=== PATIENT | male | born 1985 | race Caucasian/White ===

== ENCOUNTER 2016-12-25 23:02 | Emergency (ER) | payer OTHER ==
[~2016-12-25] VITALS: Ht 177.8 cm; Wt 151.0 kg
[~2016-12-25 23:02] MED LIST: PERCOCET PO; VIC PO
[2016-12-25 23:57] VITALS: Ht 177.8 cm; Wt 151.0 kg
[2016-12-26] MEDS ORDERED: morphine 4 MG/ML VIAL IV STA (00:47)
[2016-12-26] MEDS ORDERED: ONDANSETRON 4 MG INJ IV STA (00:47)
--- NOTE | 2016-12-26 00:51 | ERD ---
ER Documentation Chief Complaint Date/Time DATE: 12/26/16 TIME: 00:49 Chief Complaint Umbillical hernia for surgery HPI 31-year-old male presents to emergency department for complaints of periumbilical pain started today, patient has history of umbilical hernia, is scheduled for surgery tomorrow afternoon, tonight, he felt a pop in his periumbilical area, started to have the pain afterwards, throbbing pain, 8/10 scale, radiates to the bilateral lower legs. Patient denies any fever or chills. Patient denies any nausea vomiting. Patient denies any diarrhea or constipation. Patient took [place] for pain with only mild relief. ROS All systems reviewed and are negative except as per history of present illness. Medications Home Meds Reported Medications Oxycodone Hcl/Acetaminophen (Percocet) 1 Tab Tab, 1 TAB PO Q6NARC Y 05/20/13 Acetaminophen/Hydrocodone (Vicodin) 1 Tab Tab, 1 TAB PO BID 06/11/11 Allergies Allergies: Coded Allergies: No Known Allergy (Verified , 03/26/12) NKA PER SDS PRE-OP ORDER SHEET 06/11/11 PMhx/Soc History of Surgery: Yes (RIGHT SHOULDER SX, LEFT KNEE SX X2) Anesthesia Reaction: No Hx Neurological Disorder: No Hx Respiratory Disorders: No Hx Cardiac Disorders: No Hx Psychiatric Problems: No Hx Miscellaneous Medical Probl: No Hx Alcohol Use: Yes Hx Substance Use: No Hx Tobacco Use: Yes FmHx Family History: No coronary disease, No diabetes, No other Physical Exam Vitals Vital Signs Date Time Temp Pulse Resp B/P Pulse Ox O2 Delivery O2 Flow Rate FiO2 12/25/16 23:57 99.5 95 20 145/96 100 Physical Exam GENERAL: The patient is well developed and appropriate for usual state of health, in no apparent distress. CHEST: Clear to auscultation bilaterally. There are no rales, wheezes or rhonchi. HEART: Regular rate and rhythm. No murmurs, clicks, rubs or gallops. No S3 or S4. ABDOMEN: Soft, nontender and nondistended. Good bowel sounds. No rebound or guarding. No gross peritonitis. No gross organomegaly or masses. No Alvarez sign or McBurney point tenderness. BACK: No midline or flank tenderness. EXTREMITIES: Equal pulses bilaterally. There is no peripheral clubbing, cyanosis or edema. No focal swelling or erythema. Full range of motion. Grossly neurovascularly intact. NEURO: Alert and oriented. Cranial nerves 2-12 intact. Motor strength in all 4 extremities with 5/5 strength. Sensation grossly intact. Normal speech and gait. SKIN: There is no apparent rash or petechia. The skin is warm and dry. HEMATOLOGIC AND LYMPHATIC: There is no evidence of excessive bruising or lymphedema. No gross cervical, axillary, or inguinal lymphadenopathy. Result Diagram: 12/26/169912/26/1699 Results 24 hrs Laboratory Tests Test 12/26/16 01:00 12/26/16 01:08 White Blood Count 10.910^3/ul Red Blood Count 4.8310^6/ul Hemoglobin 15.3g/dl Hematocrit 45.0% Mean Corpuscular Volume 93.2fl Mean Corpuscular Hemoglobin 31.7pg Mean Corpuscular Hemoglobin Concent 34.0g/dl Red Cell Distribution Width 12.8% Platelet Count 74766^3/UL Mean Platelet Volume 9.6fl Neutrophils % 59.7% Lymphocytes % 29.8% Monocytes % 9.7% Eosinophils % 0.0% Basophils % 0.2% Nucleated Red Blood Cells % 0.0/100WBC Neutrophils # 6.510^3/ul Lymphocytes # 3.210^3/ul Monocytes # 1.110^3/ul Eosinophils # 0.010^3/ul Basophils # 0.010^3/ul Nucleated Red Blood Cells # 0.010^3/ul Sodium Level 142mmol/L Potassium Level 3.7mmol/L Chloride Level 106mmol/L Carbon Dioxide Level 27mmol/L Anion Gap 13 Blood Urea Nitrogen 12mg/dl Creatinine 0.82mg/dl Glucose Level 97mg/dl Calcium Level 8.8mg/dl Total Bilirubin 0.1mg/dl Direct Bilirubin 0.00mg/dl Indirect Bilirubin 0.1mg/dl Aspartate Amino Transf (AST/SGOT) 39IU/L Alanine Aminotransferase (ALT/SGPT) 55IU/L Alkaline Phosphatase 90IU/L Total Protein 7.5g/dl Albumin 3.9g/dl Globulin 3.60g/dl Albumin/Globulin Ratio 1.08 Lipase 87U/L Urine Color LT. YELLOW Urine Clarity CLEAR Urine pH 6.5 Urine Specific [place] 1.025 Urine Ketones NEGATIVE Urine Nitrite NEGATIVE Urine Bilirubin NEGATIVE Urine Urobilinogen 1.0 E.U./dL Urine Leukocyte Esterase NEGATIVE Urine Hemoglobin NEGATIVE Urine Glucose NEGATIVE% Urine Total Protein NEGATIVE Current Medications Medications (Trade) Dose Ordered Sig/Yuki Route PRN Reason Start Time Stop Time Status Last Admin Dose Admin Morphine Sulfate (morphine) 4 mg ONCE STAT IV 12/26/16 00:47 12/26/16 00:49 DC 12/26/16 01:06 Ondansetron HCl 4 mg 4 mg ONCE STAT IV 12/26/16 00:47 12/26/16 00:49 DC 12/26/16 01:06 Sodium Chloride (NS) 100 ml @ ud STK-MED ONCE .ROUTE 12/26/16 01:29 12/26/16 01:30 DC 12/26/16 01:49 Iohexol (Omnipaque 300mg/ ml) 150 ml STK-MED ONCE .ROUTE 12/26/16 01:30 12/26/16 01:31 DC 12/26/16 01:49 PROCEDURE: CT ABDOMEN/PELVIS WITH CONTRAST CLINICAL INDICATION: 31-year-old male with abdominal pain. TECHNIQUE: The study was performed utilizing a [employer] VCT 64-slice CT scanner. Direct axial sections were obtained through the abdomen and pelvis with the use of 100 cc of Omnipaque-300 nonionic intravenous contrast material. Sagittal and coronal reformations were obtained. One or more of the following dose reduction techniques were utilized: automated exposure control, adjustment of the mA and/or kV according to patient's size or use of iterative reconstruction technique. The images were reviewed on a PACS workstation. CTD/ vol = 23.9 mGy; Total Exam DLP = 1734.0 mGy-cm. COMPARISON: None. FINDINGS: The lung bases are unremarkable. There is no evidence for significant pleural effusion. The liver has a normal size and contour without focal areas of abnormal density or contrast enhancement. No intrahepatic nor extrahepatic biliary ductal dilatation is seen. The gallbladder demonstrates no wall thickening nor pericholecystic fluid. No biliary stones are evident. The pancreas is without areas of abnormal attenuation or contrast enhancement. This spleen is identified and has a normal size without abnormal density or contrast enhancement. The adrenal glands are unremarkable. The kidneys are functional bilaterally without abnormal density. No hydroureteronephrosis nor nephroureterolithiasis is evident. The urinary bladder contains urine. There is no evidence for bowel obstruction. The appendix is ankle and is without edema or surrounding inflammatory reaction. There is no significant free fluid. Shotty mesenteric lymph nodes are seen. The prostate is not enlarged however there are central calcifications within it. The aortoiliac vessels are without aneurysmal dilatation. The osseous structures are intact. IMPRESSION: 1. No CT evidence for appendicitis. 2. Shotty mesenteric lymph nodes. .Yaniv Mata MD, MD Date Time Electronically viewed and signed by .Yaniv Mata MD, MD on 12/26/2016 01:57 .M/ CC: MARLON CUELLAR ADULT AND PEDIATRIC NEUROLOGIST Patient was given medication for pain here in emergency department, after treatment, patient verbalized feeling much better. Patient's pain is improved.Patient was given Zofran here in the emergency department. After treatment, patient was able to tolerate po fluids here in the emergency department without any vomiting. There is no signs and symptoms of dehydration. Normal saline IV bolus was given here in emergency department for rehydration, patient tolerated IV fluids. Procedures/MDM Medical Decision Making: Patient abdominal pain is nonspecific at this time, no visualized umbilical hernia or incarcerated hernia noted, no bowel obstruction noted. There is low suspicion for abdominal emergencies at this time. Patients abdominal exam is normal at this time. Patients radiology exam does not show any abdominal emergencies at this time. There is low suspicion for appendicitis , cholecystitis, abdominal aortic aneurysms or peritonitis at this time. There is low suspicion for sepsis. Patient appears well and is hemodynamically stable. Disposition: Home. Condition: Stable Prescription Percocet, Zofran Instructions: Patient is advised to take medications as prescribed. Patient is advised to rest, increase fluid intake and do brat diet for next 1-2 days and progress as tolerated. Patient is advised that if symptoms are worse, severe abdominal pain, uncontrolled vomiting, high fever, severe flank pain, worst signs and symptoms, to return to the emergency department immediately. Otherwise, patient can follow up with primary care doctor on to 2 days, go to appointment for surgery tomorrow as per appointment. Departure Diagnosis: Primary Impression: Abdominal pain Abdominal location: periumbilical Qualified Code: R10.33 - Periumbilical abdominal pain Condition: Stable Patient Instructions: Abdominal Pain Additional Instructions: Patient is advised to take medications as prescribed. Patient is advised to rest , increase fluid intake and do brat diet for next 1-2 days and progress as tolerated. Patient is advised that if symptoms are worse, severe abdominal pain , uncontrolled vomiting, high fever, severe flank pain, worst signs and symptoms , to return to the emergency department immediately. Otherwise, patient can follow up with primary care doctor on to 2 days, go to appointment for surgery tomorrow as per appointment. MARLON CUELLAR NP Dec 26, 2016 00:51
[2016-12-26 01:08] LABS: ADD SCAN DIFF NO
[2016-12-26 01:13] LABS: BASOPHILS % 0.2 % (0.0-2.0); HEMOGLOBIN 15.3 g/dl (14.0-18.0); LYMPHOCYTES # 3.2 10^3/ul (0.8-2.9); LYMPHOCYTES % 29.8 % (15.0-51.0); MEAN CORPUSCULAR HEMOGLOBIN 31.7 pg (29.0-33.0); MEAN CORPUSCULAR VOLUME 93.2 fl (82.0-101.0); MEAN PLATELET VOLUME 9.6 fl (7.4-10.4); MONOCYTE # 1.1 10^3/ul (0.3-0.9); MONOCYTES % 9.7 % (0.0-11.0); NEUTROPHIL # 6.5 10^3/ul (1.6-7.5); NEUTROPHILS % 59.7 % (39.0-77.0); PLATELET COUNT 245 10^3/UL (140-415); RED BLOOD COUNT 4.83 10^6/ul (4.70-6.10); RED CELL DISTRIBUTION WIDTH 12.8 % (11.5-14.5); WHITE BLOOD COUNT 10.9 10^3/ul (4.8-10.8)
[2016-12-26 01:18] LABS: ADD UMIC NO; URINE BILIRUBIN (Dip) NEGATIVE (NEGATIVE); URINE BLOOD (Dip) NEGATIVE (NEGATIVE); URINE COLOR LT. YELLOW (YELLOW); URINE GLUCOSE (Dip) NEGATIVE (NEGATIVE); URINE KETONES (Dip) NEGATIVE (NEGATIVE); URINE LEUKOCYTE ESTERASE (Dip) NEGATIVE (NEGATIVE); URINE NITRITE (Dip) NEGATIVE (NEGATIVE); URINE TOTAL PROTEIN (Dip) NEGATIVE (NEGATIVE); URINE UROBILINOGEN (Dip) 1.0 E.U./dL (0.1-1.0)
[2016-12-26 01:22] LABS: ALBUMIN 3.9 g/dl (3.3-4.9)
[2016-12-26 01:23] LABS: POTASSIUM 3.7 mmol/L (3.5-5.1)
[2016-12-26 01:25] LABS: ALBUMIN/GLOBULIN RATIO 1.08; BILIRUBIN,INDIRECT 0.1 mg/dl (0-1.1); BILIRUBIN,TOTAL 0.1 mg/dl (0.2-1.3); CREATININE 0.82 mg/dl (0.61-1.24); TOTAL PROTEIN 7.5 g/dl (6.1-8.1)
[2016-12-26 01:26] LABS: CALCIUM 8.8 mg/dl (8.4-10.2)
[2016-12-26] MEDS ORDERED: SOD CHLORIDE 0.9% 100 ML ONE (01:29)
[2016-12-26] MEDS ORDERED: IOHEXOL 300MG/ML 150 ML BTL ONE (01:30)
--- NOTE | 2016-12-26 01:57 | RADRPT ---
PROCEDURE: CT ABDOMEN/PELVIS WITH CONTRAST CLINICAL INDICATION: 31-year-old male with abdominal pain. TECHNIQUE: The study was performed utilizing a GE [employer] VCT 64-slice CT scanner. Direct axia l sections were obtained through the abdomen and pelvis with the use of 100 cc of Omnipaque-300 sven onic intravenous contrast material. Sagittal and coronal reformations were obtained. One or more of the following dose reduction techniques were utilized: automated exposure control, adjustment of the mA and/or kV according to patient's size or use of iterative reconstruction technique. The images were reviewed on a PACS workstation. CTD/vol = 23.9 mGy; Total Exam DLP = 1734.0 mGy-cm. COMPARISON: None. FINDINGS: The lung bases are unremarkable. There is no evidence for significant pleural effusion. The liver has a normal size and contour without focal areas of abnormal density or contrast enhancement. No in trahepatic nor extrahepatic biliary ductal dilatation is seen. The gallbladder demonstrates no wall thickening nor pericholecystic fluid. No biliary stones are evident. The pancreas is without areas o f abnormal attenuation or contrast enhancement. This spleen is identified and has a normal size wit hout abnormal density or contrast enhancement. The adrenal glands are unremarkable. The kidneys are functional bilaterally without abnormal density. No hydroureteronephrosis nor nephroureterolithiasis is evident. The urinary bladder contains urine. There is no evidence for bowel obstruction. The ap pendix is ankle and is without edema or surrounding inflammatory reaction. There is no significant f ree fluid. Shotty mesenteric lymph nodes are seen. The prostate is not enlarged however there are central calcifications within it. The aortoiliac vessels are without aneurysmal dilatation. The oss eous structures are intact. IMPRESSION: 1. No CT evidence for appendicitis. 2. Shotty mesenteric lymph nodes. .Yaniv Mata MD, MD Date Time Electronically viewed and signed by .Yaniv Mata MD, on 12/26/2016 01:57 .Kelly/
[2016-12-26] MEDS ORDERED: OXYC-279 PO (02:06)
[2016-12-26] MEDS ORDERED: ONDA4TAB14 PO (02:06)
[2016-12-26 02:55] VITALS: BP 120/67; PULSE 80; RESP 20; TEMP 98.5
== END 2016-12-26 02:56 | disposition home or self-care (01) ==
LOC: FTE 23:02
DX: R10.33 Periumbilical pain (principal); F17.210 Nicotine dependence, cigarettes, uncomplicated
CPT/HCPCS: 36415; 74177; 80053; 81003; 83690; 85025; 96374; 96375; J2270; J2405; Q9967; Z7502; Z7610

== ENCOUNTER 2017-03-03 20:54 | Emergency (ER) | payer OTHER ==
[~2017-03-03] VITALS: Ht 177.8 cm; Wt 152.5 kg
[~2017-03-03 20:54] MED LIST changes: +ONDA4TAB14 PO; +OXYC-279 PO
[2017-03-03 21:01] VITALS: Ht 177.8 cm; Wt 152.5 kg
[2017-03-03] MEDS ORDERED: HYDROmorphONE 1 MG/ML SYG IV STA (23:14)
[2017-03-03] MEDS ORDERED: ONDANSETRON 4 MG INJ IV STA (23:14)
[2017-03-03] MEDS ORDERED: SOD CHLORIDE 0.9% 1,000 ML IV STA (23:14)
[2017-03-04 00:07] LABS: ADD SCAN DIFF NO; BASOPHILS % 0.2 % (0.0-2.0); HEMATOCRIT 45.9 % (42.0-52.0); HEMOGLOBIN 15.7 g/dl (14.0-18.0); MEAN CORPUSCULAR HEMOGLOBIN 31.6 pg (29.0-33.0); MEAN CORPUSCULAR HGB CONC 34.2 g/dl (32.0-37.0); MEAN CORPUSCULAR VOLUME 92.4 fl (82.0-101.0); MEAN PLATELET VOLUME 9.3 fl (7.4-10.4); MONOCYTE # 0.8 10^3/ul (0.3-0.9); MONOCYTES % 6.8 % (0.0-11.0); NEUTROPHIL # 7.2 10^3/ul (1.6-7.5); NEUTROPHILS % 65.4 % (39.0-77.0); PLATELET COUNT 249 10^3/UL (140-415); RED BLOOD COUNT 4.97 10^6/ul (4.70-6.10); RED CELL DISTRIBUTION WIDTH 12.5 % (11.5-14.5)
[2017-03-04 00:13] LABS: ADD UMIC NO; URINE BILIRUBIN (Dip) NEGATIVE (NEGATIVE); URINE BLOOD (Dip) NEGATIVE (NEGATIVE); URINE COLOR LT. YELLOW (YELLOW); URINE GLUCOSE (Dip) NEGATIVE (NEGATIVE); URINE KETONES (Dip) NEGATIVE (NEGATIVE); URINE LEUKOCYTE ESTERASE (Dip) NEGATIVE (NEGATIVE); URINE NITRITE (Dip) NEGATIVE (NEGATIVE); URINE TOTAL PROTEIN (Dip) NEGATIVE (NEGATIVE); URINE UROBILINOGEN (Dip) 0.2 E.U./dL (0.1-1.0)
--- NOTE | 2017-03-04 00:20 | RADRPT ---
PROCEDURE: ULTRASOUND TESTICULAR CLINICAL INDICATION: 31-year-old male with left-sided testicular pain. TECHNIQUE: Multiple sonographic images of the scrotal region were obtained utilizing a linear arra y transducer with grayscale and color-flow and a Doppler imaging. The images were reviewed on a high -resolution PACS workstation. COMPARISON: None. FINDINGS: The right testicle is well visualized and has a normal echotexture. No focal areas of abnormal echog enicity are visualized. The right testicle measures 4.0 x 2.3 x 2.5 cm. There is normal color-flow. The right epididymis is visualized and measures approximately measures 9 x 4 x 5 mm. There is normal color-flow. There is a small right-sided hydrocele. There is a small echogenic focus within the left testicle measuring 3 x 2 mm which shadowing most marshall ggestive of a calcification. The left testicle measures 3.9 x 2.6 x 2.3 cm. There is normal color-f low. The left epididymis is visualized and measures approximately measures 11 x 7 x 5 mm. There is n ormal color-flow. There is a small left-sided hydrocele. IMPRESSION: 1. No sonographic evidence for testicular torsion. 2. Small bilateral hydroceles. 3. Small left testicular 3 x 2 mm calcification most likely due to prior infectious process or trau ma. .Yaniv Mata MD, MD Date Time Electronically viewed and signed by .Yaniv Mata MD, MD on 03/04/2017 00:20 .M/
[2017-03-04 00:28] LABS: ALBUMIN 4.4 g/dl (3.3-4.9); ALBUMIN/GLOBULIN RATIO 1.25; BILIRUBIN,INDIRECT 0.2 mg/dl (0-1.1); BILIRUBIN,TOTAL 0.2 mg/dl (0.2-1.3); CALCIUM 9.5 mg/dl (8.4-10.2); CREATININE 0.76 mg/dl (0.61-1.24); TOTAL PROTEIN 7.9 g/dl (6.1-8.1)
[2017-03-04] MEDS ORDERED: IOHEXOL 300MG/ML 150 ML BTL ONE (00:47)
[2017-03-04] MEDS ORDERED: SOD CHLORIDE 0.9% 100 ML ONE (00:47)
--- NOTE | 2017-03-04 01:05 | ERD ---
ER Documentation Chief Complaint Date/Time DATE: 03/04/17 TIME: 01:03 Chief Complaint Pt has umbilical hernia that is not reduceable, PCP told to come here HPI This is a 31-year-old male presents to the ER with severe umbilical pain secondary to known umbilical hernia. Patient has had this hernia over the last 6 months. On Friday night patient went to another hospital where hernia was reduced, however on Friday afternoon hernia popped out again. Since then patient has had increasing pain and has had nausea with no vomiting. Patient states that pain is severe and radiates down into his left testicle. Patient denies any urinary frequency or dysuria. Patient states that he has been constipated over the last 2 days. Patient denies any fevers or chills. His primary care doctor told to come to the ER since patient said he cannot reduce hernia. ROS 12 point review of systems was done, all negative except per HPI. Medications Home Meds Active Scripts Oxycodone HCl/Acetaminophen (Percocet 5-325 mg Tablet) 1 Each Tablet, 1 EACH PO Q6, #15 TAB Prov:VARUN HARRIS 03/04/17 Ibuprofen* (Motrin*) 600 Mg Tab, 600 MG PO Q6, #30 TAB Prov:VARUN HARRIS 03/04/17 Ondansetron (Ondansetron Odt) 4 Mg Tab.rapdis, 4 MG PO Q8 Y for NAUSEA AND/OR VOMITING, #30 TAB Prov:MARLON CUELLAR [employer] T[employer]ER 12/26/16 Oxycodone HCl/Acetaminophen (Percocet 5-325 mg Tablet) 1 Each Tablet, 1 EACH PO Q6 for SEVERE PAIN LEVEL 7-10, #20 TAB Prov:MARLON CUELLAR [employer] 12/26/16 Reported Medications Oxycodone Hcl/Acetaminophen (Percocet) 1 Tab Tab, 1 TAB PO Q6NARC Y 05/20/13 Acetaminophen/Hydrocodone (Vicodin) 1 Tab Tab, 1 TAB PO BID 06/11/11 Allergies Allergies: Coded Allergies: No Known Allergy (Verified , 03/03/17) NKA PER SDS PRE-OP ORDER SHEET 06/11/11 PMhx/Soc History of Surgery: Yes (left knee surgery) Anesthesia Reaction: No Hx Neurological Disorder: No Hx Respiratory Disorders: No Hx Cardiac Disorders: No Hx Psychiatric Problems: No Hx Miscellaneous Medical Probl: Yes (hernia) Hx Alcohol Use: No Hx Substance Use: No Hx Tobacco Use: Yes Smoking Status: Current every day smoker Physical Exam Vitals Vital Signs Date Time Temp Pulse Resp B/P Pulse Ox O2 Delivery O2 Flow Rate FiO2 03/03/17 21:01 99.1 97 20 146/102 100 Physical Exam GENERAL: The patient is well developed and appropriate for usual state of health , in no apparent distress. Patient is obese. HEENT: Atraumatic. CHEST: Clear to auscultation bilaterally. There are no rales, wheezes or rhonchi. HEART: Regular rate and rhythm. No murmurs, clicks, rubs or gallops. ABDOMEN: Umbilical hernia that is extremely tender to palpation. Good bowel sounds. No rebound or guarding. No gross peritonitis. No gross organomegaly or masses. No Alvarez sign or McBurney point tenderness. BACK: No midline or flank tenderness. EXTREMITIES: Equal pulses bilaterally. There is no peripheral clubbing, cyanosis or edema. No focal swelling or erythema. Full range of motion. Grossly neurovascularly intact. NEURO: Alert and oriented. Result Diagram: 03/03/17 2355 03/03/17 2355 Results 24 hrs Laboratory Tests Test 03/03/17 23:55 White Blood Count 11.010^3/ul Red Blood Count 4.9710^6/ul Hemoglobin 15.7g/dl Hematocrit 45.9% Mean Corpuscular Volume 92.4fl Mean Corpuscular Hemoglobin 31.6pg Mean Corpuscular Hemoglobin Concent 34.2g/dl Red Cell Distribution Width 12.5% Platelet Count 27604^3/UL Mean Platelet Volume 9.3fl Neutrophils % 65.4% Lymphocytes % 27.0% Monocytes % 6.8% Eosinophils % 0.0% Basophils % 0.2% Nucleated Red Blood Cells % 0.0/100WBC Neutrophils # 7.210^3/ul Lymphocytes # 3.010^3/ul Monocytes # 0.810^3/ul Eosinophils # 0.010^3/ul Basophils # 0.010^3/ul Nucleated Red Blood Cells # 0.010^3/ul Urine Color LT. YELLOW Urine Clarity CLEAR Urine pH 7.0 Urine Specific [place] 1.015 Urine Ketones NEGATIVE Urine Nitrite NEGATIVE Urine Bilirubin NEGATIVE Urine Urobilinogen 0.2 E.U./dL Urine Leukocyte Esterase NEGATIVE Urine Hemoglobin NEGATIVE Urine Glucose NEGATIVE% Urine Total Protein NEGATIVE Sodium Level 143mmol/L Potassium Level 4.0mmol/L Chloride Level 105mmol/L Carbon Dioxide Level 29mmol/L Anion Gap 13 Blood Urea Nitrogen 12mg/dl Creatinine 0.76mg/dl Glucose Level 83mg/dl Calcium Level 9.5mg/dl Total Bilirubin 0.2mg/dl Direct Bilirubin 0.00mg/dl Indirect Bilirubin 0.2mg/dl Aspartate Amino Transf (AST/SGOT) 45IU/L Alanine Aminotransferase (ALT/SGPT) 74IU/L Alkaline Phosphatase 80IU/L Total Protein 7.9g/dl Albumin 4.4g/dl Globulin 3.50g/dl Albumin/Globulin Ratio 1.25 Lipase 93U/L Current Medications Medications (Trade) Dose Ordered Sig/Yuki Route PRN Reason Start Time Stop Time Status Last Admin Dose Admin Sodium Chloride (NS) 1,000 ml @ 1,000 mls/hr Q1H STAT IV 03/03/17 23:14 03/04/17 00:13 DC 03/04/17 00:11 Hydromorphone HCl (Dilaudid) 1 mg ONCE STAT IV 03/03/17 23:14 03/03/17 23:16 DC 03/04/17 00:10 Ondansetron HCl 4 mg 4 mg ONCE STAT IV 03/03/17 23:14 03/03/17 23:16 DC 03/04/17 00:10 Sodium Chloride (NS) 100 ml @ ud STK-MED ONCE .ROUTE 03/04/17 00:47 03/04/17 00:48 DC 03/04/17 01:06 Iohexol (Omnipaque 300mg/ ml) 150 ml STK-MED ONCE .ROUTE 03/04/17 00:47 03/04/17 00:48 DC 03/04/17 01:06 Hydromorphone HCl (Dilaudid) 1 mg ONCE STAT IV 03/04/17 01:34 03/04/17 01:35 DC 03/04/17 01:47 Procedures/MDM This is a 31-year-old male that presents to the ER with a known umbilical hernia and umbilical pain. At this time I was unable to feel hernia on physical examination, I doubt that hernia is strangulated. CT imaging was done and there was only a small umbilical fat-containing hernia. Patient is afebrile and his pain was controlled in the ER with 2 mg of Dilaudid. I discussed his case with my supervising physician , and he agrees with my medical decision making. Patient will be sent home with ibuprofen and Percocet. He needs to follow-up with the surgeon tomorrow. Patient my medical decision making with the patient he understands and agrees with plan. Patient should return to ER sooner if symptoms worsen. Departure Diagnosis: Primary Impression: Umbilical hernia Condition: Stable VARUN HARRIS Mar 04, 2017 01:05
--- NOTE | 2017-03-04 01:20 | RADRPT ---
PROCEDURE: CT ABDOMEN/PELVIS WITH CONTRAST CLINICAL INDICATION: 31-year-old male with abdominal pain. TECHNIQUE: The study was performed utilizing a GE [employer] VCT 64-slice CT scanner. Direct axia l sections were obtained through the abdomen and pelvis with the use of 100 cc of Omnipaque-300 sven onic intravenous contrast material. Sagittal and coronal reformations were obtained. One or more of the following dose reduction techniques were utilized: automated exposure control, adjustment of the mA and/or kV according to patient's size or use of iterative reconstruction technique. The images were reviewed on a PACS workstation. CTD/vol = 23.9 mGy; Total Exam DLP = 1832.2 mGy-cm. COMPARISON: CT abdomen/pelvis December 26, 2016; testicular ultrasound March 03, 2017. FINDINGS: The lung bases are unremarkable. There is no evidence for significant pleural effusion. The liver has a normal size and contour without focal areas of abnormal density or contrast enhancement. No in trahepatic nor extrahepatic biliary ductal dilatation is seen. The gallbladder demonstrates no wall thickening nor pericholecystic fluid. No biliary stones are evident. The pancreas is without areas o f abnormal attenuation or contrast enhancement. This spleen is identified and has a normal size wit hout abnormal density or contrast enhancement. The adrenal glands are unremarkable. The kidneys are functional bilaterally without abnormal density. No hydroureteronephrosis nor nephroureterolithiasis is evident. The urinary bladder contains urine. There is a small umbilical hernia present with an o pening of 12 x 15 mm containing fat without significant interval change. There is mild retained sto ol within the colon without obstruction. The appendix is retrocecal and is without edema or surrounding inflammatory reaction. There is no significant free fluid. There is a small nonspecific left lower quadrant 7 x 7 mm mesenteric calcification. Additional shotty mesenteric lymph nodes are noted. The aortoiliac vessels are without aneurysmal dilatation. The osseous structures are intact. IMPRESSION: 1. Small umbilical hernia containing fat without interval change. 2. Mild retained stool without obstruction. 3. No CT evidence for appendicitis. 4. Shotty mesenteric lymph nodes. .Yaniv Mata MD, MD Date Time Electronically viewed and signed by .Yaniv Mata MD, MD on 03/04/2017 01:20 .Kelly/
[2017-03-04] MEDS ORDERED: HYDROmorphONE 1 MG/ML SYG IV STA (01:34)
[2017-03-04] MEDS ORDERED: IBUP-1542 PO (01:46)
[2017-03-04] MEDS ORDERED: OXYC-279 PO (01:47)
[2017-03-04 02:24] VITALS: BP 115/65; PULSE 85; RESP 20; TEMP 98
== END 2017-03-04 02:25 | disposition home or self-care (01) ==
LOC: FTE 20:54
DX: K42.9 Umbilical hernia without obstruction or gangrene (principal); F17.210 Nicotine dependence, cigarettes, uncomplicated; R11.0 Nausea
CPT/HCPCS: 36415; 74177; 76870; 80053; 81003; 83690; 85025; 96374; 96375; 96376; J1170; J2405; J7030; Q9967; Z7502; Z7610

== ENCOUNTER 2017-05-05 16:02 | Emergency (ER) | payer OTHER ==
[~2017-05-05] VITALS: Ht 177.8 cm; Wt 148.0 kg
[~2017-05-05 16:02] MED LIST changes: +IBUP-1542 PO
[2017-05-05 16:13] VITALS: Ht 177.8 cm; Wt 148.0 kg
[2017-05-05] MEDS ORDERED: SOD CHLORIDE 0.9% 1,000 ML IV STA (16:47)
[2017-05-05] MEDS ORDERED: ONDANSETRON 4 MG INJ IV STA (16:47)
[2017-05-05] MEDS ORDERED: HYDROmorphONE 1 MG/ML SYG IV STA (16:47)
[2017-05-05 17:13] LABS: BASOPHILS % 0.2 % (0.0-2.0); HEMATOCRIT 48.3 % (42.0-52.0); HEMOGLOBIN 16.3 g/dl (14.0-18.0); LYMPHOCYTES # 2.7 10^3/ul (0.8-2.9); LYMPHOCYTES % 28.6 % (15.0-51.0); MEAN CORPUSCULAR HGB CONC 33.7 g/dl (32.0-37.0); MEAN CORPUSCULAR VOLUME 91.8 fl (82.0-101.0); MEAN PLATELET VOLUME 9.5 fl (7.4-10.4); MONOCYTE # 0.9 10^3/ul (0.3-0.9); MONOCYTES % 9.7 % (0.0-11.0); NEUTROPHILS % 61.1 % (39.0-77.0); PLATELET COUNT 274 10^3/UL (140-415); RED BLOOD COUNT 5.26 10^6/ul (4.70-6.10); RED CELL DISTRIBUTION WIDTH 13.1 % (11.5-14.5); WHITE BLOOD COUNT 9.3 10^3/ul (4.8-10.8)
[2017-05-05 17:18] LABS: ADD UMIC YES; UR ASCORBIC ACID NEGATIVE (NEGATIVE); UR BILIRUBIN (Dip) NEGATIVE (NEGATIVE); UR BLOOD (Dip) NEGATIVE (NEGATIVE); UR CLARITY CLOUDY (CLEAR); UR COLOR AMBER (YELLOW); UR GLUCOSE (Dip) NEGATIVE (NEGATIVE); UR KETONES (Dip) NEGATIVE (NEGATIVE); UR LEUKOCYTE ESTERASE (Dip) NEGATIVE Leu/ul (NEGATIVE); UR NITRITE (Dip) NEGATIVE (NEGATIVE); UR RBC 0 /HPF (0-5); UR SPECIFIC GRAVITY (Dip) 1.019 (1.003-1.030); UR TOTAL PROTEIN (Dip) NEGATIVE (NEGATIVE); UR UROBILINOGEN (Dip) 1+ mg/dL (NEGATIVE)
[2017-05-05 17:36] LABS: ALBUMIN 4.4 g/dl (3.3-4.9); ALBUMIN/GLOBULIN RATIO 1.12; BILIRUBIN,INDIRECT 0.3 mg/dl (0-1.1); BILIRUBIN,TOTAL 0.3 mg/dl (0.2-1.3); CALCIUM 9.4 mg/dl (8.4-10.2); CREATININE 0.65 mg/dl (0.61-1.24); POTASSIUM 3.8 mmol/L (3.5-5.1); TOTAL PROTEIN 8.3 g/dl (6.1-8.1)
--- NOTE | 2017-05-05 17:57 | RADRPT ---
PROCEDURE: Chest x-ray CLINICAL INDICATION: Shortness of breath TECHNIQUE: Chest single view COMPARISON: None FINDINGS: The heart is normal in size. The pulmonary vessels are normal in caliber. The lungs are clear. Th e costophrenic angles are sharp. The visualized bony thorax is unremarkable. IMPRESSION: No acute cardiopulmonary disease. RPTAT: HH .Godfrey Whitfield MD, Date Time Electronically viewed and signed by .Godfrey Whitfield MD, MD on 05/05/2017 17:57 .W/
[2017-05-05] MEDS ORDERED: IOHEXOL 300MG/ML 150 ML BTL ONE (18:13)
[2017-05-05] MEDS ORDERED: SOD CHLORIDE 0.9% 100 ML ONE (18:13)
--- NOTE | 2017-05-05 18:41 | RADRPT ---
PROCEDURE: US Scrotal CLINICAL INDICATION: Left testicular pain TECHNIQUE: Images were taken during real time interrogation of the scrotum. Color Doppler was also performed. COMPARISON: 03/03/2017 FINDINGS: Right Testicle: Is normal in size measuring 4.0 x 2.7 x 2.3 cm No mass is identified. The echotexture is normal. There is normal vascular flow on color Doppler. There is no hydrocele. No varicocele is evident. Left testicle: Is slightly smaller in size measuring 3.0 x 2.9 x 1.9 cm A 1.3 mm echogenic focus is again seen within the left testicle. No other lesion is evident. There is normal vascular flow on color Doppler. There is no hydrocele. No varicocele is identified. Right Epidydemus: Appears normal. Left Epedidymus: A 1.2 mm cyst is seen within the left epididymal head. IMPRESSION: 1. The testicles are within normal range in size of the left testicle is somewhat smaller than the right. There is again a 1.3 mm echogenic focus within the medial left testicle, which mammogram the present a calcification. No intratesticular mass is evident. Arterial flow is again demonstrated i n each testicle. 2. No significant hydrocele is presently identified. 3. A 1.2 mm cyst is now seen within the left epididymal head. Physician Collin Date Time Electronically viewed and signed by Physician Collin on 05/05/2017 18:40 RH/
--- NOTE | 2017-05-05 18:47 | RADRPT ---
PROCEDURE: US Chest Right CLINICAL INDICATION: Right lateral lump TECHNIQUE: Images taken during real time interrogation of the area palpability within the right la teral chest COMPARISON: None FINDINGS: A complex cystic mass measuring 1.4 x 1.3 x 1.2 cm is seen adjacent to a right lateral rib. The wal l appears slightly nodular with a 1.8 mm nodular projection extending into the lumen. There is mild peripheral hypervascularity. There is increased through transmission. IMPRESSION: At the site of palpability, there is a complex largely cystic lesion mass adjacent to a rib with internal debris and peripheral nodularity and vascularity measuring 1.4 x 1.3 x 1.2 cm Physician Collin Date Time Electronically viewed and signed by Dionne Peck Physician on 05/05/2017 18:46 /
--- NOTE | 2017-05-05 18:51 | RADRPT ---
PROCEDURE: CT abdomen and pelvis with IV contrast CLINICAL INDICATION: Abdominal pain and testicular pain. TECHNIQUE: Axial images were obtained through the abdomen and pelvis after the IV administration o f 100 cc Omnipaque 300 IV contrast. Coronal and sagittal reconstructions were obtained. Automated e xposure control was utilized. DLP = 1610.4 mGy-cm. CTDiol= 23.8 mGy. One or more of the following post reduction techniques were used: - Automated exposure control. - Adjustment of the mA and/or Kv according to patient's size. - Use of iterative reconstruction technique COMPARISON: March 04, 2017 FINDINGS: The visualized lower lungs are clear. Heart size is within normal limits. The liver, gallbladder, pancreas, spleen and adrenals are unremarkable. The kidneys demonstrate a normal appearance. No obstructive uropathy is observed. The bladder is fi lled with a small to moderate amount of urine. The prostate and seminal vesicles are unremarkable. Air and stool are seen scattered within the colon. The appendix is normal. No dilated loops of sm all bowel are observed. The stomach and duodenum are unremarkable. No intra-abdominal or pelvic free fluid or fluid collections are observed. No intra-abdominal or pe lvic lymphadenopathy is observed. The arterial vasculature demonstrates a normal appearance. The osseous structures appear intact. Mild degenerative changes are seen in the spine. Small, fat filled umbilical hernia is seen. IMPRESSION: No visualized acute intra-abdominal or pelvic process. Mild degenerative changes in the spine. Small, fat filled umbilical hernia. RPTAT: AA .Chente Hussein MD, MD Date Time Electronically viewed and signed by .Chente Hussein MD, MD on 05/05/2017 18:50 .P/
[2017-05-05] MEDS ORDERED: HYDR-906 PO (19:33)
[2017-05-05] MEDS ORDERED: SULF1TAB31 PO (19:33)
[2017-05-05] MEDS ORDERED: IBUP800T25 PO (19:33)
[2017-05-05] MEDS ORDERED: CEPH-443 PO (19:33)
--- NOTE | 2017-05-05 19:46 | ERD ---
ER Documentation Chief Complaint Date/Time DATE: 05/05/17 TIME: 19:38 Chief Complaint Pt with AP and tisticular pain X 2 days, dx with umbilical hernia. HPI 31-year-old male patient with no significant past medical history presents to the ED complaining of umbilical abdominal pain that started 2 months ago but has worsened in the last 2 days. Reports that he feels like the pain is extending into her left testicle. Patient describes it as a sharp type of pain and rates it a 10 out of 10. Reports that he also has a bump on the right side of his chest that is very painful. Reports that he did call Dr. Nicole and he told him to come here to the hospital. Denies any fever, chills, nausea, vomiting, dysuria, urgency, frequency, hematuria, diarrhea, bloody stools, hematemesis. ROS All systems reviewed and are negative except as per history of present illness. Medications Home Meds Active Scripts Sulfamethoxazole/Trimethoprim* (Bactrim Ds* Tablet) 1 Each Tablet, 1 TAB PO BID for 7 Days, #14 TAB Prov:CARMEN COOPER PA-C 05/05/17 Cephalexin* (Keflex*) 500 Mg Capsule, 500 MG PO QID for 7 Days, CAP Prov:CARMEN COOPER PA-C 05/05/17 Ibuprofen* (Motrin*) 800 Mg Tab, 800 MG PO Q6, #30 TAB take with food Prov:CARMEN COOPER PA-C 05/05/17 Hydrocodone/Acetaminophen (Ponce 5-325 Tablet) 1 Each Tablet, 1 TAB PO Q6H Y for PAIN, #14 TAB Prov:CARMEN COOPER PA-C 05/05/17 Oxycodone HCl/Acetaminophen (Percocet 5-325 mg Tablet) 1 Each Tablet, 1 EACH PO Q6, #15 TAB Prov:VARUN HARRIS 03/04/17 Ibuprofen* (Motrin*) 600 Mg Tab, 600 MG PO Q6, #30 TAB Prov:VARUN HARRIS 03/04/17 Ondansetron (Ondansetron Odt) 4 Mg Tab.rapdis, 4 MG PO Q8 Y for NAUSEA AND/OR VOMITING, #30 TAB Prov:MARLON CUELLAR NP 12/26/16 Oxycodone HCl/Acetaminophen (Percocet 5-325 mg Tablet) 1 Each Tablet, 1 EACH PO Q6 for SEVERE PAIN LEVEL 7-10, #20 TAB Prov:MARLON CUELLAR NAN 12/26/16 Reported Medications Oxycodone Hcl/Acetaminophen (Percocet) 1 Tab Tab, 1 TAB PO Q6NARC Y 05/20/13 Acetaminophen/Hydrocodone (Vicodin) 1 Tab Tab, 1 TAB PO BID 06/11/11 Allergies Allergies: Coded Allergies: No Known Allergy (Verified , 03/03/17) NKA PER SDS PRE-OP ORDER SHEET 06/11/11 PMhx/Soc History of Surgery: Yes (left knee surgery) Anesthesia Reaction: No Hx Neurological Disorder: No Hx Respiratory Disorders: No Hx Cardiac Disorders: No Hx Psychiatric Problems: No Hx Miscellaneous Medical Probl: Yes (hernia) Hx Alcohol Use: No Hx Substance Use: No Hx Tobacco Use: Yes Smoking Status: Current every day smoker Physical Exam Vitals Vital Signs Date Time Temp Pulse Resp B/P Pulse Ox O2 Delivery O2 Flow Rate FiO2 05/05/17 16:13 98.3 84 18 169/91 98 Physical Exam Const: [id number], well-nourished. In no acute distress. Head: Atraumatic, normocephalic Eyes: Normal Conjunctiva without injection. No purulent discharge. ENT: Normal external ear, nose. Moist oropharynx without tonsillar exudates. Non -erythematous pharynx. Uvula midline. No drooling. No trismus. Neck: No cervical midline tenderness. Full range of motion. No meningismus. No cervical lymphadenopathy. No JVD. Resp: Clear to auscultation bilaterally. No wheezing, rhonchi, rales, or crackles. No accessory muscle use. No retractions. Cardio: Regular rate and rhythm. No murmurs, rubs or gallops. Abd: Soft, umbilical pain, non distended. Normal bowel sounds. No palpable masses. No rebound tenderness. No guarding. Negative McBurney's point. Negative psoas sign. Negative obturator sign. : Uncircumcised penis. No paraphimosis. No phimosis. No hernias. Edema noted of the left testicle. No erythema or warmth to touch. Skin: No petechiae or rashes. 2 cm indurated circular cystlike lesion noted on the right lateral aspect of patient's chest with no surrounding erythema or edema. Slight spontaneous purulent discharge was expelled from the site. No bleeding noted. Back: No midline tenderness. No CVA tenderness. Ext: No cyanosis, or edema. Neur: Awake and alert. Normal gait. Normal coordination. Psych: Normal Mood and Affect Result Diagram: 05/05/17 1700 05/05/17 1700 Results 24 hrs Laboratory Tests Test 05/05/17 17:00 White Blood Count 9.310^3/ul Red Blood Count 5.2610^6/ul Hemoglobin 16.3g/dl Hematocrit 48.3% Mean Corpuscular Volume 91.8fl Mean Corpuscular Hemoglobin 31.0pg Mean Corpuscular Hemoglobin Concent 33.7g/dl Red Cell Distribution Width 13.1% Platelet Count 60053^3/UL Mean Platelet Volume 9.5fl Neutrophils % 61.1% Lymphocytes % 28.6% Monocytes % 9.7% Eosinophils % 0.0% Basophils % 0.2% Nucleated Red Blood Cells % 0.0/100WBC Neutrophils # (Manual) 5.710^3/ul Lymphocytes # 2.710^3/ul Monocytes # 0.910^3/ul Eosinophils # 0.010^3/ul Basophils # 0.010^3/ul Nucleated Red Blood Cells # 0.010^3/ul Urine Color JOSEPH Urine Clarity CLOUDY Urine pH 6.0 Urine Specific [place] 1.019 Urine Ketones NEGATIVEmg/dL Urine Nitrite NEGATIVEmg/dL Urine Bilirubin NEGATIVEmg/dL Urine Urobilinogen 1+mg/dL Urine Leukocyte Esterase NEGATIVELeu/ul Urine Microscopic RBC 0/HPF Urine Microscopic WBC 0/HPF Urine Hemoglobin NEGATIVEmg/dL Urine Glucose NEGATIVEmg/dL Urine Total Protein NEGATIVEmg/dl Sodium Level 143mmol/L Potassium Level 3.8mmol/L Chloride Level 101mmol/L Carbon Dioxide Level 30mmol/L Anion Gap 16 Blood Urea Nitrogen 9mg/dl Creatinine 0.65mg/dl Glucose Level 78mg/dl Calcium Level 9.4mg/dl Total Bilirubin 0.3mg/dl Direct Bilirubin 0.00mg/dl Indirect Bilirubin 0.3mg/dl Aspartate Amino Transf (AST/SGOT) 37IU/L Alanine Aminotransferase (ALT/SGPT) 62IU/L Alkaline Phosphatase 91IU/L Total Protein 8.3g/dl Albumin 4.4g/dl Globulin 3.90g/dl Albumin/Globulin Ratio 1.12 Lipase 75U/L Current Medications Medications (Trade) Dose Ordered Sig/Yuki Route PRN Reason Start Time Stop Time Status Last Admin Dose Admin Sodium Chloride (NS) 1,000 ml @ 1,000 mls/hr Q1H STAT IV 05/05/17 16:47 05/05/17 17:46 DC 05/05/17 17:06 Ondansetron HCl (Zofran Inj) 4 mg ONCE STAT IV 05/05/17 16:47 05/05/17 16:53 DC 05/05/17 17:07 Hydromorphone HCl (Dilaudid) 1 mg ONCE STAT IV 05/05/17 16:47 05/05/17 16:53 DC 05/05/17 17:07 IV Flush 10 ml 10 ml STK-MED ONCE .ROUTE 05/05/17 18:13 05/05/17 18:14 DC 05/05/17 18:34 Sodium Chloride (NS) 100 ml @ ud STK-MED ONCE .ROUTE 05/05/17 18:13 05/05/17 18:14 DC 05/05/17 18:34 Iohexol (Omnipaque 300mg/ ml) 150 ml STK-MED ONCE .ROUTE 05/05/17 18:13 05/05/17 18:14 DC 05/05/17 18:34 Acetaminophen/ Hydrocodone Bitart (Ponce (10/325)) 1 tab ONCE ONCE PO 05/05/17 20:00 05/05/17 20:01 DC 05/05/17 19:54 Procedures/MDM This is a 31-year-old male patient with a past medical history of umbilical hernia presents to the ED with same umbilical hernia pain as well as left testicular pain, and right cyst pain of the chest region. Patient is afebrile and nontoxic-appearing. Patient has normal vital signs. Patient was further worked up with CBC, CMP, lipase, UA, CT abdomen and pelvis with contrast, CXR, US soft tissue to evaluate lump lesion of right lateral chest, scrotal ultrasound. Patient's pain and symptoms have improved after treatment with 4 mg IV zofran, 1 mg IV dilaudid, 10-325 mg Ponce. CBC: No leukocytosis. No e/o of systemic infection. No e/o anemia. CMP: No e/o severe acidosis, alkalosis, renal failure, diabetic ketoacidosis, liver disease Lipase within normal limits. Urine: No leukocyte esterase, no nitrites, no hematuria. PROCEDURE: CT abdomen and pelvis with IV contrast CLINICAL INDICATION: Abdominal pain and testicular pain. TECHNIQUE: Axial images were obtained through the abdomen and pelvis after the IV administration of 100 cc Omnipaque 300 IV contrast. Coronal and sagittal reconstructions were obtained. Automated exposure control was utilized. DLP = 1610.4 mGy-cm. CTDiol= 23.8 mGy. One or more of the following post reduction techniques were used: - Automated exposure control. - Adjustment of the mA and/or Kv according to patient's size. - Use of iterative reconstruction technique COMPARISON: March 04, 2017 FINDINGS: The visualized lower lungs are clear. Heart size is within normal limits. The liver, gallbladder, pancreas, spleen and adrenals are unremarkable. The kidneys demonstrate a normal appearance. No obstructive uropathy is observed. The bladder is filled with a small to moderate amount of urine. The prostate and seminal vesicles are unremarkable. Air and stool are seen scattered within the colon. The appendix is normal. No dilated loops of small bowel are observed. The stomach and duodenum are unremarkable. No intra-abdominal or pelvic free fluid or fluid collections are observed. No intra-abdominal or pelvic lymphadenopathy is observed. The arterial vasculature demonstrates a normal appearance. The osseous structures appear intact. Mild degenerative changes are seen in the spine. Small, fat filled umbilical hernia is seen. IMPRESSION: No visualized acute intra-abdominal or pelvic process. Mild degenerative changes in the spine. Small, fat filled umbilical hernia. PROCEDURE: Chest x-ray CLINICAL INDICATION: Shortness of breath TECHNIQUE: Chest single view COMPARISON: None FINDINGS: The heart is normal in size. The pulmonary vessels are normal in caliber. The lungs are clear. The costophrenic angles are sharp. The visualized bony thorax is unremarkable. IMPRESSION: No acute cardiopulmonary disease. PROCEDURE: US Chest Right CLINICAL INDICATION: Right lateral lump TECHNIQUE: Images taken during real time interrogation of the area palpability within the right lateral chest COMPARISON: None FINDINGS: A complex cystic mass measuring 1.4 x 1.3 x 1.2 cm is seen adjacent to a right lateral rib. The wall appears slightly nodular with a 1.8 mm nodular projection extending into the lumen. There is mild peripheral hypervascularity. There is increased through transmission. IMPRESSION: At the site of palpability, there is a complex largely cystic lesion mass adjacent to a rib with internal debris and peripheral nodularity and vascularity measuring 1.4 x 1.3 x 1.2 cm PROCEDURE: US Scrotal CLINICAL INDICATION: Left testicular pain TECHNIQUE: Images were taken during real time interrogation of the scrotum. Color Doppler was also performed. COMPARISON: 03/03/2017 FINDINGS: Right Testicle: Is normal in size measuring 4.0 x 2.7 x 2.3 cm No mass is identified. The echotexture is normal. There is normal vascular flow on color Doppler. There is no hydrocele. No varicocele is evident. Left testicle: Is slightly smaller in size measuring 3.0 x 2.9 x 1.9 cm A 1.3 mm echogenic focus is again seen within the left testicle. No other lesion is evident. There is normal vascular flow on color Doppler. There is no hydrocele. No varicocele is identified. Right Epidydemus: Appears normal. Left Epedidymus: A 1.2 mm cyst is seen within the left epididymal head. IMPRESSION: 1. The testicles are within normal range in size of the left testicle is somewhat smaller than the right. There is again a 1.3 mm echogenic focus within the medial left testicle, which mammogram the present a calcification. No intratesticular mass is evident. Arterial flow is again demonstrated in each testicle. 2. No significant hydrocele is presently identified. 3. A 1.2 mm cyst is now seen within the left epididymal head. Epididymal cyst noted of left testicle could be cause of edema and pain. No testicular torsion. Small umbilical hernia still seen with no signs of incarceration, strangulation. It is reproducible. Low suspicion for gastritis , GERD, peptic ulcer disease, cholecystitis, choledocholithiasis, cholangitis, pancreatitis, appendicitis, bowel obstruction, ileus, volvulus, nephrolithiasis , pyelonephritis, hepatitis, perforated viscus, diverticulitis, abdominal hernia , acute abdomen, mesenteric ischemia or other emergent conditions. Patient also has a infected sebaceous cyst. No indication for incision and drainage at this time as it is very indurated. Wound check in 2 days for further evaluation and treatment. Appropriate for outpatient antibiotics. Low suspicion for scabies, SJS/TEN, erythema multiforme, sepsis, cellulitis, necrotizing fascitis, gangrene, meningococcemia or other emergent conditions. Discharge medications: Bactrim ,Keflex, Ibuprofen Follow up with primary care physician in 1-2 days for referral to a urologist and Dr. Nicole. Instructed patient to return to the ED sooner for any worsening symptoms. Patient's questions were answered. Patient understood and agreed with discharge plan. Patient discharged stable. Departure Diagnosis: Primary Impression: Abdominal pain Abdominal location: periumbilical Qualified Code: R10.33 - Periumbilical abdominal pain Additional Impressions: Sebaceous cyst Testicular pain Condition: Stable Patient Instructions: Abdominal Pain, Hernia (Inguinal, Ventral, Umbilical), Sebaceous Cyst, Infected (Abx Tx), Testicular Pain, Unclear Cause Referrals: LYRIC NICOLE [facility] YOU HAVE RECEIVED A MEDICAL SCREENING EXAM AND THE RESULTS INDICATE THAT YOU DO NOT HAVE A CONDITION THAT REQUIRES URGENT TREATMENT IN THE EMERGENCY DEPARTMENT. FURTHER EVALUATION AND TREATMENT OF YOUR CONDITION CAN WAIT UNTIL YOU ARE SEEN IN YOUR DOCTORS OFFICE WITHIN THE NEXT 1-2 DAYS. IT IS YOUR RESPONSIBILITY TO MAKE AN APPOINTMENT FOR FOLOW-UP CARE. IF YOU HAVE A PRIMARY DOCTOR --you should call your primary doctor and schedule an appointment IF YOU DO NOT HAVE A PRIMARY DOCTOR YOU CAN CALL OUR PHYSICIAN REFERRAL HOTLINE AT IF YOU CAN NOT AFFORD TO SEE A PHYSICIAN YOU CAN CHOSE FROM THE FOLLOWING [facility] [address] [facility]. [facility] [address] [facility] [address] [facility]. [facility] [address] [facility]. [facility] [address] [facility]. [facility] [address] [facility] YOU HAVE RECEIVED A MEDICAL SCREENING EXAM AND THE RESULTS INDICATE THAT YOU DO NOT HAVE A CONDITION THAT REQUIRES URGENT TREATMENT IN THE EMERGENCY DEPARTMENT. FURTHER EVALUATION AND TREATMENT OF YOUR CONDITION CAN WAIT UNTIL YOU ARE SEEN IN YOUR DOCTORS OFFICE WITHIN THE NEXT 1-2 DAYS. IT IS YOUR RESPONSIBILITY TO MAKE AN APPOINTMENT FOR FOLOW-UP CARE. IF YOU HAVE A PRIMARY DOCTOR --you should call your primary doctor and schedule and appointment IF YOU DO NOT HAVE A PRIMARY DOCTOR YOU CAN CALL OUR PHYSICIAN REFERRAL HOTLINE AT . IF YOU CAN NOT AFFORD TO SEE A PHYSICIAN YOU CAN CHOSE FROM THE FOLLOWING [facility] INSTITUTIONS: [facility] [address] [place] [address] [facility] [address] [place], [place] [id number] [place] [address] [address] [place] [address] [facility] Additional Instructions: Follow up in 2 days in your clinic for wound check. Call your primary care doctor TOMORROW for an appointment during the next 2 days for a referral to see a urologist, general surgeon Dr. Nicole. See the doctor sooner or return here if your condition worsens before your appointment time - fever, worsening abdominal pain, vomiting, etc. CARMEN COOPER PA-C May 05, 2017 19:46
[2017-05-05] MEDS ORDERED: HYDROCODONE/APAP (10/325) TAB PO ONE (20:00)
== END 2017-05-05 20:06 | disposition home or self-care (01) ==
LOC: FTE 16:02
DX: R10.33 Periumbilical pain (principal); L72.3 Sebaceous cyst; N50.812 Left testicular pain; F17.210 Nicotine dependence, cigarettes, uncomplicated
CPT/HCPCS: 36415; 71010; 74177; 76536; 76870; 80053; 81001; 83690; 85025; 96374; 96375; J1170; J2405; J7030; Q9967; Z7502; Z7610

== ENCOUNTER 2017-05-12 19:22 | Emergency (ER) | payer OTHER ==
[~2017-05-12] VITALS: Ht 177.8 cm; Wt 148.0 kg
[~2017-05-12 19:22] MED LIST changes: +CEPH-443 PO; +HYDR-906 PO; +IBUP800T25 PO; +SULF1TAB31 PO
[2017-05-12 19:30] VITALS: Ht 177.8 cm; Wt 148.0 kg
[2017-05-12] MEDS ORDERED: morphine 4 MG/ML VIAL IV STA (19:56)
[2017-05-12] MEDS ORDERED: SOD CHLORIDE 0.9% 1,000 ML IV STA (19:56)
[2017-05-12] MEDS ORDERED: ONDANSETRON 4 MG INJ IV STA (19:56)
[2017-05-12 20:14] LABS: URINE BLOOD (Dip) POC Negative (NEGATIVE)
--- NOTE | 2017-05-12 20:14 | ERD ---
ER Documentation Chief Complaint Date/Time DATE: 05/12/17 TIME: 20:12 Chief Complaint INCREASED AP TODAY. RADIATING TO LT TESTICLE. HX UMB HERNIA. +N/V HPI 31-year-old male presents to emergency department for increased pain today. Patient has a history of umbilical hernia, was already seen by a a general surgeon, was told to come to the ER if the pain got worse. Patient states that the pain got worse. Patient described the pain as sharp pain, 8/10 scale, now has episodes of vomiting. Patient states any radiates from the umbilical area to the left testicular area. Patient denies any physical or swelling. Patient denies any trauma in the testicle. Patient denies any hematuria. Patient denies any constipation. Patient denies any fever or chills. Patient was seen here one week ago for the same problem. Patient took [place] at home with mild relief. ROS All systems reviewed and are negative except as per history of present illness. Medications Home Meds Active Scripts Sulfamethoxazole/Trimethoprim* (Bactrim Ds* Tablet) 1 Each Tablet, 1 TAB PO BID for 7 Days, #14 TAB Prov:CARMEN COOPER PA-C 05/05/17 Cephalexin* (Keflex*) 500 Mg Capsule, 500 MG PO QID for 7 Days, CAP Prov:CARMEN COOPER PA-C 05/05/17 Ibuprofen* (Motrin*) 800 Mg Tab, 800 MG PO Q6, #30 TAB take with food Prov:CARMEN COOPER PA-C 05/05/17 Hydrocodone/Acetaminophen ([place] 5-325 Tablet) 1 Each Tablet, 1 TAB PO Q6H Y for PAIN, #14 TAB Prov:CARMEN COOPER PA-C 05/05/17 Oxycodone HCl/Acetaminophen (Percocet 5-325 mg Tablet) 1 Each Tablet, 1 EACH PO Q6, #15 TAB Prov:VARUN HARRIS 03/04/17 Ibuprofen* (Motrin*) 600 Mg Tab, 600 MG PO Q6, #30 TAB Prov:VARUN HARRIS 03/04/17 Ondansetron (Ondansetron Odt) 4 Mg Tab.rapdis, 4 MG PO Q8 Y for NAUSEA AND/OR VOMITING, #30 TAB Prov:MARLON CUELLAR NP 12/26/16 Oxycodone HCl/Acetaminophen (Percocet 5-325 mg Tablet) 1 Each Tablet, 1 EACH PO Q6 for SEVERE PAIN LEVEL 7-10, #20 TAB Prov:MARLON CUELLAR LAUNDRY OPERATOR 12/26/16 Reported Medications Oxycodone Hcl/Acetaminophen (Percocet) 1 Tab Tab, 1 TAB PO Q6NARC Y 05/20/13 Acetaminophen/Hydrocodone (Vicodin) 1 Tab Tab, 1 TAB PO BID 06/11/11 Allergies Allergies: Coded Allergies: No Known Allergy (Verified , 05/12/17) NKA PER SDS PRE-OP ORDER SHEET 06/11/11 PMhx/Soc History of Surgery: Yes (left knee surgery) Anesthesia Reaction: No Hx Neurological Disorder: No Hx Respiratory Disorders: No Hx Cardiac Disorders: No Hx Psychiatric Problems: No Hx Miscellaneous Medical Probl: Yes (hernia) Hx Alcohol Use: No Hx Substance Use: No Hx Tobacco Use: Yes FmHx Family History: No coronary disease, No diabetes, No other Physical Exam Vitals Vital Signs Date Time Temp Pulse Resp B/P Pulse Ox O2 Delivery O2 Flow Rate FiO2 05/12/17 19:30 98.4 89 22 139/91 99 Physical Exam GENERAL: The patient is well developed and appropriate for usual state of health, in no apparent distress. CHEST: Clear to auscultation bilaterally. There are no rales, wheezes or rhonchi. HEART: Regular rate and rhythm. No murmurs, clicks, rubs or gallops. No S3 or S4. ABDOMEN: Soft, tenderness on palpation of periumbilical area. Good bowel sounds. No rebound or guarding. No gross peritonitis. No gross organomegaly or masses. No Alvarez sign or McBurney point tenderness. BACK: No midline or flank tenderness. EXTREMITIES: Equal pulses bilaterally. There is no peripheral clubbing, cyanosis or edema. No focal swelling or erythema. Full range of motion. Grossly neurovascularly intact. NEURO: Alert and oriented. Cranial nerves 2-12 intact. Motor strength in all 4 extremities with 5/5 strength. Sensation grossly intact. Normal speech and gait. SKIN: There is no apparent rash or petechia. The skin is warm and dry. HEMATOLOGIC AND LYMPHATIC: There is no evidence of excessive bruising or lymphedema. No gross cervical, axillary, or inguinal lymphadenopathy. : No scrotal swelling or redness noted, mild tenderness on palpation on the left testicular area, no pedal discharge. Result Diagram: 05/12/17211005/12/172110 Results 24 hrs Laboratory Tests Test 05/12/17 20:20 05/12/17 20:25 05/12/17 21:11 Bedside Urine pH (LAB) 5.5 Bedside Urine Protein (LAB) Trace Bedside Urine Glucose (UA) Negative Bedside Urine Ketones (LAB) Negative Bedside Urine Blood Negative Bedside Urine Nitrite (LAB) Negative Bedside Urine Leukocyte Esterase (L Negative Urine Color YELLOW Urine Clarity CLEAR Urine pH 5.0 Urine Specific [place] 1.026 Urine Ketones NEGATIVEmg/dL Urine Nitrite NEGATIVEmg/dL Urine Bilirubin NEGATIVEmg/dL Urine Urobilinogen 1+mg/dL Urine Leukocyte Esterase TRACELeu/ul Urine Microscopic RBC 0/HPF Urine Microscopic WBC 4/HPF Urine Hemoglobin NEGATIVEmg/dL Urine Glucose NEGATIVEmg/dL Urine Total Protein NEGATIVEmg/dl White Blood Count 10.210^3/ul Red Blood Count 5.1910^6/ul Hemoglobin 16.2g/dl Hematocrit 47.5% Mean Corpuscular Volume 91.5fl Mean Corpuscular Hemoglobin 31.2pg Mean Corpuscular Hemoglobin Concent 34.1g/dl Red Cell Distribution Width 12.8% Platelet Count 56612^3/UL Mean Platelet Volume 9.5fl Neutrophils % 60.8% Lymphocytes % 29.7% Monocytes % 8.8% Eosinophils % 0.0% Basophils % 0.2% Nucleated Red Blood Cells % 0.0/100WBC Neutrophils # (Manual) 610^3/ul Lymphocytes # 3.010^3/ul Monocytes # 0.910^3/ul Eosinophils # 0.010^3/ul Basophils # 0.010^3/ul Nucleated Red Blood Cells # 0.010^3/ul Sodium Level 140mmol/L Potassium Level 3.9mmol/L Chloride Level 102mmol/L Carbon Dioxide Level 29mmol/L Anion Gap 13 Blood Urea Nitrogen 12mg/dl Creatinine 0.69mg/dl Glucose Level 94mg/dl Calcium Level 9.4mg/dl Total Bilirubin 0.2mg/dl Direct Bilirubin 0.00mg/dl Indirect Bilirubin 0.2mg/dl Aspartate Amino Transf (AST/SGOT) 44IU/L Alanine Aminotransferase (ALT/SGPT) 78IU/L Alkaline Phosphatase 95IU/L Total Protein 8.2g/dl Albumin 4.4g/dl Globulin 3.80g/dl Albumin/Globulin Ratio 1.15 Lipase 84U/L Current Medications Medications (Trade) Dose Ordered Sig/Yuki Route PRN Reason Start Time Stop Time Status Last Admin Dose Admin Sodium Chloride (NS) 1,000 ml @ 1,000 mls/hr Q1H STAT IV 05/12/17 19:56 05/12/17 20:55 DC 05/12/17 21:23 Morphine Sulfate (morphine) 4 mg ONCE STAT IV 05/12/17 19:56 05/12/17 19:58 DC 05/12/17 21:23 Ondansetron HCl (Zofran Inj) 4 mg ONCE STAT IV 05/12/17 19:56 05/12/17 19:58 DC 05/12/17 21:22 IV Flush 10 ml 10 ml STK-MED ONCE .ROUTE 05/12/17 22:08 05/12/17 22:09 DC 05/12/17 23:03 Sodium Chloride (NS) 100 ml @ ud STK-MED ONCE .ROUTE 05/12/17 22:08 05/12/17 22:09 DC 05/12/17 23:03 Iohexol (Omnipaque 300mg/ ml) 150 ml STK-MED ONCE .ROUTE 05/12/17 22:08 05/12/17 22:09 DC 05/12/17 23:03 Patient was given medication for pain here in emergency department, after treatment, patient verbalized feeling much better. Patient's pain is improved.Patient was given Zofran here in the emergency department. After treatment, patient was able to tolerate po fluids here in the emergency department without any vomiting. There is no signs and symptoms of dehydration. Normal saline IV bolus was given here in emergency department for rehydration, patient tolerated IV fluids. PROCEDURE: SCROTAL ULTRASOUND: CLINICAL INDICATION: 31 years of age, male. Left testicular pain that is increasing . COMPARISON: Scrotal ultrasound March 03, 2017 TECHNIQUE: Multiple transverse and sagittal aguilar scale, color, and spectral Doppler sonographic images of the scrotum were obtained. FINDINGS: Right scrotum: Testis measurements: 2.2 x 2.8 x 3.9 cm (Vol 12.6 mL). Testis appearance: Normal. No intratesticular masses. Color and spectral Doppler tracings: Normal. Epididymis: Normal. Other: No hydrocele or varicocele. Left scrotum: Testis measurements: 3.6 x 2.7 x 2.6 cm (Vol 17.5 mL). Testis appearance: Calcified microlith. Otherwise normal. Color and spectral Doppler tracings: Normal. Epididymis: Normal. Other: Varicocele. There are enlarged veins in the left scrotal sac measuring up to 3 mm with increased flow with the Valsalva maneuver. IMPRESSION: Left varicocele. This is a potential cause for left testicular pain. Solitary microlith left testicle. Testicular microlithiasis may be a normal incidental finding particularly when limited to one microlith but may be associated with an increased risk for neoplasm in patients with risk factors. Recommend annual clinical exam. Negative for evidence of testicular torsion. RPTAT: HCTS Physician Elinor Date Time Electronically viewed and signed by Richardson Easton Physician on 05/12/2017 23: 05 CS/ CC: MARLON CUELLAR NP PROCEDURE: CT ABDOMEN AND PELVIS WITH CONTRAST: CLINICAL INDICATION: 31 years of age, male, abdominal pain, left groin pain and umbilical hernia. COMPARISON: CT May 05, 2017 TECHNIQUE: CT of the abdomen, and pelvis was performed following administration of 125 mL IV Omnipaque-300. Oral contrast was not administered prior to the examination. Coronal and sagittal reformatted images were obtained from the axial source images. Images were reviewed on a high-resolution PACS workstation. Dose information: Based on a 32 cm phantom, the estimated radiation dose (CTDI vol mGy for each series in this exam is 23.8. The estimated cumulative dose ( DLP mGy-cm) is 1683. FINDINGS: LUNG BASES: Normal. ABDOMEN/PELVIS: Liver: Normal. Portal veins, splenic vein and SMV are patent. Hepatic veins are patent. Gallbladder: Normal. Bile ducts: No intrahepatic or extrahepatic biliary duct dilatation. Spleen: Normal. Pancreas: Normal. Adrenal glands: Normal. Kidneys and ureters: Normal. Aorta and IVC: Patent. Lymph nodes: Prominent bilateral inguinal lymph nodes have fatty josette and are likely reactive. Gastrointestinal tract: There are a few scattered sigmoid colon diverticula without diverticulitis. Bowel loops are decompressed. Appendix: Normal Bladder: Normal. Pelvic Organs: Normal. Peritoneal cavity: No free fluid or free intraperitoneal air. Abdominal wall: Small fat containing umbilical hernia. BONES: Musculoskeletal: Mild degenerative changes in spine No suspicious bone lesions. IMPRESSION: Negative for evidence of an acute abnormality. Cause for abdominal pain and groin pain is not evident. RPTAT: HCTS Procedures/MDM Medical Decision Making: Patient's symptoms of pain nonspecific at this time, can be from the left varicocele on the left testicular area. The visualized umbilical hernia cannot be seen anymore in the CT scan. No symptoms of any incarceration. There is low suspicion for abdominal emergencies at this time. Patients abdominal exam is normal at this time. Patients radiology exam does not show any abdominal emergencies at this time. There is low suspicion for appendicitis, cholecystitis, abdominal aortic aneurysms or peritonitis at this time. There is low suspicion for sepsis. Patient appears well and is hemodynamically stable. No testicular torsion noted. Nose is of any acute infection. No leukocytosis, no bandemia, not febrile. Disposition: Home. Condition: Stable Prescription Percocet, Colace, MiraLAX. Instructions: Patient is advised to take medications as prescribed. Patient is advised to rest, increase fluid intake and do brat diet for next 1-2 days and progress as tolerated. Patient is advised that if symptoms are worse, severe abdominal pain, uncontrolled vomiting, high fever, severe flank pain, worst signs and symptoms, to return to the emergency department immediately. Otherwise, patient can follow up with primary care doctor in 5-7 days. Advised to see urology specialist at the left varicocele. Departure Diagnosis: Primary Impression: Abdominal pain Abdominal location: periumbilical Qualified Code: R10.33 - Periumbilical abdominal pain Additional Impression: Left varicocele Condition: Stable Patient Instructions: Abdominal Pain, Varicocele Additional Instructions: Patient is advised to take medications as prescribed. Patient is advised to rest , increase fluid intake and do brat diet for next 1-2 days and progress as tolerated. Patient is advised that if symptoms are worse, severe abdominal pain , uncontrolled vomiting, high fever, severe flank pain, worst signs and symptoms , to return to the emergency department immediately. Otherwise, patient can follow up with primary care doctor in 5-7 days. See urology specialist. MARLON CUELLAR NP May 12, 2017 20:14
[2017-05-12 21:34] LABS: WHITE BLOOD COUNT 10.2 10^3/ul (4.8-10.8)
[2017-05-12 21:35] LABS: BASOPHILS % 0.2 % (0.0-2.0); HEMATOCRIT 47.5 % (42.0-52.0); HEMOGLOBIN 16.2 g/dl (14.0-18.0); LYMPHOCYTES % 29.7 % (15.0-51.0); MEAN CORPUSCULAR HEMOGLOBIN 31.2 pg (29.0-33.0); MEAN CORPUSCULAR HGB CONC 34.1 g/dl (32.0-37.0); MEAN CORPUSCULAR VOLUME 91.5 fl (82.0-101.0); MEAN PLATELET VOLUME 9.5 fl (7.4-10.4); MONOCYTE # 0.9 10^3/ul (0.3-0.9); MONOCYTES % 8.8 % (0.0-11.0); NEUTROPHILS % 60.8 % (39.0-77.0); PLATELET COUNT 284 10^3/UL (140-415); RED BLOOD COUNT 5.19 10^6/ul (4.70-6.10); RED CELL DISTRIBUTION WIDTH 12.8 % (11.5-14.5)
[2017-05-12 21:44] LABS: ADD UMIC YES; UR ASCORBIC ACID NEGATIVE (NEGATIVE); UR BILIRUBIN (Dip) NEGATIVE (NEGATIVE); UR BLOOD (Dip) NEGATIVE (NEGATIVE); UR CLARITY CLEAR (CLEAR); UR COLOR YELLOW (YELLOW); UR GLUCOSE (Dip) NEGATIVE (NEGATIVE); UR KETONES (Dip) NEGATIVE (NEGATIVE); UR LEUKOCYTE ESTERASE (Dip) TRACE Leu/ul (NEGATIVE); UR NITRITE (Dip) NEGATIVE (NEGATIVE); UR RBC 0 /HPF (0-5); UR SPECIFIC GRAVITY (Dip) 1.026 (1.003-1.030); UR TOTAL PROTEIN (Dip) NEGATIVE (NEGATIVE); UR UROBILINOGEN (Dip) 1+ mg/dL (NEGATIVE)
[2017-05-12] MEDS ORDERED: SOD CHLORIDE 0.9% 100 ML ONE (22:08)
[2017-05-12] MEDS ORDERED: IOHEXOL 300MG/ML 150 ML BTL ONE (22:08)
[2017-05-12 22:25] LABS: ALBUMIN 4.4 g/dl (3.3-4.9); ALBUMIN/GLOBULIN RATIO 1.15; BILIRUBIN,INDIRECT 0.2 mg/dl (0-1.1); BILIRUBIN,TOTAL 0.2 mg/dl (0.2-1.3); CALCIUM 9.4 mg/dl (8.4-10.2); CREATININE 0.69 mg/dl (0.61-1.24); POTASSIUM 3.9 mmol/L (3.5-5.1); TOTAL PROTEIN 8.2 g/dl (6.1-8.1)
--- NOTE | 2017-05-12 23:06 | RADRPT ---
PROCEDURE: SCROTAL ULTRASOUND: CLINICAL INDICATION: 31 years of age, male. Left testicular pain that is increasing . COMPARISON: Scrotal ultrasound March 03, 2017 TECHNIQUE: Multiple transverse and sagittal aguilar scale, color, and spectral Doppler sonographic imag es of the scrotum were obtained. FINDINGS: Right scrotum: Testis measurements: 2.2 x 2.8 x 3.9 cm (Vol 12.6 mL). Testis appearance: Normal. No intratesticular masses. Color and spectral Doppler tracings: Normal. Epididymis: Normal. Other: No hydrocele or varicocele. Left scrotum: Testis measurements: 3.6 x 2.7 x 2.6 cm (Vol 17.5 mL). Testis appearance: Calcified microlith. Otherwise normal. Color and spectral Doppler tracings: Normal. Epididymis: Normal. Other: Varicocele. There are enlarged veins in the left scrotal sac measuring up to 3 mm with incre ased flow with the Valsalva maneuver. IMPRESSION: Left varicocele. This is a potential cause for left testicular pain. Solitary microlith left testicle. Testicular microlithiasis may be a normal incidental finding parti cularly when limited to one microlith but may be associated with an increased risk for neoplasm in p atients with risk factors. Recommend annual clinical exam. Negative for evidence of testicular torsion. RPTAT: HCTS Physician Elinor Date Time Electronically viewed and signed by Physician Elinor on 05/12/2017 23:05 /
--- NOTE | 2017-05-12 23:46 | RADRPT ---
AMENDMENT: 05/24/2017 10:29:59 PM Sasha Easton M.D One or more of the following dose reduction techniques were used: - Automated exposure control. - Adjustment of the mA and/or kV according to patient size. - Use of iterative reconstruction technique. PROCEDURE: CT ABDOMEN AND PELVIS WITH CONTRAST: CLINICAL INDICATION: 31 years of age, male, abdominal pain, left groin pain and umbilical hernia. COMPARISON: CT May 05, 2017 TECHNIQUE: CT of the abdomen, and pelvis was performed following administration of 125 mL IV Omni paque-300. Oral contrast was not administered prior to the examination. Coronal and sagittal reformatted images were obtained from the axial source images. Images were revi ewed on a high-resolution PACS workstation. Dose information: Based on a 32 cm phantom, the estimated radiation dose (CTDI vol mGy for each seri es in this exam is 23.8. The estimated cumulative dose (DLP mGy-cm) is 1683. FINDINGS: LUNG BASES: Normal. ABDOMEN/PELVIS: Liver: Normal. Portal veins, splenic vein and SMV are patent. Hepatic veins are patent. Gallbladder: Normal. Bile ducts: No intrahepatic or extrahepatic biliary duct dilatation. Spleen: Normal. Pancreas: Normal. Adrenal glands: Normal. Kidneys and ureters: Normal. Aorta and IVC: Patent. Lymph nodes: Prominent bilateral inguinal lymph nodes have fatty josette and are likely reactive. Gastrointestinal tract: There are a few scattered sigmoid colon diverticula without diverticulitis. Bowel loops are decompressed. Appendix: Normal Bladder: Normal. Pelvic Organs: Normal. Peritoneal cavity: No free fluid or free intraperitoneal air. Abdominal wall: Small fat containing umbilical hernia. BONES: Musculoskeletal: Mild degenerative changes in spine No suspicious bone lesions. IMPRESSION: Negative for evidence of an acute abnormality. Cause for abdominal pain and groin pain is not evide nt. RPTAT: HCTS Physician Elinor Date Time Electronically viewed and signed by Physician Elinor on 05/24/2017 22:31 CS/
[2017-05-12] MEDS ORDERED: DOCU-144 PO (23:57)
[2017-05-12] MEDS ORDERED: POLY17PO6 PO (23:57)
[2017-05-12] MEDS ORDERED: OXYC-209 PO (23:57)
[2017-05-13 00:15] VITALS: BP 135/85; PULSE 87; RESP 22
== END 2017-05-13 00:20 | disposition home or self-care (01) ==
LOC: FTE 19:22
DX: R10.33 Periumbilical pain (principal); I86.1 Scrotal varices; R11.10 Vomiting, unspecified; Z87.891 Personal history of nicotine dependence
CPT/HCPCS: 36415; 74177; 76870; 80053; 81001; 83690; 85025; 96374; 96375; J2270; J2405; J7030; Q9967; Z7502; Z7610; 81003

== ENCOUNTER 2017-06-09 20:26 | Emergency (ER) | payer OTHER ==
[~2017-06-09] VITALS: Ht 165.1 cm; Wt 148.5 kg
[~2017-06-09 20:26] MED LIST changes: +DOCU-144 PO; +OXYC-209 PO; +POLY17PO6 PO
[2017-06-09 20:28] VITALS: Ht 165.1 cm; Wt 148.5 kg
--- NOTE | 2017-06-09 22:38 | ERD ---
ER Documentation Chief Complaint Date/Time DATE: 06/09/17 TIME: 22:30 Chief Complaint chest pain since 2 hours ago, swelling both legs x 4 days HPI 31-year-old male presents to emergency department for complaints of chest pain that started experiencing today. Patient described the pain as sharp pain, 6/10 scale, not better or worse with anything. Patient also has lower leg swelling for the last 4 days. Patient states that he had a history of blood clot before. Patient denies any dysuria and exertion or dyspnea on lying down. Patient denies any dizziness. Patient denies any numbness or tingling. ROS All systems reviewed and are negative except as per history of present illness. Medications Home Meds Active Scripts Docusate Sodium* (Colace*) 100 Mg Capsule, 100 MG PO TID, #30 CAP Prov:MARLON CUELLAR NP 05/12/17 Polyethylene Glycol* (Miralax*) 17 Gm Powd.pack, 17 GM PO DAILY, #7 Prov:MARLON CUELLAR NP 05/12/17 Oxycodone HCl/Acetaminophen (Percocet 10-325 mg Tablet) 1 Each Tablet, 1 EACH PO Q6, #5 TAB Prov:MARLON CUELLAR NP 05/12/17 Sulfamethoxazole/Trimethoprim* (Bactrim Ds* Tablet) 1 Each Tablet, 1 TAB PO BID for 7 Days, #14 TAB Prov:CARMEN COOPER PA-C 05/05/17 Cephalexin* (Keflex*) 500 Mg Capsule, 500 MG PO QID for 7 Days, CAP Prov:CARMEN COOPER PA-C 05/05/17 Ibuprofen* (Motrin*) 800 Mg Tab, 800 MG PO Q6, #30 TAB take with food Prov:CARMEN COOPER PA-C 05/05/17 Hydrocodone/Acetaminophen ([place]on 5-325 Tablet) 1 Each Tablet, 1 TAB PO Q6H Y for PAIN, #14 TAB Prov:CARMEN COOPER PA-C 05/05/17 Oxycodone HCl/Acetaminophen (Percocet 5-325 mg Tablet) 1 Each Tablet, 1 EACH PO Q6, #15 TAB Prov:VARUN HARRIS 03/04/17 Ibuprofen* (Motrin*) 600 Mg Tab, 600 MG PO Q6, #30 TAB Prov:KIMBERLYFELICITYVARUN C 03/04/17 Ondansetron (Ondansetron Odt) 4 Mg Tab.rapdis, 4 MG PO Q8 Y for NAUSEA AND/OR VOMITING, #30 TAB Prov:MARLON CUELLAR NP 12/26/16 Oxycodone HCl/Acetaminophen (Percocet 5-325 mg Tablet) 1 Each Tablet, 1 EACH PO Q6 for SEVERE PAIN LEVEL 7-10, #20 TAB Prov:MARLON CUELLAR NP 12/26/16 Reported Medications Oxycodone Hcl/Acetaminophen (Percocet) 1 Tab Tab, 1 TAB PO Q6NARC Y 05/20/13 Acetaminophen/Hydrocodone (Vicodin) 1 Tab Tab, 1 TAB PO BID 06/11/11 Allergies Allergies: Coded Allergies: No Known Allergy (Verified , 06/09/17) NKA PER SDS PRE-OP ORDER SHEET 06/11/11 PMhx/Soc History of Surgery: Yes (Left Knee Surg,R Shoulder Surg) Anesthesia Reaction: No Hx Neurological Disorder: No Hx Respiratory Disorders: No Hx Cardiac Disorders: No Hx Psychiatric Problems: No Hx Miscellaneous Medical Probl: Yes (Maria C-umbilical Hernia) Hx Alcohol Use: No Hx Substance Use: No Hx Tobacco Use: Yes Smoking Status: Current every day smoker FmHx Family History: No coronary disease, No diabetes, No other Physical Exam Vitals Vital Signs Date Time Temp Pulse Resp B/P Pulse Ox O2 Delivery O2 Flow Rate FiO2 06/09/17 20:28 97.8 86 20 147/91 99 Physical Exam GENERAL: The patient is well developed and appropriate for usual state of health, in no apparent distress. CHEST: Clear to auscultation bilaterally. There are no rales, wheezes or rhonchi. HEART: Regular rate and rhythm. No murmurs, clicks, rubs or gallops. No S3 or S4. ABDOMEN: Soft, nontender and nondistended. Good bowel sounds. No rebound or guarding. No gross peritonitis. No gross organomegaly or masses. No Alvarez sign or McBurney point tenderness. BACK: No midline or flank tenderness. EXTREMITIES: bilateral lower leg swelling, no pitting edema noted. No Homans sign noted. Equal pulses bilaterally. Full range of motion. Grossly neurovascularly intact. NEURO: Alert and oriented. Cranial nerves 2-12 intact. Motor strength in all 4 extremities with 5/5 strength. Sensation grossly intact. Normal speech and gait. SKIN: There is no apparent rash or petechia. The skin is warm and dry. HEMATOLOGIC AND LYMPHATIC: There is no evidence of excessive bruising or lymphedema. No gross cervical, axillary, or inguinal lymphadenopathy. Result Diagram: 06/09/17223706/09/172233 Results 24 hrs Laboratory Tests Test 06/09/17 22:34 06/09/17 22:38 Sodium Level 142mmol/L Potassium Level 3.9mmol/L Chloride Level 104mmol/L Carbon Dioxide Level 29mmol/L Anion Gap 13 Blood Urea Nitrogen 9mg/dl Creatinine 0.65mg/dl Glucose Level 86mg/dl Calcium Level 9.1mg/dl Total Bilirubin 0.1mg/dl Direct Bilirubin 0.00mg/dl Indirect Bilirubin 0.1mg/dl Aspartate Amino Transf (AST/SGOT) 32IU/L Alanine Aminotransferase (ALT/SGPT) 61IU/L Alkaline Phosphatase 88IU/L Troponin I < 0.012ng/ml B-Type Natriuretic Peptide 41PG/ML Total Protein 7.9g/dl Albumin 4.2g/dl Globulin 3.70g/dl Albumin/Globulin Ratio 1.13 White Blood Count 10.210^3/ul Red Blood Count 5.0410^6/ul Hemoglobin 15.7g/dl Hematocrit 46.9% Mean Corpuscular Volume 93.1fl Mean Corpuscular Hemoglobin 31.2pg Mean Corpuscular Hemoglobin Concent 33.5g/dl Red Cell Distribution Width 12.7% Platelet Count 22911^3/UL Mean Platelet Volume 9.5fl Neutrophils % 56.3% Lymphocytes % 34.1% Monocytes % 8.9% Eosinophils % 0.0% Basophils % 0.2% Nucleated Red Blood Cells % 0.0/100WBC Neutrophils # 5.710^3/ul Lymphocytes # 3.510^3/ul Monocytes # 0.910^3/ul Eosinophils # 0.010^3/ul Basophils # 0.010^3/ul Nucleated Red Blood Cells # 0.010^3/ul D-Dimer 220.00ng/ml D-Dimer Comment Current Medications Medications (Trade) Dose Ordered Sig/Yuki Route PRN Reason Start Time Stop Time Status Last Admin Dose Admin Tramadol HCl (Ultram) 50 mg ONCE ONCE PO 06/10/17 00:00 06/10/17 00:01 DC 06/09/17 23:55 EKG was done, read by me and is normal sinus rhythm at a rate of 84, normal axis , there is no ST changes or changes in the EKG that indicates any cardiac emergencies at this time. Patient's EKG was also reviewed by . Impression: no acute findings on EKG PROCEDURE: US bilateral lower extremity venous Doppler CLINICAL INDICATION: Bilateral swelling TECHNIQUE: Multiple sonographic images of the bilateral lower extremity deep venous system was obtained utilizing grayscale, color-flow, compressive sonography and Doppler imaging with augmentation. COMPARISON: There are no similar studies submitted for comparison. FINDINGS: There is normal compressibility and flow within the left common femoral, superficial femoral, popliteal, and calf veins. There is normal compressibility and flow within the right common femoral, superficial femoral, popliteal, and calf veins. IMPRESSION: No evidence of DVT within the lower extremities. RPTAT: HIKT .Mj Peña MD, MD Date Time Electronically viewed and signed by .Mj Peña MD, on 06/10/2017 00:01 .T/ CC: MARLON CUELLAR REGISTERED OCCUPATIONAL THERAPIST PROCEDURE: CHEST - 1 VIEW CLINICAL INDICATION: 31-year-old male with chest pain. TECHNIQUE: A single frontal AP upright portable view of the chest was performed. The images were reviewed on a PACS workstation. COMPARISON: None. FINDINGS: The cardiomediastinal silhouette has a normal appearance. There is no evidence for an infiltrate. The pulmonary vascularity is within normal limits. There is no evidence for pneumothorax or pneumomediastinum. The osseous structures are intact. IMPRESSION: No evidence for active cardiopulmonary disease. .Yaniv Mata MD, Date Time Electronically viewed and signed by .Yaniv Mata MD, on 06/10/2017 00:22 .M/ CC: MARLON CUELLAR NP Procedures/MDM Medical Decision Making: Pt symptoms of chest pain nonspecific at this time, can be musculoskeletal pain. Patient's leg swelling most active consistent with dependent edema. Patient has been seen in the emergency department multiple times, has been demanding pain medications, can have actively drug- seeking behavior.There is low suspicion for cardiopulmonary emergencies at this time. Patient has low risk factors. EKG is normal, there is no changes in the EKG that indicates cardiac emergencies. Chest X-ray does not show cardiopulmonary emergencies at this time. There is low suspicion for aortic aneurysm, myocardial infarction, pneumothorax, pleural effusion, pulmonary embolism, or any other cardiopulmonary emergencies at this time. Cardiac markers are normal. D dimer is negative, no DVT noted ultrasound does not show any DVT. No suspicion for pulmonary embolism.BNP is negative, no suspicion for CHF. patient was given for tramadol, is advised to follow-up with her doctor in 2 days for reevaluation of symptoms.Patient is advised to return to emergency department for any worsening symptoms. Dispostion: Home. Stable Disclaimer: Inadvertent spelling and grammatical errors are likely due to EHR/ dictation software use and do not reflect on the overall quality of patient care. Also, please note that the electronic time recorded on this note does not necessarily reflect the actual time of the patient encounter. Departure Diagnosis: Primary Impression: Atypical chest pain Additional Impression: Leg swelling Condition: Stable MARLON CUELLAR NP Jun 09, 2017 22:38
[2017-06-09 23:03] LABS: BASOPHILS % 0.2 % (0.0-2.0); HEMATOCRIT 46.9 % (42.0-52.0); HEMOGLOBIN 15.7 g/dl (14.0-18.0); LYMPHOCYTES # 3.5 10^3/ul (0.8-2.9); LYMPHOCYTES % 34.1 % (15.0-51.0); MEAN CORPUSCULAR HEMOGLOBIN 31.2 pg (29.0-33.0); MEAN CORPUSCULAR HGB CONC 33.5 g/dl (32.0-37.0); MEAN CORPUSCULAR VOLUME 93.1 fl (82.0-101.0); MEAN PLATELET VOLUME 9.5 fl (7.4-10.4); MONOCYTE # 0.9 10^3/ul (0.3-0.9); MONOCYTES % 8.9 % (0.0-11.0); NEUTROPHIL # 5.7 10^3/ul (1.6-7.5); NEUTROPHILS % 56.3 % (39.0-77.0); PLATELET COUNT 248 10^3/UL (140-415); RED BLOOD COUNT 5.04 10^6/ul (4.70-6.10); RED CELL DISTRIBUTION WIDTH 12.7 % (11.5-14.5); WHITE BLOOD COUNT 10.2 10^3/ul (4.8-10.8)
[2017-06-09 23:09] LABS: ALANINE AMINOTRANSFERASE 61 IU/L (13-69); ALBUMIN 4.2 g/dl (3.3-4.9); ALBUMIN/GLOBULIN RATIO 1.13; ALKALINE PHOSPHATASE 88 IU/L (42-121); ANION GAP 13 (8-16); ASPARTATE AMINO TRANSFERASE 32 IU/L (15-46); BILIRUBIN,INDIRECT 0.1 mg/dl (0-1.1); BILIRUBIN,TOTAL 0.1 mg/dl (0.2-1.3); BLOOD UREA NITROGEN 9 mg/dl (7-20); CALCIUM 9.1 mg/dl (8.4-10.2); CARBON DIOXIDE 29 mmol/L (21-31); CHLORIDE 104 mmol/L (97-110); CREATININE 0.65 mg/dl (0.61-1.24); GLUCOSE 86 mg/dl (70-220); POTASSIUM 3.9 mmol/L (3.5-5.1); SODIUM 142 mmol/L (135-144); TOTAL PROTEIN 7.9 g/dl (6.1-8.1)
[2017-06-09 23:19] LABS: TROPONIN-I < 0.012 ng/ml (0.00-0.12)
[2017-06-10] MEDS ORDERED: traMADol 50 MG TAB PO ONE
--- NOTE | 2017-06-10 00:02 | RADRPT ---
PROCEDURE: US bilateral lower extremity venous Doppler CLINICAL INDICATION: Bilateral swelling TECHNIQUE: Multiple sonographic images of the bilateral lower extremity deep venous system was obt ained utilizing grayscale, color-flow, compressive sonography and Doppler imaging with augmentation. COMPARISON: There are no similar studies submitted for comparison. FINDINGS: There is normal compressibility and flow within the left common femoral, superficial femoral, poplit eal, and calf veins. There is normal compressibility and flow within the right common femoral, superficial femoral, popli teal, and calf veins. IMPRESSION: No evidence of DVT within the lower extremities. RPTAT: HIKT .Mj Peña MD, MD Date Time Electronically viewed and signed by .Mj Peña MD, MD on 06/10/2017 00:01 .T/
--- NOTE | 2017-06-10 00:22 | RADRPT ---
PROCEDURE: CHEST - 1 VIEW CLINICAL INDICATION: 31-year-old male with chest pain. TECHNIQUE: A single frontal AP upright portable view of the chest was performed. The images were reviewed on a PACS workstation. COMPARISON: None. FINDINGS: The cardiomediastinal silhouette has a normal appearance. There is no evidence for an infiltrate. T he pulmonary vascularity is within normal limits. There is no evidence for pneumothorax or pneumomed iastinum. The osseous structures are intact. IMPRESSION: No evidence for active cardiopulmonary disease. .Yaniv Mata MD, MD Date Time Electronically viewed and signed by .Yaniv Mata MD, on 06/10/2017 00:22 .M/
[2017-06-10] MEDS ORDERED: TRAM50TA2 PO (00:42)
[2017-06-10 01:14] VITALS: BP 141/92; PULSE 69; RESP 20
== END 2017-06-10 01:16 | disposition home or self-care (01) ==
LOC: FTE 20:26
DX: R07.89 Other chest pain (principal); M79.89 Other specified soft tissue disorders; F17.210 Nicotine dependence, cigarettes, uncomplicated
CPT/HCPCS: 36415; 71010; 80053; 83880; 84484; 85025; 85378; 93005; 93970; Z7502; Z7610

== ENCOUNTER 2017-06-30 08:31 | Day surgery (SDC) | payer OTHER ==
[2017-06-30] VITALS (15 sets, daily range): BP systolic 97–126; BP diastolic 48–65; PULSE 69–90; RESP 12–21; Ht 177.8 cm; Wt 147.0 kg
[~2017-06-30] VITALS: Ht 177.8 cm; Wt 147.0 kg
[~2017-06-30 08:31] MED LIST changes: +ATROPINE 1 MG/10 ML SYRINGE IV PRN; +CEFAZOLIN 1 GM INJ ONE; +CEFAZOLIN 2 GM/50 ML (PMX) 50 ML IVPB ONE; +DIPHENHYDRAMINE 50 MG INJ IV PRN; +EPHEDrine SULFATE 50 MG/5 ML SYG IV PRN; +FENTAnyl 50 MCG/ML VIAL IV PRN; +HYDROmorphONE (0.2 MG/ML) 10ML SYG IV PRN; +LABETALOL HCL 20MG INJ IV PRN; +MEPERIDINE 25 MG INJ IV PRN; +MIDAZOLAM 1 MG/ML 2 ML INJ IV PRN; +ONDANSETRON 4 MG INJ IV PRN; +OXYCODONE/ACETAMINOPHEN (5/325) TAB PO PRN; +SOD CHLORIDE 0.9% 1,000 ML IV ONE; +SUGAMMADEX SODIUM 200 MG/2 ML VIAL IV ONE; +TRAM50TA2 PO; +hydrALAzine 20 MG INJ IV PRN; +morphine (1 MG/ML) 10ML SYRINGE IV PRN
[2017-06-30 09:34] LABS: BASOPHILS % 0.2 % (0.0-2.0); HEMATOCRIT 44.3 % (42.0-52.0); LYMPHOCYTES # 2.5 10^3/ul (0.8-2.9); LYMPHOCYTES % 25.3 % (15.0-51.0); MEAN CORPUSCULAR HGB CONC 33.9 g/dl (32.0-37.0); MEAN CORPUSCULAR VOLUME 91.5 fl (82.0-101.0); MEAN PLATELET VOLUME 9.7 fl (7.4-10.4); MONOCYTE # 0.9 10^3/ul (0.3-0.9); MONOCYTES % 9.1 % (0.0-11.0); NEUTROPHIL # 6.3 10^3/ul (1.6-7.5); NEUTROPHILS % 65.1 % (39.0-77.0); PLATELET COUNT 219 10^3/UL (140-415); RED BLOOD COUNT 4.84 10^6/ul (4.70-6.10); RED CELL DISTRIBUTION WIDTH 13.1 % (11.5-14.5); WHITE BLOOD COUNT 9.7 10^3/ul (4.8-10.8)
[2017-06-30 09:52] LABS: ALBUMIN 3.9 g/dl (3.3-4.9); ALBUMIN/GLOBULIN RATIO 1.08; BILIRUBIN,INDIRECT 0.2 mg/dl (0-1.1); BILIRUBIN,TOTAL 0.2 mg/dl (0.2-1.3); TOTAL PROTEIN 7.5 g/dl (6.1-8.1)
[2017-06-30 09:53] LABS: INR 0.96; PROTIME 12.8 Sec (12.2-14.2)
[2017-06-30 09:54] LABS: PARTIAL THROMBOPLASTIN TIME 30.9 Sec (25.0-35.0)
[2017-06-30 09:55] LABS: CALCIUM 8.7 mg/dl (8.4-10.2); CREATININE 0.65 mg/dl (0.61-1.24); POTASSIUM 4.1 mmol/L (3.5-5.1)
[2017-06-30] MEDS ORDERED: NEOSTIGMINE 3 MG/3 ML SYRINGE ONE (11:25)
[2017-06-30] MEDS ORDERED: MIDAZOLAM 1 MG/ML 2 ML INJ ONE (11:25)
[2017-06-30] MEDS ORDERED: SUCCINYLCHOLINE CHLORIDE 100 MG/5 ML SYG IV ONE (11:25)
[2017-06-30] MEDS ORDERED: ROCURONIUM 50 MG INJ ONE (11:25)
[2017-06-30] MEDS ORDERED: PROPOFOL 20 ML ONE (11:25)
[2017-06-30] MEDS ORDERED: LIDOCAINE 2% (SDV) 5 ML INJ ONE (11:25)
[2017-06-30] MEDS ORDERED: GLYCOPYRROLATE 0.4 MG INJ ONE (11:25)
[2017-06-30] MEDS ORDERED: FENTAnyl 50 MCG/ML VIAL ONE (11:25)
[2017-06-30] MEDS ORDERED: DEXAMETHASONE 4 MG/ML 1 ML INJ ONE (11:29)
[2017-06-30] MEDS ORDERED: ONDANSETRON 4 MG INJ ONE (11:29)
--- NOTE | 2017-06-30 14:20 | SIPON ---
Date/Time of Note Date/Time of Note DATE: 06/30/17 TIME: 14:17 Operative Report Preoperative Diagnosis Incarcerated ventral/umbilical hernia Postoperative Diagnosis Same Operation/Procedure Performed Repair of incarcerated ventral/umbilical hernia Surgeon see signature line sugar laboratory assistant Dr Strauss Anesthesia: general Estimated blood loss: 10 - 50 ml's Transfusion Required none Specimen Hernia sac and contents Grafts/Implants none Complications none LYRIC OSBORN MD Jun 30, 2017 14:20
--- NOTE | 2017-06-30 15:17 | OPR ---
DATE OF OPERATION: 06/30/2017 PREOPERATIVE DIAGNOSIS: Incarcerated ventral/umbilical hernia. POSTOPERATIVE DIAGNOSIS: Incarcerated ventral/umbilical hernia. OPERATION PERFORMED: Ventral/umbilical herniorrhaphy. ANESTHESIA: General. ANESTHESIOLOGIST: Konstantin Romero MD SURGEON: Compa Nicole MD ASSISTANT INFANT TEACHER: Dr. Strauss. INDICATIONS FOR PROCEDURE: The patient is a 31-year-old male who presented with periumbilical pain. He underwent evaluation with CAT scan and was found to have a sac containing incarcerated ventral/ umbilical hernia. He requested repair. He consented and was scheduled for surgery. DESCRIPTION OF PROCEDURE: The patient was brought to the operating theater, placed under general en dotracheal tube anesthesia. The abdomen was shaved, prepped and draped in usual sterile fashion. A n incision was made directly over the visually obvious hernia starting at a point approximately 2 to 3 cm above the umbilicus and extending down and around the umbilicus to a point of 2 to 3 cm below. Subcutaneous tissue was dissected with cautery. In the subcutaneous space, a hernia sac was ident ified. It was dissected from surrounding tissues down to its base with the abdominal wall fascia. The sac was opened and found to contain fatty tissue which was transected with the sac and both the sac and contents were sent for permanent pathologic analysis. The defect was then repaired with 0 P rolene sutures in [id number] fashion and the dermis of the umbilicus was then tacked to the abd ominal wall fascia to recreate an inverted umbilicus. This was also done utilizing 0 Prolene suture s. The wound was irrigated with Betadine and the skin was reapproximated with skin miguel. Patien t tolerated the procedure well. The estimated blood loss was 10 mL. There were no complications an d the patient was transported in stable condition to the recovery room. Dictated By: COMPA MAGUIRE/ROBERTO Conf#: [id number] DID#: [id number]
== END 2017-06-30 16:05 | disposition home or self-care (01) ==
LOC: SDS 08:31
PROVIDERS: ATTEND Surgery Surgical Oncology
DX: K43.6 Other and unspecified ventral hernia with obstruction, without gangrene (principal); K42.0 Umbilical hernia with obstruction, without gangrene; E66.01 Morbid (severe) obesity due to excess calories; Z68.42 Body mass index [BMI] 45.0-49.9, adult
CPT/HCPCS: 49561; 80053; 85025; 85610; 85730; 88302; J0690; J1100; J1170; J2175; J2250; J2405; J3010; Z7512; Z7610; J2710

== ENCOUNTER 2017-07-06 17:53 | Emergency (ER) | payer OTHER ==
[~2017-07-06] VITALS: Ht 177.8 cm; Wt 146.5 kg
[~2017-07-06 17:53] MED LIST changes: -ATROPINE 1 MG/10 ML SYRINGE IV PRN; -CEFAZOLIN 1 GM INJ ONE; -CEFAZOLIN 2 GM/50 ML (PMX) 50 ML IVPB ONE; -DIPHENHYDRAMINE 50 MG INJ IV PRN; -EPHEDrine SULFATE 50 MG/5 ML SYG IV PRN; -FENTAnyl 50 MCG/ML VIAL IV PRN; -HYDROmorphONE (0.2 MG/ML) 10ML SYG IV PRN; -LABETALOL HCL 20MG INJ IV PRN; -MEPERIDINE 25 MG INJ IV PRN; -MIDAZOLAM 1 MG/ML 2 ML INJ IV PRN; -ONDANSETRON 4 MG INJ IV PRN; -OXYCODONE/ACETAMINOPHEN (5/325) TAB PO PRN; -SOD CHLORIDE 0.9% 1,000 ML IV ONE; -SUGAMMADEX SODIUM 200 MG/2 ML VIAL IV ONE; -hydrALAzine 20 MG INJ IV PRN; -morphine (1 MG/ML) 10ML SYRINGE IV PRN
[2017-07-06 17:56] VITALS: Ht 177.8 cm; Wt 146.5 kg
[2017-07-06] MEDS ORDERED: ONDANSETRON 4 MG INJ IV STA ×2 (19:15→23:57)
[2017-07-06] MEDS ORDERED: morphine 4 MG/ML VIAL IV STA (19:15)
[2017-07-06] MEDS ORDERED: SOD CHLORIDE 0.9% 1,000 ML IV STA (19:15)
[2017-07-06 19:57] LABS: BASOPHILS % 0.3 % (0.0-2.0); HEMATOCRIT 51.4 % (42.0-52.0); HEMOGLOBIN 17.8 g/dl (14.0-18.0); LYMPHOCYTES # 2.9 10^3/ul (0.8-2.9); LYMPHOCYTES % 24.3 % (15.0-51.0); MEAN CORPUSCULAR HGB CONC 34.6 g/dl (32.0-37.0); MEAN CORPUSCULAR VOLUME 92.3 fl (82.0-101.0); MEAN PLATELET VOLUME 9.3 fl (7.4-10.4); MONOCYTE # 1.1 10^3/ul (0.3-0.9); MONOCYTES % 9.4 % (0.0-11.0); NEUTROPHIL # 7.8 10^3/ul (1.6-7.5); NEUTROPHILS % 65.5 % (39.0-77.0); PLATELET COUNT 292 10^3/UL (140-415); RED BLOOD COUNT 5.57 10^6/ul (4.70-6.10); RED CELL DISTRIBUTION WIDTH 12.8 % (11.5-14.5); WHITE BLOOD COUNT 11.9 10^3/ul (4.8-10.8)
[2017-07-06 20:15] LABS: ALBUMIN 4.6 g/dl (3.3-4.9); ALBUMIN/GLOBULIN RATIO 1.15; BILIRUBIN,INDIRECT 0.4 mg/dl (0-1.1); BILIRUBIN,TOTAL 0.4 mg/dl (0.2-1.3); CALCIUM 9.7 mg/dl (8.4-10.2); CREATININE 0.71 mg/dl (0.61-1.24); POTASSIUM 4.1 mmol/L (3.5-5.1); TOTAL PROTEIN 8.6 g/dl (6.1-8.1)
[2017-07-06] MEDS ORDERED: KETOROLAC 30 MG INJ IV STA (20:42)
[2017-07-06] MEDS ORDERED: IOHEXOL 300MG/ML 150 ML BTL ONE (20:43)
[2017-07-06] MEDS ORDERED: SOD CHLORIDE 0.9% 100 ML ONE (20:43)
--- NOTE | 2017-07-06 20:47 | ERD ---
ER Documentation Chief Complaint Date/Time DATE: 07/06/17 TIME: 20:43 Chief Complaint SURGERY FOR UMBILICAL HERNIA ON 06/30 , HERE FOR WOUND CHECK AND PAIN HPI This is a 31-year-old male who presents to the emergency department complaining of abdominal pain. The patient indicates that he had an umbilical hernia herniation with repair on June 30, 2017, 6 days prior to arrival. The surgery was performed at [facility] by Dr. Nicole. 2 days prior to arrival he had an outpatient follow-up appointment and indicated the miguel were removed. There was wound dehiscence and he was instructed to let the wound heal by secondary intention. He indicates that since that time he has been having a significant amount of pain around the wound dehiscence site. He indicated there is no purulent drainage and there was a small amount of bloody discharge which had resolved. He has had no fevers or shaking or chills. He does indicate that the pain began to radiate to both the left and the right lower quadrant of the abdomen. Scribed the pain as a sharp shooting pain, 8 out of 10 in intensity exacerbated with movement and cough. He denies any frequency urgency or dysuria. He denies any testicular pain or swelling. He has had no fevers or shaking or chills. He has no shortness of breath at rest or exertion. He denies any swelling of his lower extremities. He has taken Alpine for analgesia control and indicates he has had a bowel movement in the past 24 hours, flatulence and no emesis. ROS All systems reviewed and are negative except as per history of present illness. Medications Home Meds Active Scripts Tramadol HCl (Tramadol HCl) 50 Mg Tablet, 50 MG PO Q6 Y for PAIN, #20 TAB Prov:MARLON CUELLAR NP 06/10/17 Docusate Sodium* (Colace*) 100 Mg Capsule, 100 MG PO TID, #30 CAP Prov:MARLON CUELLAR NP 05/12/17 Polyethylene Glycol* (Miralax*) 17 Gm Powd.pack, 17 GM PO DAILY, #7 Prov:MARLON CUELLAR NP 05/12/17 Oxycodone HCl/Acetaminophen (Percocet 10-325 mg Tablet) 1 Each Tablet, 1 EACH PO Q6, #5 TAB Prov:MARLON CUELLAR NP 05/12/17 Sulfamethoxazole/Trimethoprim* (Bactrim Ds* Tablet) 1 Each Tablet, 1 TAB PO BID for 7 Days, #14 TAB Prov:CARMEN COOPER PA-C 05/05/17 Cephalexin* (Keflex*) 500 Mg Capsule, 500 MG PO QID for 7 Days, CAP Prov:CARMEN COOPER PA-C 05/05/17 Ibuprofen* (Motrin*) 800 Mg Tab, 800 MG PO Q6, #30 TAB take with food Prov:CARMEN COOPER PA-C 05/05/17 Hydrocodone/Acetaminophen (Alpine 5-325 Tablet) 1 Each Tablet, 1 TAB PO Q6H Y for PAIN, #14 TAB Prov:CARMEN COOPER PA-C 05/05/17 Oxycodone HCl/Acetaminophen (Percocet 5-325 mg Tablet) 1 Each Tablet, 1 EACH PO Q6, #15 TAB Prov:VARUN HARRIS 03/04/17 Ibuprofen* (Motrin*) 600 Mg Tab, 600 MG PO Q6, #30 TAB Prov:VARUN HARRIS 03/04/17 Ondansetron (Ondansetron Odt) 4 Mg Tab.rapdis, 4 MG PO Q8 Y for NAUSEA AND/OR VOMITING, #30 TAB Prov:MARLON CUELLAR NP 12/26/16 Oxycodone HCl/Acetaminophen (Percocet 5-325 mg Tablet) 1 Each Tablet, 1 EACH PO Q6 for SEVERE PAIN LEVEL 7-10, #20 TAB Prov:MARLON CUELLAR NP 12/26/16 Reported Medications Oxycodone Hcl/Acetaminophen (Percocet) 1 Tab Tab, 1 TAB PO Q6NARC Y 05/20/13 Acetaminophen/Hydrocodone (Vicodin) 1 Tab Tab, 1 TAB PO BID 06/11/11 Allergies Allergies: Coded Allergies: No Known Allergy (Verified , 06/09/17) NKA PER SDS PRE-OP ORDER SHEET 06/11/11 PMhx/Soc History of Surgery: Yes (L KNEE, R SHOULDER ORTO SX, HERNIA) Anesthesia Reaction: No Hx Neurological Disorder: No Hx Respiratory Disorders: No Hx Cardiac Disorders: No Hx Psychiatric Problems: Yes Hx Miscellaneous Medical Probl: No Hx Alcohol Use: Yes Hx Substance Use: Yes (MARIJUANA) Hx Tobacco Use: Yes Smoking Status: Current every day smoker Physical Exam Vitals Vital Signs Date Time Temp Pulse Resp B/P Pulse Ox O2 Delivery O2 Flow Rate FiO2 07/06/17 17:56 98.9 95 18 165/82 98 Physical Exam Constitutional:Well-developed. Well-nourished. HEENT:Normocephalic. Atraumatic.Pupils were equal round reactive to light. Moist mucous membranes.No tonsillar exudates. Neck: No nuchal rigidity. No lymphadenopathy. No posterior cervical spine tenderness or step-offs. Respiratory: Not using accessory muscles of respiration.Lungs were clear to auscultation bilaterally. No rhonchi. No rales. No wheezing. Cardiovascular: Regular rate regular rhythm.No murmurs. No rubs were appreciated.S1, S2 normal. Distal pulses are palpable 2+ bilaterally. GI: Abdomen was soft. No tenderness around the surgical incision site with wound dehiscence of well-healing surgical site 5 cm x 4 cm distal to the umbilicus. No surrounding subcutaneous emphysema warmth tenderness fluctuance or induration. No purulent or serosanguineous discharge from the wound. Non Distended. No pulsatile abdominal masses or bruits. No rebound. No guarding. Bowel sounds were present and normal. Muscle skeletal: Full range of motion of both the upper and lower extremities bilaterally.Normal muscle tone.No assymetrical calf tenderness or swelling. Skin: No petechia, no purpura. No lesions on the palms or the soles of the feet. No maculopapular rash. NEURO: Patient was alert, awake, orientated x3.No facial droop. Gait observed and normal with no ataxia.Speech had regular rate and rhythm. No focal neurological deficits. Result Diagram: 07/06/17194507/06/171945 Results 24 hrs Laboratory Tests Test 07/06/17 19:46 White Blood Count 11.910^3/ul Red Blood Count 5.5710^6/ul Hemoglobin 17.8g/dl Hematocrit 51.4% Mean Corpuscular Volume 92.3fl Mean Corpuscular Hemoglobin 32.0pg Mean Corpuscular Hemoglobin Concent 34.6g/dl Red Cell Distribution Width 12.8% Platelet Count 18781^3/UL Mean Platelet Volume 9.3fl Neutrophils % 65.5% Lymphocytes % 24.3% Monocytes % 9.4% Eosinophils % 0.0% Basophils % 0.3% Nucleated Red Blood Cells % 0.0/100WBC Neutrophils # 7.810^3/ul Lymphocytes # 2.910^3/ul Monocytes # 1.110^3/ul Eosinophils # 0.010^3/ul Basophils # 0.010^3/ul Nucleated Red Blood Cells # 0.010^3/ul Sodium Level 143mmol/L Potassium Level 4.1mmol/L Chloride Level 103mmol/L Carbon Dioxide Level 30mmol/L Anion Gap 14 Blood Urea Nitrogen 9mg/dl Creatinine 0.71mg/dl Glucose Level 80mg/dl Calcium Level 9.7mg/dl Total Bilirubin 0.4mg/dl Direct Bilirubin 0.00mg/dl Indirect Bilirubin 0.4mg/dl Aspartate Amino Transf (AST/SGOT) 37IU/L Alanine Aminotransferase (ALT/SGPT) 69IU/L Alkaline Phosphatase 100IU/L Total Protein 8.6g/dl Albumin 4.6g/dl Globulin 4.00g/dl Albumin/Globulin Ratio 1.15 Amylase Level 49U/L Lipase 68U/L Current Medications Medications (Trade) Dose Ordered Sig/Yuki Route PRN Reason Start Time Stop Time Status Last Admin Dose Admin Sodium Chloride (NS) 1,000 ml @ 1,000 mls/hr Q1H STAT IV 07/06/17 19:15 07/06/17 20:14 DC 07/06/17 19:33 Morphine Sulfate (morphine) 4 mg ONCE STAT IV 07/06/17 19:15 07/06/17 19:17 DC 07/06/17 19:20 Ondansetron HCl (Zofran Inj) 4 mg ONCE STAT IV 07/06/17 19:15 07/06/17 19:17 DC 07/06/17 19:33 Procedures/MDM This patient presented to the emergency department with post operative abdominal pain and was seen and evaluated by myself. My differential diagnosis included but was not limited to abdominal aortic aneurysm, appendicitis, pancreatitis, perforated peptic ulcer, perforated viscus, Boerhaaves syndrome or visceral pain such as diverticulitis, DKA, esophagitis, hepatitis or bowel obstruction. The patient was placed on a vehicle monitor technician, continuous pulse oximetry, and IV access was established by nursing staff. Patient received intravenous morphine Toradol and Zofran. No leukocytosis or electrolyte abnormalities. Did obtain a CT scan of the abdomen which indicated no postoperative abscess or small bowel obstruction. The patient had no physical exam findings to suggest overlying cellulitic infection. The wound was instructed to heal by secondary intention and I explained to the patient at this time but I did feel this was postoperative pain with no complications. The patient was discharged home in fair condition. They were instructed to return to the emergency department at any time if there was any worsening of their condition. The patient stated they would follow up with their PCP in the next 24-48 hours to initiate a suitable medication regimen under the care of their PCP as well as to allow their PCP to monitor any drug reactions. The patient was discharged home with prescriptions after they gave informed consent to the new medication. They were also fully informed by myself on the adverse effects and adverse drug interactions in order to provide adequate safeguards to prevent possible adverse reactions to medications. Departure Diagnosis: Primary Impression: Encounter for wound re-check Additional Impression: Postoperative pain Condition: Fair ARIN MENDEZ Jul 06, 2017 20:47
[2017-07-06 20:55] LABS: INR 0.99; PARTIAL THROMBOPLASTIN TIME 30.3 Sec (25.0-35.0); PROTIME 13.1 Sec (12.2-14.2)
--- NOTE | 2017-07-06 22:16 | RADRPT ---
PROCEDURE: CT Abdomen and Pelvis with contrast. CLINICAL INDICATION: Abdominal pelvic pain. Recent hernia surgery 1 week ago. TECHNIQUE: CT scan of the abdomen and pelvis with contrast was performed on a multi-detector high- resolution CT scanner. The patient was scanned following the uncomplicated intravenous administrati on of 100 cc of Omnipaque 300. Coronal and sagittal reformatted images were obtained from the axial source images. Images were reviewed on a high-resolution PACS workstation. The total exam CTDI equa ls 28.92 mGy and the total exam DLP equals 2069.31 mGy-cm. One or more of the following dose reduction techniques were used: - Automated exposure control. - Adjustment of the mA and/or kV according to patient size. - Use of iterative reconstruction technique. COMPARISON: CT scan 05/12/2017 FINDINGS: CT abdomen: The lung bases are clear. The heart size is normal, without pericardial thickening or effusion. Th e liver is normal in size and density without focal mass or intrahepatic biliary dilatation. The sp pro is normal in size and homogeneous in density. The stomach is partially collapsed, but is gross ly unremarkable. The pancreas as visualized is normal. The gallbladder and biliary tree are unrema rkable and there is no evidence for biliary dilatation. The adrenal glands are symmetric and normal . The kidneys are symmetrically unremarkable as well. No renal calculus or obstructive uropathy or mass lesion is seen. The aorta is of normal caliber. Aortic vascular calcifications are present. There is no retroperit dick lymphadenopathy. The romel hepatis region is remarkable for small shoddy romel hepatis lymph nodes, not enlarged by size criteria. The bowel and mesentery, as visualized, are equally unremarka ble. Infiltration and edema of the periumbilical space is seen. There is a focal hernia at this loca tion containing omental fat. Findings are consistent with inflammatory changes secondary to recent s urgery. No focal fluid collection or abscess is identified. CT pelvis: The small bowel loops situated within the pelvis are unremarkable. Normal retrocecal appendix is id entified. The pelvic organs are normal. The pelvic sidewalls and inguinal regions are clear. The s igmoid colon and rectum are unremarkable. No mass or adenopathy is seen. No free fluid is identifie d. No acute inflammation is seen. The bladder is normal. The surrounding osseous structures are unremarkable. No osteolytic or osteoblastic lesion is detect ed. IMPRESSION: 1. Infiltration and inflammatory changes in the periumbilical space from recent umbilical hernia re pair. 2. No focal fluid collection or abscess is identified, although there is significant inflammatory c hanges at this location at this time. 3. Elsewhere, the remainder of the CT abdomen and pelvis is unremarkable. RPTAT: HMJB .Manuel Eaton MD, Date Time Electronically viewed and signed by .Manuel Eaton MD, on 07/06/2017 22:15 .B/
[2017-07-06] MEDS ORDERED: HYDR-906 PO (23:50)
[2017-07-06] MEDS ORDERED: HYDROmorphONE 1 MG/ML SYG IV STA (23:57)
[2017-07-06] MEDS ORDERED: OXYC-279 PO (23:58)
[2017-07-07 01:06] VITALS: BP 123/78; PULSE 78; RESP 18; TEMP 98.2
== END 2017-07-07 01:07 | disposition home or self-care (01) ==
LOC: FTE 17:53
DX: G89.18 Other acute postprocedural pain (principal); R10.9 Unspecified abdominal pain; F17.210 Nicotine dependence, cigarettes, uncomplicated; R07.9 Chest pain, unspecified
CPT/HCPCS: 36415; 74177; 80053; 82150; 83690; 85025; 85610; 85730; 96374; 96375; J1170; J1885; J2270; J2405; J7030; Q9967; Z7502; Z7610

== ENCOUNTER 2017-07-20 19:30 | Emergency (ER) | payer OTHER ==
[~2017-07-20] VITALS: Ht 175.3 cm; Wt 148.0 kg
[2017-07-20 19:44] VITALS: Ht 175.3 cm; Wt 148.0 kg
[2017-07-20] MEDS ORDERED: ONDANSETRON 4 MG INJ IV STA (20:21)
[2017-07-20] MEDS ORDERED: morphine 4 MG/ML VIAL IV STA ×2 (20:21→23:05)
[2017-07-20] MEDS ORDERED: SOD CHLORIDE 0.9% 100 ML ONE (21:29)
[2017-07-20] MEDS ORDERED: IOHEXOL 300MG/ML 150 ML BTL ONE (21:29)
--- NOTE | 2017-07-20 22:58 | RADRPT ---
PROCEDURE: Testicle ultrasound with power Doppler. CLINICAL INDICATION: Scrotal pain. TECHNIQUE: Multiple sonographic images of the scrotal region were obtained utilizing a linear arra y transducer with grayscale and color-flow and a Doppler imaging. The images were reviewed on a high -resolution PACS workstation. COMPARISON: 05/12/2017. FINDINGS: Bilateral testicles are normal in size, contour, echogenicity and echotexture. The right testicle m easures 4.3 x 1.9 x 2.9 cm and the left testicle measures 4.3 x 1.9 x 2.9 cm. Testicle arterial and venous flow are normal. There is no evidence of testicular mass or torsion. There is a 1.7 x 1.7 1. 2 mm echogenic focus with posterior shadowing within the medial aspect of the left testicle. There i s no evidence of orchitis. Bilateral epididymi are normal in size, contour, position and echogenicity. The right epididymis me asures 6.9 x 3.6 x 7.5 mm the left epididymis measures 7.3 x 2.5 x 10.1 mm. There is no evidence of epididymitis. There is a right epididymal cyst measuring 2.7 x 3.3 x 2.3 mm. There is no significant hydrocele. There is a left-sided varicocele. Scrotal soft tissues are unremarkable. IMPRESSION: Left-sided varicocele, unchanged. Solitary left testicular microlithiasis, unchanged. Right epididymal cyst. Otherwise unremarkable testicular ultrasound. .Dada Echevarria MD, MD Date Time Electronically viewed and signed by .Dada Echevarria MD, MD on 07/20/2017 22:58 .T/
--- NOTE | 2017-07-20 23:09 | RADRPT ---
PROCEDURE: CT Abdomen and pelvis with contrast. CLINICAL INDICATION: Abdominal pain. TECHNIQUE: CT scan of the abdomen and pelvis with contrast was performed on a multi-detector high -resolution CT scanner. The patient was scanned following the uncomplicated administration of 100 c c of Omnipaque 300 intravenous contrast. Coronal and sagittal reformatted images were obtained from the axial source images. Images were reviewed on a high-resolution PACS workstation. One or more of the following dose reduction techniques were used: - Automated exposure control. - Adjustment of the mA and/or kV according to patient size. - Use of iterative reconstruction technique. Exam CTD/vol = 23.80 mGy. Total exam DLP = 1666.01 mGy-cm. COMPARISON: 07/06/2017. FINDINGS: Evaluation of the lung bases demonstrates no pleural or parenchymal disease. Abdomen: The liver is normal in size. There is no focal mass or dilatation of the biliary tree. T he gallbladder is not distended. The spleen, pancreas and bilateral adrenal glands are within rolf l limits. Bilateral kidneys are normal in size with symmetric enhancement. There is no focal mass, hydronephrosis or hydroureter. There is no retroperitoneal adenopathy. The abdominal aorta is of normal caliber. There is subcutaneous stranding within the umbilical region consistent with recent umbilical hernia repair. There is no bowel obstruction or free air. A normal appendix is identified. There is no d iverticulosis or diverticulitis. There is no ascites. Pelvis: The bladder is unremarkable. The prostate and seminal vesicles are within normal limits. There is no significant pelvic adenopathy or free fluid. Evaluation of the osseous structures demonstrates no suspicious lytic or blastic lesion. IMPRESSION: Subcutaneous stranding within the umbilical region consistent with recent umbilical hernia repair, u nchanged. Otherwise no acute abnormality identified within the abdomen and pelvis. .Dada Echevarria MD, MD Date Time Electronically viewed and signed by .Dada Echevarria MD, MD on 07/20/2017 23:09 .T/
[2017-07-20] MEDS ORDERED: TRAM50TA2 PO (23:13)
[2017-07-20] MEDS ORDERED: DOXY100T20 PO (23:27)
--- NOTE | 2017-07-24 12:01 | ERD ---
ER Documentation Chief Complaint Chief Complaint sx wound x 3 weeks. Report foul odor and pain radiating to testicles HPI This patient is a 31-year-old male presenting to the emergency department with complaints of testicular pain and right lower quadrant abdominal pain ongoing intermittently for the past 3 weeks. Patient did have umbilical hernia surgery on June 30, 2017 and it was healing well with no fevers. He does have an appointment with the surgeon in 1 week. Current pain started about 2 days ago. The patient had a full workup here in the emergency department on July 06, with no significant acute abnormalities. He was discharged home at that time. He reports discharge and foul odor from his surgical site. He also reports a small abscess noted to the left posterior thigh. He denies fevers, chills, nausea, vomiting, diarrhea, or other symptoms at this time. ROS All systems reviewed and are negative except as per history of present illness. Medications Home Meds Active Scripts Doxycycline Hyclate* (Doxycycline Hyclate*) 100 Mg Tablet.dr, 100 MG PO BID for 10 Days, #20 TAB Prov:HERMILA GARAY PA-C 07/20/17 Tramadol HCl (Tramadol HCl) 50 Mg Tablet, 50 MG PO Q4 Y for PAIN, #12 TAB Prov:HERMILA GARAY PA-C 07/20/17 Oxycodone HCl/Acetaminophen (Percocet 5-325 mg Tablet) 1 Each Tablet, 1 EACH PO Q6, #20 TAB Prov:ARIN MENDEZ 07/06/17 Hydrocodone/Acetaminophen ([place] 5-325 Tablet) 1 Each Tablet, 1 EACH PO Q6, #20 TAB Prov:ARIN MENDEZ 07/06/17 Tramadol HCl (Tramadol HCl) 50 Mg Tablet, 50 MG PO Q6 Y for PAIN, #20 TAB Prov:MARLON CUELLAR NP 06/10/17 Docusate Sodium* (Colace*) 100 Mg Capsule, 100 MG PO TID, #30 CAP Prov:MARLON CUELLAR NP 05/12/17 Polyethylene Glycol* (Miralax*) 17 Gm Powd.pack, 17 GM PO DAILY, #7 Prov:MARLON CUELLAR NP 05/12/17 Oxycodone HCl/Acetaminophen (Percocet 10-325 mg Tablet) 1 Each Tablet, 1 EACH PO Q6, #5 TAB Prov:MARLON CUELLAR NP 05/12/17 Sulfamethoxazole/Trimethoprim* (Bactrim Ds* Tablet) 1 Each Tablet, 1 TAB PO BID for 7 Days, #14 TAB Prov:CARMEN COOPER PA-C 05/05/17 Cephalexin* (Keflex*) 500 Mg Capsule, 500 MG PO QID for 7 Days, CAP Prov:CARMEN COOPER PA-C 05/05/17 Ibuprofen* (Motrin*) 800 Mg Tab, 800 MG PO Q6, #30 TAB take with food Prov:CARMEN COOPER PA-C 05/05/17 Hydrocodone/Acetaminophen ([place] 5-325 Tablet) 1 Each Tablet, 1 TAB PO Q6H Y for PAIN, #14 TAB Prov:CARMEN COOPER PA-C 05/05/17 Oxycodone HCl/Acetaminophen (Percocet 5-325 mg Tablet) 1 Each Tablet, 1 EACH PO Q6, #15 TAB Prov:VARUN HARRIS 03/04/17 Ibuprofen* (Motrin*) 600 Mg Tab, 600 MG PO Q6, #30 TAB Prov:VARUN HARRIS 03/04/17 Ondansetron (Ondansetron Odt) 4 Mg Tab.rapdis, 4 MG PO Q8 Y for NAUSEA AND/OR VOMITING, #30 TAB Prov:MARLON CUELLAR NP 12/26/16 Oxycodone HCl/Acetaminophen (Percocet 5-325 mg Tablet) 1 Each Tablet, 1 EACH PO Q6 for SEVERE PAIN LEVEL 7-10, #20 TAB Prov:MARLON CUELLAR NP 12/26/16 Reported Medications Oxycodone Hcl/Acetaminophen (Percocet) 1 Tab Tab, 1 TAB PO Q6NARC Y 05/20/13 Acetaminophen/Hydrocodone (Vicodin) 1 Tab Tab, 1 TAB PO BID 06/11/11 Allergies Allergies: Coded Allergies: No Known Allergy (Verified , 07/20/17) NKA PER SDS PRE-OP ORDER SHEET 06/11/11 PMhx/Soc History of Surgery: Yes (L KNEE, R SHOULDER ORTO SX, HERNIA) Anesthesia Reaction: No Hx Neurological Disorder: No Hx Respiratory Disorders: No Hx Cardiac Disorders: No Hx Psychiatric Problems: Yes Hx Miscellaneous Medical Probl: No Hx Alcohol Use: Yes Hx Substance Use: Yes (MARIJUANA) Hx Tobacco Use: Yes Smoking Status: Current every day smoker Physical Exam Vitals Vital Signs Date Time Temp Pulse Resp B/P Pulse Ox O2 Delivery O2 Flow Rate FiO2 07/20/17 19:44 98.9 102 18 157/87 99 Physical Exam Const: Morbidly obese male resting in no acute distress. Head: Atraumatic Eyes: Normal Conjunctiva ENT: Normal External Ears, Nose and Mouth. Neck: Full range of motion..~ No meningismus. Resp: Clear to auscultation bilaterally Cardio: Regular rate and rhythm, no murmurs Abd: Soft, wound dehiscence noted just to the right of the umbilicus, there is some tenderness palpation of the right lower quadrant but no rebound tenderness or guarding, non distended. Normal bowel sounds Skin: There is an approximate 1 cm x 1 cm indurated abscess without current drainage noted to the posterior left thigh. Back: No midline or flank tenderness Ext: No cyanosis, or edema Neur: Awake and alert Psych: Normal Mood and Affect Result Diagram: 07/20/17204407/20/172044 Results 24 hrs Laboratory Tests Test 07/20/17 20:33 07/20/17 20:45 Urine Color JOSEPH Urine Clarity SLIGHTLY CLOUDY Urine pH 5.0 Urine Specific [facility] 1.027 Urine Ketones NEGATIVEmg/dL Urine Nitrite NEGATIVEmg/dL Urine Bilirubin NEGATIVEmg/dL Urine Urobilinogen 1+mg/dL Urine Leukocyte Esterase NEGATIVELeu/ul Urine Microscopic RBC 1/HPF Urine Microscopic WBC 2/HPF Urine Mucus FEW/HPF Urine Hemoglobin NEGATIVEmg/dL Urine Glucose NEGATIVEmg/dL Urine Total Protein NEGATIVEmg/dl White Blood Count 9.910^3/ul Red Blood Count 5.0810^6/ul Hemoglobin 16.1g/dl Hematocrit 46.9% Mean Corpuscular Volume 92.3fl Mean Corpuscular Hemoglobin 31.7pg Mean Corpuscular Hemoglobin Concent 34.3g/dl Red Cell Distribution Width 12.7% Platelet Count 27920^3/UL Mean Platelet Volume 9.8fl Neutrophils % 68.1% Lymphocytes % 23.0% Monocytes % 8.3% Eosinophils % 0.0% Basophils % 0.3% Nucleated Red Blood Cells % 0.0/100WBC Neutrophils # 6.710^3/ul Lymphocytes # 2.310^3/ul Monocytes # 0.810^3/ul Eosinophils # 0.010^3/ul Basophils # 0.010^3/ul Nucleated Red Blood Cells # 0.010^3/ul Prothrombin Time 13.3Sec Prothrombin Time Ratio 1.0 INR International Normalized Ratio 1.01 Activated Partial Thromboplast Time 30.3Sec Sodium Level 143mmol/L Potassium Level 3.8mmol/L Chloride Level 104mmol/L Carbon Dioxide Level 28mmol/L Anion Gap 15 Blood Urea Nitrogen 10mg/dl Creatinine 0.67mg/dl Glucose Level 79mg/dl Calcium Level 8.9mg/dl Total Bilirubin 0.4mg/dl Direct Bilirubin 0.00mg/dl Indirect Bilirubin 0.4mg/dl Aspartate Amino Transf (AST/SGOT) 32IU/L Alanine Aminotransferase (ALT/SGPT) 61IU/L Alkaline Phosphatase 94IU/L Total Protein 7.9g/dl Albumin 4.6g/dl Globulin 3.30g/dl Albumin/Globulin Ratio 1.39 Lipase 65U/L Current Medications Medications (Trade) Dose Ordered Sig/Yuki Route PRN Reason Start Time Stop Time Status Last Admin Dose Admin Morphine Sulfate (morphine) 4 mg ONCE STAT IV 07/20/17 20:21 07/20/17 20:23 DC 07/20/17 20:56 Ondansetron HCl (Zofran Inj) 4 mg ONCE STAT IV 07/20/17 20:21 07/20/17 20:23 DC 07/20/17 20:56 IV Flush 10 ml 10 ml STK-MED ONCE .ROUTE 07/20/17 21:29 07/20/17 21:30 DC Sodium Chloride (NS) 100 ml @ ud STK-MED ONCE .ROUTE 07/20/17 21:29 07/20/17 21:30 DC Iohexol (Omnipaque 300mg/ ml) 150 ml STK-MED ONCE .ROUTE 07/20/17 21:29 07/20/17 21:30 DC Morphine Sulfate (morphine) 4 mg ONCE STAT IV 07/20/17 23:05 07/20/17 23:06 DC 07/20/17 23:11 Procedures/MDM 31-year-old male presenting to the emergency department with complaints of abdominal pain. The patient was placed on a gurney, IV line established, IV morphine, IV Zofran, IV fluids administered. The patient is feeling improved on reevaluation. Review of laboratory studies showed no evidence of leukocytosis or anemia, chemistry panel was unremarkable, urinalysis is not concerning for any urinary tract infection or proteinuria. CT abdomen showed no changes since the prior study. There is no acute abnormality identified within the abdomen and pelvis except for subcutaneous stranding within the umbilical region consistent with a recent umbilical hernia repair. Testicular ultrasound showed left-sided varicocele, unchanged. Solitary left testicular microlithiasis, unchanged. Right epididymal cyst. Otherwise unremarkable testicular ultrasound. Patient's symptoms are likely secondary to regular postop pain. No acute life-threatening pathology was identified. The patient is to have follow-up with his primary care physician and his surgeon within the next 1-2 days. The patient will be given antibiotics and pain medication for his abscess in his postop pain. No evidence of life-threatening pathology at time of discharge. Pt/family in agreement with discharge plan/diagnosis. Pt/family advised to return immediately with any new or worsening symptoms. Follow-up with primary care physician within the next 1-2 days. Disclaimer: Inadvertent spelling and grammatical errors are likely due to EHR/ dictation software use and do not reflect on the overall quality of patient care. Also, please note that the electronic time recorded on this note does not necessarily reflect the actual time of the patient encounter. PROCEDURE: CT Abdomen and pelvis with contrast. CLINICAL INDICATION: Abdominal pain. TECHNIQUE: CT scan of the abdomen and pelvis with contrast was performed on a multi-detector high-resolution CT scanner. The patient was scanned following the uncomplicated administration of 100 cc of Omnipaque 300 intravenous contrast. Coronal and sagittal reformatted images were obtained from the axial source images. Images were reviewed on a high-resolution PACS workstation. One or more of the following dose reduction techniques were used: - Automated exposure control. - Adjustment of the mA and/or kV according to patient size. - Use of iterative reconstruction technique. Exam CTD/vol = 23.80 mGy. Total exam DLP = 1666.01 mGy-cm. COMPARISON: 07/06/2017. FINDINGS: Evaluation of the lung bases demonstrates no pleural or parenchymal disease. Abdomen: The liver is normal in size. There is no focal mass or dilatation of the biliary tree. The gallbladder is not distended. The spleen, pancreas and bilateral adrenal glands are within normal limits. Bilateral kidneys are normal in size with symmetric enhancement. There is no focal mass, hydronephrosis or hydroureter. There is no retroperitoneal adenopathy. The abdominal aorta is of normal caliber. There is subcutaneous stranding within the umbilical region consistent with recent umbilical hernia repair. There is no bowel obstruction or free air. A normal appendix is identified. There is no diverticulosis or diverticulitis. There is no ascites. Pelvis: The bladder is unremarkable. The prostate and seminal vesicles are within normal limits. There is no significant pelvic adenopathy or free fluid. Evaluation of the osseous structures demonstrates no suspicious lytic or blastic lesion. IMPRESSION: Subcutaneous stranding within the umbilical region consistent with recent umbilical hernia repair, unchanged. Otherwise no acute abnormality identified within the abdomen and pelvis. .Dada Echevarria MD, Date Time Electronically viewed and signed by .Dada Echevarria MD, MD on 07/20/2017 23:09 PROCEDURE: Testicle ultrasound with power Doppler. CLINICAL INDICATION: Scrotal pain. TECHNIQUE: Multiple sonographic images of the scrotal region were obtained utilizing a linear array transducer with grayscale and color-flow and a Doppler imaging. The images were reviewed on a high-resolution PACS workstation. COMPARISON: 05/12/2017. FINDINGS: Bilateral testicles are normal in size, contour, echogenicity and echotexture. The right testicle measures 4.3 x 1.9 x 2.9 cm and the left testicle measures 4.3 x 1.9 x 2.9 cm. Testicle arterial and venous flow are normal. There is no evidence of testicular mass or torsion. There is a 1.7 x 1.7 1.2 mm echogenic focus with posterior shadowing within the medial aspect of the left testicle. There is no evidence of orchitis. Bilateral epididymi are normal in size, contour, position and echogenicity. The right epididymis measures 6.9 x 3.6 x 7.5 mm the left epididymis measures 7.3 x 2.5 x 10.1 mm. There is no evidence of epididymitis. There is a right epididymal cyst measuring 2.7 x 3.3 x 2.3 mm. There is no significant hydrocele. There is a left-sided varicocele. Scrotal soft tissues are unremarkable. IMPRESSION: Left-sided varicocele, unchanged. Solitary left testicular microlithiasis, unchanged. Right epididymal cyst. Otherwise unremarkable testicular ultrasound. .Dada Echevarria MD, MD Date Time Electronically viewed and signed by .Dada Echevarria MD, on 07/20/2017 22:58 Departure Diagnosis: Primary Impression: Abdominal pain Abdominal location: generalized Qualified Code: R10.84 - Generalized abdominal pain Additional Impression: Abscess Condition: Fair Patient Instructions: Abdominal Pain, Abscess, Antiobiotic Treatment Only Additional Instructions: Follow-up with your surgeon at the next scheduled appointment, follow-up sooner if your symptoms worsen. Follow up with your PCP within the next 1-3 days for a repeat evaluation. If you require a referral to a specialist, your Primary Care Provider may be able to provide this for you. In most patient cases, a referral is not required. If you have further questions regarding this matter, please ask your Primary Care Provider. Return the the emergency department immediately if symptoms worsen or change. If you have any questions regarding medications, ask your pharmacist or us before you leave. If any adverse reactions, occur while taking your medications, discontinue the treatment and return to the emergency department immediately. If any new or worsening symptoms, uncontrolled fevers, or other unexplained symptoms occur, return to the emergency department immediately. Take your medications as directed, and complete the entire course of treatment. HERMILA GARAY PA-C Jul 24, 2017 12:01
== END 2017-07-20 23:52 | disposition home or self-care (01) ==
LOC: FTE 19:30
DX: L02.416 Cutaneous abscess of left lower limb (principal); F17.210 Nicotine dependence, cigarettes, uncomplicated; R10.84 Generalized abdominal pain
CPT/HCPCS: 36415; 74177; 76870; 80053; 81001; 83690; 85025; 85610; 85730; 96374; 96375; 96376; J2270; J2405; Q9967; Z7502; Z7610; 81003

== ENCOUNTER 2018-05-18 21:56 | Emergency (ER) | END 2018-05-19 04:05 | disposition home or self-care (01) ==

== ENCOUNTER 2018-07-08 23:15 | Emergency (ER) | END 2018-07-09 02:40 | disposition home or self-care (01) ==

== ENCOUNTER 2018-08-26 23:32 | Emergency (ER) | END 2018-08-27 03:26 | disposition home or self-care (01) ==

== ENCOUNTER 2018-08-31 23:13 | Emergency (ER) | END 2018-09-01 03:51 | disposition home or self-care (01) ==

== ENCOUNTER 2018-09-27 03:34 | Emergency (ER) | payer OTHER ==
[~2018-09-27] VITALS: Ht 177.8 cm; Wt 149.5 kg
[~2018-09-27 03:34] MED LIST changes: -CEPH-443 PO; -DOCU-144 PO; +DOXY100T20 PO; +HYDR-3980 PO; -HYDR-906 PO; -IBUP800T25 PO; -ONDA4TAB14 PO; -OXYC-209 PO; -OXYC-279 PO; -PERCOCET PO; -POLY17PO6 PO; -SULF1TAB31 PO; -VIC PO
[2018-09-27 03:36] VITALS: BP 140/90; Ht 177.8 cm; Wt 149.5 kg
[2018-09-27] MEDS ORDERED: PSEU-79 PO (05:12)
[2018-09-27] MEDS ORDERED: PROM6.2515 PO (05:12)
[2018-09-27] MEDS ORDERED: IBUP800T48 PO (05:12)
[2018-09-27 05:26] VITALS: PULSE 78; RESP 20
--- NOTE | 2018-09-27 05:34 | ERD ---
ER Documentation Chief Complaint Chief Complaint flu-liked symptoms(fever,sore throat,cough,colds,congestion)x 4 days HPI 32-year-old male presenting with flulike symptoms. Patient has had a sore throat with runny nose and congestion. Patient has had no fevers and has not taken medication today. Patient is also complaining of right hand pain and right toe pain after a work-related injury. He states that something heavy fell on his hand and foot at work. Right-hand dominant. 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 Denies medical problems. NKDA. Surgical history is knee surgery, umbilical hernia repair and shoulder surgery. Social history smokes 4 cigarettes a day. ROS All systems reviewed and are negative except as per history of present illness. Medications Home Meds Active Scripts Pseudoephedrine Hcl* (Suphedrin*) 30 Mg Tablet, 30 MG PO Q6 PRN for CONGESTION, #30 TAB Prov:MICHELLE LANDRUM PA-C 09/27/18 Promethazine Hcl* (Promethazine Hcl* Syrup) 6.25 Mg/5 Ml Syrup, 6.25 MG PO Q6H PRN for COUGH, #100 ML Prov:MICHELLE LANDRUM PA-C 09/27/18 Ibuprofen* (Motrin*) 800 Mg Tab, 800 MG PO Q6, #30 TAB Prov:MICHELLE LANDRUM PA-C 09/27/18 Ibuprofen* (Motrin*) 600 Mg Tab, 600 MG PO Q6H PRN for PAIN AND OR ELEVATED TEMP, #30 TAB Prov:MARLON CUELLAR NP 09/01/18 Tramadol HCl (Tramadol HCl) 50 Mg Tablet, 50 MG PO Q4 PRN for PAIN, #20 TAB Prov:HERMILA BUNN 08/27/18 Doxycycline Hyclate* (Doxycycline Hyclate*) 100 Mg Tablet., 100 MG PO BID for 10 Days, TAB Prov:HERMILA BUNN 08/27/18 Ibuprofen* (Motrin*) 600 Mg Tab, 600 MG PO Q6H PRN for PAIN AND OR ELEVATED TEMP, #20 TAB Prov:EB DENNIS MD 07/09/18 Reported Medications Hydrocodone/Acetaminophen ([place] 10-325 Tablet) 1 Each Tablet, 1 EACH PO TID PRN for NEEDED, TAB 07/09/18 Allergies Allergies: Coded Allergies: No Known Allergy (Verified , 07/09/18) NKA PER SDS PRE-OP ORDER SHEET 06/11/11 PMhx/Soc History of Surgery: Yes (Ortho Surg, UmbilicalHernia) Anesthesia Reaction: No Hx Neurological Disorder: No Hx Respiratory Disorders: No Hx Cardiac Disorders: No Hx Psychiatric Problems: No Hx Miscellaneous Medical Probl: No Hx Alcohol Use: Yes (Social) Hx Substance Use: Yes (Marijuana) Hx Tobacco Use: Yes Smoking Status: Current every day smoker FmHx Family History: No diabetes, No coronary disease, No other Physical Exam Vitals Vital Signs Date Temp Pulse Resp B/P (MAP) Pulse Ox O2 O2 Flow FiO2 Time Delivery Rate 09/27/18 98.8 78 20 98 Room Air 05:26 09/27/18 97.9 95 18 140/90 100 03:36 (107) Physical Exam GENERAL: The patient is well-appearing, well-nourished, in no acute distress HEENT: Atraumatic. Conjunctivae are pink. Pupils equal, round, and reactive to light. There is no scleral icterus. Tympanic membranes clear bilaterally. Oropharynx clear. No nystagmus or photophobia. CHEST: Clear to auscultation bilaterally. There are no rales, wheezes or rhonchi. HEART: Regular rate and rhythm. No murmurs, clicks, rubs or gallops. No S3 or S4. EXTREMITIES: Tender to palpation to right hand with no obvious deformity. Norm al range of motion of all digits. No swelling. NEUROLOGIC: Motor strength in all 4 extremities with 5 out of 5 strength. Sensa tion grossly intact. SKIN: There is no apparent rash or petechiae. The skin is warm and dry. Procedures/MDM DIAGNOSTIC IMAGING REPORT Patient: TIMBO DUMONT : 1985 Age: 32 Sex: M MR #: [id number] DOS: 09/27/18 0408 Ordering MD: ROSENDA LANDRUM PA-C Location: [facility] Room/Bed: PROCEDURE: XR right Foot. CLINICAL INDICATION: Pain TECHNIQUE: 3 views of the right foot were obtained. COMPARISON: None. FINDINGS: Osseous mineralization appears normal. There is no acute fracture. Alignment is maintained. Joint spaces are maintained without hypertrophic or erosive changes. No radiopaque foreign body. IMPRESSION: No definite acute fracture or dislocation. DIAGNOSTIC IMAGING REPORT Patient: TIMBO DUMONT : 1985 Age: 32 Sex: M MR #: [id number] DOS: 09/27/18 0408 Ordering MD: ROSENDA LANDRUM PA-C Location: [facility] Room/Bed: PROCEDURE: Right hand x-ray CLINICAL INDICATION: Pain TECHNIQUE: AP, lateral and oblique views of the right hand were obtained. COMPARISON: None FINDINGS: No definite fracture or dislocation is seen. Bone mineralization is preserved. No marked degenerative change. No abnormal soft tissue calcifications. Smoothly marginated deformity of the second distal phalangeal tuft that may be congenital or on the basis of remote injury. IMPRESSION: No definite acute bony abnormality. MDM: 32-year-old male presenting with URI type symptoms. I have low suspicion for pneumonia. I have low suspicion for meningitis or sepsis. I do not feel patient requires antibiotics. I have low suspicion for acute fracture dislocation. Patient's x-rays are within normal limits and exam is non- concerning. Patient is discharged strict ER precautions and told to follow-up with primary care within 1-2 days for close evaluation. Patient is discharged with supportive medications. All questions answered at discharge Departure Diagnosis: Primary Impression: Upper respiratory infection Condition: Stable Patient Instructions: Uri, Viral, No Abx (Adult) Referrals: [facility] YOU HAVE RECEIVED A MEDICAL SCREENING EXAM AND THE RESULTS INDICATE THAT YOU DO NOT HAVE A CONDITION THAT REQUIRES URGENT TREATMENT IN THE EMERGENCY DEPARTMENT. FURTHER EVALUATION AND TREATMENT OF YOUR CONDITION CAN WAIT UNTIL YOU ARE SEEN IN YOUR DOCTORS OFFICE WITHIN THE NEXT 1-2 DAYS. IT IS YOUR RESPONSIBILITY TO MAKE AN APPOINTMENT FOR FOLOW-UP CARE. IF YOU HAVE A PRIMARY DOCTOR --you should call your primary doctor and schedule an appointment IF YOU DO NOT HAVE A PRIMARY DOCTOR YOU CAN CALL OUR PHYSICIAN REFERRAL HOTLINE AT IF YOU CAN NOT AFFORD TO SEE A PHYSICIAN YOU CAN CHOSE FROM THE FOLLOWING [facility] [address] [facility]. [facility] [address] [facility] [address] [facility]. [facility] [address] [facility]. [facility] [address] [facility]. [facility] [address] Additional Instructions: FOLLOW UP WITH YOUR PRIMARY CARE PHYSICIAN TOMORROW.Return to this facility if you are not improving as expected. MICHELLE LANDRUM PA-C Sep 27, 2018 05:34
== END 2018-09-27 05:20 | disposition home or self-care (01) ==
LOC: FTE 03:34
DX: J06.9 Acute upper respiratory infection, unspecified (principal); F17.210 Nicotine dependence, cigarettes, uncomplicated
CPT/HCPCS: 73130; 73630; 87400; Z7502

== ENCOUNTER 2018-11-02 21:44 | Emergency (ER) | payer OTHER ==
[~2018-11-02] VITALS: Wt 149.8 kg
[~2018-11-02 21:44] MED LIST changes: +CYCL10TA7 PO; -DOXY100T20 PO; +NAPR-985 PO; -TRAM50TA2 PO
[2018-11-03] MEDS ORDERED: KETOROLAC 30 MG INJ IV STA (03:14)
[2018-11-03] MEDS ORDERED: IBUP-1542 PO (03:17)
[2018-11-03] MEDS ORDERED: CYCL10TA7 PO (03:17)
[2018-11-03 03:53] VITALS: BP 115/57; PULSE 72; RESP 16
--- NOTE | 2018-11-23 00:18 | ERD ---
ER Documentation Chief Complaint Chief Complaint L sided CP "pressure" 10/10 [id number]; MORA since 1900. HPI Is a 33-year-old male comes in with complaints of reproducible left-sided chest pain started 30 minutes ago. He also complains of associated headache. Patient has been under significant amounts of stress. He has suffered from multiple panic attacks in the past. This feels similar to previous episodes. Pain mild to moderate intensity. No other current complaints. ROS All systems reviewed and are negative except as per history of present illness. Medications Home Meds Active Scripts Cyclobenzaprine Hcl* (Cyclobenzaprine Hcl*) 10 Mg Tablet, 10 MG PO TID, #15 TAB Prov:HERMILA BUNN 11/03/18 Ibuprofen* (Motrin*) 600 Mg Tab, 600 MG PO Q6H PRN for PAIN AND OR ELEVATED TEMP, #20 TAB Prov:HERMILA BUNN SConchis 11/03/18 Reported Medications Hydrocodone/Acetaminophen ([place] 10-325 Tablet) 1 Each Tablet, 1 EACH PO TID PRN for NEEDED, TAB 07/09/18 Allergies Allergies: Coded Allergies: No Known Allergy (Verified , 11/03/18) NKA PER [facility] PRE-OP ORDER SHEET 06/11/11 PMhx/Soc History of Surgery: Yes (Ortho Surg, UmbilicalHernia) Anesthesia Reaction: No Hx Neurological Disorder: No Hx Respiratory Disorders: No Hx Cardiac Disorders: No Hx Psychiatric Problems: No Hx Miscellaneous Medical Probl: No Hx Alcohol Use: Yes (Social) Hx Substance Use: Yes (Marijuana) Hx Tobacco Use: Yes Physical Exam Physical Exam Const: No acute distress Head: Atraumatic Eyes: Normal Conjunctiva ENT: Normal External Ears, Nose and Mouth. Neck: Full range of motion. No meningismus. Resp: Clear to auscultation bilaterally Cardio: Regular rate and rhythm, no murmurs Abd: Soft, non tender, non distended. Normal bowel sounds Skin: No petechiae or rashes Back: No midline or flank tenderness Ext: No cyanosis, or edema Neur: Awake and alert Psych: Normal Mood and Affect Results 24 hrs Laboratory Tests Test 11/03/18 01:38 White Blood Count 9.3 10^3/ul Red Blood Count 4.96 10^6/ul Hemoglobin 15.6 g/dl Hematocrit 46.3 % Mean Corpuscular Volume 93.3 fl Mean Corpuscular Hemoglobin 31.5 pg Mean Corpuscular Hemoglobin Concent 33.7 g/dl Red Cell Distribution Width 12.6 % Platelet Count 246 10^3/UL Mean Platelet Volume 9.1 fl Immature Granulocytes % 0.600 % Neutrophils % 53.0 % Lymphocytes % 36.0 % Monocytes % 9.9 % Eosinophils % 0.1 % Basophils % 0.4 % Nucleated Red Blood Cells % 0.0 /100WBC Immature Granulocytes # 0.060 10^3/ul Neutrophils # 4.9 10^3/ul Lymphocytes # 3.4 10^3/ul Monocytes # 0.9 10^3/ul Eosinophils # 0.0 10^3/ul Basophils # 0.0 10^3/ul Nucleated Red Blood Cells # 0.0 10^3/ul Sodium Level 141 mmol/L Potassium Level 4.1 mmol/L Chloride Level 110 mmol/L Carbon Dioxide Level 27 mmol/L Anion Gap 4 Blood Urea Nitrogen 11 mg/dl Creatinine 0.73 mg/dl Est Glomerular Filtrat Rate mL/min > 60 mL/min Glucose Level 102 mg/dl Calcium Level 9.2 mg/dl Total Bilirubin 0.4 mg/dl Direct Bilirubin 0.00 mg/dl Indirect Bilirubin 0.4 mg/dl Aspartate Amino Transf (AST/SGOT) 29 IU/L Alanine Aminotransferase (ALT/SGPT) 47 IU/L Alkaline Phosphatase 85 IU/L Troponin I < 0.012 ng/ml B-Type Natriuretic Peptide 33 PG/ML Total Protein 7.7 g/dl Albumin 4.0 g/dl Globulin 3.70 g/dl Albumin/Globulin Ratio 1.08 Current Medications Medications Dose Sig/Yuki Start Time Status Last (Trade) Ordered Route PRN Stop Time Admin Dose Reason Admin Ketorolac 30 mg ONCE STAT 11/03/18 DC 11/03/18 Tromethamine IV 03:14 03:17 (Toradol) 11/03/18 03:15 Procedures/MDM EKG: Rate/Rhythm: [Normal Sinus Rhythm] QRS, ST, T-waves: [No changes consistent w/ acute ischemia] Impression: [No evidence of ischemia or arrhythmia] Chest X-ray 1V Interpreted by me: Soft Tissue: No acute abnormalit ies Bones: No acute abnormalities Mediastinum/Cardiac Silhouette/Lungs: [No acute abnormalities] Medical decision making: Patient's thoracic symptoms have stabilized while in the department and are stable for outpatient follow up. Exam and work up not consistent w/ ischemia, arrhythmia, PE or dissection. Departure Diagnosis: Primary Impression: Chest pain Condition: Stable Patient Instructions: Anxiety Reaction, Chest Pain, Uncertain Cause HERMILA BUNN Nov 23, 2018 00:18
== END 2018-11-03 04:36 | disposition home or self-care (01) ==
LOC: E/R 21:44
DX: R07.9 Chest pain, unspecified (principal); Z87.891 Personal history of nicotine dependence
CPT/HCPCS: 71045; 80053; 83880; 84484; 85025; 93005; J1885; 36415; 96374

== ENCOUNTER 2018-12-11 22:59 | Observation (INO) | payer OTHER ==
[~2018-12-11] VITALS: Ht 177.8 cm; Wt 159.2 kg
[~2018-12-11 22:59] MED LIST changes: -NAPR-985 PO
[2018-12-11] MEDS ORDERED: morphine 4 MG/ML VIAL IV STA (23:43)
[2018-12-11] MEDS ORDERED: ASPIRIN 325 MG TAB PO STA (23:43)
[2018-12-11] MEDS ORDERED: NITROGLYCERIN 2% 1 GM OINT PKT TD STA (23:43)
[2018-12-11] MEDS ORDERED: ONDANSETRON 4 MG INJ IV STA (23:43)
[2018-12-12] VITALS (12 sets, daily range): BP systolic 95–131; BP diastolic 45–67; PULSE 60–79; RESP 18–20; Ht 177.8 cm; Wt 159.2 kg
[2018-12-12] MEDS ORDERED: ACETAMINOPHEN 325 MG TAB PO PRN ×2 (02:30→05:00)
[2018-12-12] MEDS ORDERED: ONDANSETRON 4 MG INJ IV PRN ×2 (02:30→05:00)
--- NOTE | 2018-12-12 04:19 | ERD ---
ER Documentation Chief Complaint Chief Complaint C/O CP, L NECK PAIN, SOB X'S 1 DAY HPI 33-year-old gentleman history of morbid obesity, prior history of possible carotid stenosis or thrombosis not currently anticoagulated. Patient presents to the emergency room with chest pain and shortness of breath for approximately 24 hours. He describes it as pressure-like, left-sided radiating up to his shoulder and jaw. He denies any pleuritic pain fevers chills or cough. Pain is mild at this time, 2 out of 10. ROS All systems reviewed and are negative except as per history of present illness. Medications Home Meds Active Scripts Cyclobenzaprine Hcl* (Cyclobenzaprine Hcl*) 10 Mg Tablet, 10 MG PO TID, #15 TAB Prov:HERMILA BUNN 11/03/18 Ibuprofen* (Motrin*) 600 Mg Tab, 600 MG PO Q6H PRN for PAIN AND OR ELEVATED TEMP, #20 TAB Prov:HERMILA BUNN 11/03/18 Reported Medications Hydrocodone/Acetaminophen ([place] 10-325 Tablet) 1 Each Tablet, 1 EACH PO TID PRN for NEEDED, TAB 07/09/18 Allergies Allergies: Coded Allergies: No Known Allergy (Unverified , 12/12/18) NKA PER SDS PRE-OP ORDER SHEET 06/11/11 PMhx/Soc History of Surgery: Yes (Ortho Surg, UmbilicalHernia) Anesthesia Reaction: No Hx Neurological Disorder: No Hx Respiratory Disorders: No Hx Cardiac Disorders: No Hx Psychiatric Problems: No Hx Miscellaneous Medical Probl: No Hx Alcohol Use: Yes (Social) Hx Substance Use: Yes (Marijuana) Hx Tobacco Use: Yes Smoking Status: Current every day smoker FmHx Family History: coronary disease; No diabetes Physical Exam Vitals Vital Signs Date Temp Pulse Resp B/P (MAP) Pulse Ox O2 O2 Flow FiO2 Time Delivery Rate 12/12/18 81 17 136/86 97 Room Air 00:52 (103) 12/11/18 99.6 99 18 151/91 99 23:04 (111) Physical Exam General: Well developed, well nourished, no acute distress Head: Normocephalic, atraumatic. Eyes: Pupils equally reactive, EOM intact ENT: Moist mucous membranes Neck: Supple, no lymphadenopathy Respiratory: Lungs clear bilaterally, no distress Cardiovascular: RRR, no murmurs, rubs, or gallops Abdominal: Soft, non-tender, non-distended, no peritoneal signs : Deferred MSK: No edema, no unilateral swelling, 5/5 strength Neurologic: Alert and oriented, moving all extremities, normal speech, no focal weakness, no cerebellar signs Skin: No rash Psych: Normal mood Result Diagram: 12/11/18 2341 12/11/18 2341 Results 24 hrs Laboratory Tests Test 12/11/18 23:41 White Blood Count 8.9 10^3/ul Red Blood Count 5.29 10^6/ul Hemoglobin 16.7 g/dl Hematocrit 48.9 % Mean Corpuscular Volume 92.4 fl Mean Corpuscular Hemoglobin 31.6 pg Mean Corpuscular Hemoglobin Concent 34.2 g/dl Red Cell Distribution Width 12.7 % Platelet Count 273 10^3/UL Mean Platelet Volume 9.3 fl Immature Granulocytes % 0.300 % Neutrophils % 61.9 % Lymphocytes % 29.4 % Monocytes % 7.9 % Eosinophils % 0.1 % Basophils % 0.4 % Nucleated Red Blood Cells % 0.0 /100WBC Immature Granulocytes # 0.030 10^3/ul Neutrophils # 5.5 10^3/ul Lymphocytes # 2.6 10^3/ul Monocytes # 0.7 10^3/ul Eosinophils # 0.0 10^3/ul Basophils # 0.0 10^3/ul Nucleated Red Blood Cells # 0.0 10^3/ul Sodium Level 144 mmol/L Potassium Level 3.9 mmol/L Chloride Level 102 mmol/L Carbon Dioxide Level 28 mmol/L Anion Gap 14 Blood Urea Nitrogen 12 mg/dl Creatinine 0.60 mg/dl Est Glomerular Filtrat Rate mL/min > 60 mL/min Glucose Level 132 mg/dl Calcium Level 9.2 mg/dl Troponin I < 0.012 ng/ml Current Medications Medications Dose Sig/Yuki Start Time Status Last (Trade) Ordered Route PRN Stop Time Admin Dose Reason Admin Aspirin 325 mg ONCE STAT 12/11/18 DC 12/12/18 (Aspirin) PO 23:43 00:01 12/11/18 23:45 1 inch ONCE STAT 12/11/18 DC 12/12/18 Nitroglycerin TD 23:43 00:19 12/11/18 23:45 (Nitroglyceri n 2% Oint) Morphine 4 mg ONCE STAT 12/11/18 DC 12/12/18 Sulfate IV 23:43 00:01 (morphine) 12/11/18 23:45 Ondansetron 4 mg ONCE STAT 12/11/18 DC 12/12/18 HCl (Zofran IV 23:43 00:01 Inj) 12/11/18 23:45 Procedures/MDM EKG, MONITORS, & DIAGNOSTIC IMAGING: EKG: I reviewed and interpreted a 12-lead EKG. Rhythm: Normal sinus rhythm ST Changes: No contiguous ST segment elevations T waves: No contiguous T wave inversions Impression: [No evidence of acute cardiac ischemia] Repeat EKG: EKG: I reviewed and interpreted a 12-lead EKG. Rhythm: Normal sinus rhythm ST Changes: No contiguous ST segment elevations T waves: No contiguous T wave inversions Impression: [No evidence of acute cardiac ischemia] Chest x-ray: I reviewed and interpreted a 1 view of the chest Mediastinum: No enlargement Cardiac silhouette: No cardiomegaly Airspace: Clear lung white bilaterally without evidence of pneumothorax Bones: No evidence of fracture PROCEDURES: [None] LAB INTERPRETATION: Negative troponin MEDICAL DECISION MAKING: The patient's history, physical exam and clinical presentation is concerning for possible cardiogenic etiology and acute coronary syndrome. Based on the patient's clinical exam and history and risk factors, I have a much lower clinical concern for pulmonary embolism, acute aortic dissection, pneumothorax, pneumonia, cardiac tamponade HEART Score: 3 MACE Rate: 1.7% Shared Decision Making: We had a conversation regarding risk stratification, MACE rate, and the risks, benefits, alternatives of disposition planning options. Disposition planning: Admission ER COURSE: * Aspirin nitro morphine provided with improved chest pain. * While the patient is young he has multiple risk factors including obesity, smoking and I would recommend inpatient hospitalization for further workup. * The patient additionally describes some robotic process in the past placing him at increased risk. CONSULTATION: [None] DISPOSITION PLAN: Telemetry admission for management of chest pain to rule out acute coronary syndrome, serial enzymes, risk stratification and consideration of provocative testing CONSULTATION: Accepting care team and consultations: I discussed the current laboratory data, diagnostic imaging and emergency care provided. Admitting team: Dr. Thompson Admitting team indication: Insurance directed Departure Diagnosis: Primary Impression: Chest pain Chest pain type: unspecified Qualified Codes: R07.9 - Chest pain, unspecified Condition: Stable SILVIA FRENCH MD Dec 12, 2018 04:19
[2018-12-12] MEDS ORDERED: morphine 2 MG INJ IV PRN (04:41)
[2018-12-12] MEDS ORDERED: IBUPROFEN 600 MG TAB PO PRN (05:00)
[2018-12-12] MEDS ORDERED: HYDROCODONE/APAP (10/325) TAB PO PRN (05:00)
[2018-12-12] MEDS: ASPIRIN 81 MG TAB PO SCH (08:43)
[2018-12-12] MEDS: CYCLOBENZAPRINE 10 MG TAB PO SCH ×3 (08:43→20:37)
--- NOTE | 2018-12-12 12:48 | HP ---
JIMMY RAMESH 12/12/18 1248: Date/Time of Note Date/Time of Note DATE: 12/12/18 TIME: 12:48 Assessment/Plan VTE [place] [facility] [place]: 1 [place] [facility] [place] No SCD contraindicated: low risk/ambulating Pharmacological prophylaxis: NA/contraindicated Pharm contraindication: low risk/ambulating Lines/Catheters IV [facility]from [facility] Saline Lock Assessment/Plan Hospital Course 1. Chest pain r/out RAVI. telemetry sows normal sinus rhythm, no ST changes. 2. Morbid obesity 3. Hx of bilateral knee arthritis, s/p left knee surgery 2010 4. fatty liver 5. Diverticulosis 6. Right shoulder surgery 2000 7. Nicotine dependence Assessment/Plan -tele _US carotid _CT scan neck -Dr Ferrell for cardiology consult -trop neg -DVT prophylaxis amb -GI prophylaxis start Protonix -chest Xray : No acute air space infiltrates. Result Diagram: 12/11/18 2341 12/11/18 2341 Results 24hrs Laboratory Tests Test 12/11/18 23:41 12/12/18 05:28 12/12/18 10:52 White Blood Count 8.9 Red Blood Count 5.29 Hemoglobin 16.7 Hematocrit 48.9 Mean Corpuscular Volume 92.4 Mean Corpuscular Hemoglobin 31.6 Mean Corpuscular Hemoglobin Concent 34.2 Red Cell Distribution Width 12.7 Platelet Count 273 Mean Platelet Volume 9.3 Immature Granulocytes % 0.300 Neutrophils % 61.9 Lymphocytes % 29.4 Monocytes % 7.9 Eosinophils % 0.1 Basophils % 0.4 Nucleated Red Blood Cells % 0.0 Immature Granulocytes # 0.030 Neutrophils # 5.5 Lymphocytes # 2.6 Monocytes # 0.7 Eosinophils # 0.0 Basophils # 0.0 Nucleated Red Blood Cells # 0.0 Sodium Level 144 Potassium Level 3.9 Chloride Level 102 Carbon Dioxide Level 28 Anion Gap 14 H Blood Urea Nitrogen 12 Creatinine 0.60 L Est Glomerular Filtrat Rate mL/min > 60 Glucose Level 132 Calcium Level 9.2 Troponin I < 0.012 < 0.012 < 0.012 Creatine Kinase 58 49 Creatine Kinase Index 0.6 0.7 Creatinine Kinase MB (Mass) 0.37 0.32 HPI/ROS Admit Date/Time Admit Date/Time Dec 12, 2018 at 02:06 Hx of Present Illness This 33-year-old gentleman with history of morbid obesity and recurrent neck pain. Patient presents to the emergency room with chest pain and shortness of breath for approximately 24 hours. He describes it as pressure-like, left-sided radiating up to his shoulder and jaw. He denies any pleuritic pain fevers chills or cough. Pain is mild at this time, 2 out of 10. There were previous ER visits with similar reasons. Pt was given muscle relaxant or Toradol injections and pain was relieved. Pt report history of left knee trauma with surgery [address] [address] ma about prior history of possible carotid stenosis or thrombosis not currently anticoagulated. This part of information was not found in patient medical record ROS denied all symptoms Constitutional: no complaints, improved PMH/Family/Social Past Medical History Medical History: other (bilateral knee arthritis) Medications Current Medications Ondansetron HCl (Zofran Inj) 4 mg ER BRIDGE PRN IV NAUSEA/VOMITING; Start 12/12/18 at 02:30; Stop 12/13/18 at 02:29 Acetaminophen (Tylenol Tab) 650 mg ER BRIDGE PRN PO .MILD PAIN 1-3 OR TEMP; Start 12/12/18 at 02:30; Stop 12/13/18 at 02:29 Morphine Sulfate (morphine) 2 mg Q4H PRN IV SEVERE PAIN LEVEL 7-10 Last administered on 12/12/18at 04:54; Admin Dose 2 MG; Start 12/12/18 at 04:41 Acetaminophen (Tylenol Tab) 650 mg Q6H PRN PO MILD PAIN(1-3)OR ELEVATED TEMP; Start 12/12/18 at 05:00 Ibuprofen (Motrin) 600 mg Q6H PRN PO MILD PAIN LEVEL 1-3; Start 12/12/18 at 05:00 Acetaminophen/ Hydrocodone Bitart ([place] (10/325)) 1 tab Q6H PRN PO MODERATE PA IN LEVEL 4-6 Last administered on 12/12/18at 07:58; Admin Dose 1 TAB; Start 12/12/18 at 05:00 Cyclobenzaprine HCl (Flexeril) 10 mg TID PO Last administered on 12/12/18at 12:34; Admin Dose 10 MG; Start 12/12/18 at 09:00 Ondansetron HCl (Zofran Inj) 4 mg Q4H PRN IV NAUSEA AND/OR VOMITING; Start 12/12/18 at 05:00 Aspirin (Aspirin) 81 mg DAILY PO Last administered on 12/12/18at 08:43; Admin Dose 81 MG; Start 12/12/18 at 09:00 Coded Allergies: No Known Allergy (Unverified , 12/12/18) NKA PER [facility] PRE-OP ORDER SHEET 06/11/11 Past Surgical History Past Surgical Hx: other (left knee trauma with surgery 2010. right shoulder surgery 1001) Family History Significant Family History: no pertinent family hx Social History Alcohol Use: none Smoking Status: Current every day smoker Drug Use: none Exam/Review of Systems Vital Signs Vitals Vital Signs Date Temp Pulse Resp B/P (MAP) Pulse Ox O2 O2 Flow FiO2 Time Delivery Rate 12/12/18 63 12:15 12/12/18 97.6 18 110/55 98 Room Air 11:26 (73) Intake and Output 12/11/18 12/11/18 12/12/18 1515:00 23:00 07:00 IntakeIntake Total 400 ml BalanceBalance 400 ml Exam Constitutional: alert, oriented Psych: no complaints Head: normocephalic Neck: other (no carotid bruit) Respiratory: clear to auscultation Cardiovascular: regular rate and rhythm Gastrointestinal: soft Musculoskeletal: joint tenderness (bilateral knees) GIANFRANCO RAYMOND MD 12/12/18 1649: Assessment/Plan Assessment/Plan Assessment/Plan 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
--- NOTE | 2018-12-12 15:40 | CONS ---
DATE OF ADMISSION: 12/12/2018 DATE OF CONSULTATION: 12/12/2018 REASON FOR CONSULTATION: Chest pain, assess for acute coronary syndrome. REQUESTING PHYSICIAN: Malcolm Burrell MD HISTORY OF PRESENT ILLNESS: Mr. Carmichael is a 33-year-old male with a history of morbid obesity, fatty liver, degenerative joint disease of the knee, nicotine dependence, prior shoulder surgery, diverticulosis who presented with neck pain, stabbing, radiating down to his chest of onset x1 day. Upon arrival, temperature 99.6, blood pressure 141/91, pulse 90, respiratory rate 18, sat 99%. The patient's labs revealed a white count of 8.9, a hemoglobin of 16.7, a platelet count 273, a sodium 144, potassium 3.9, creatinine 0.6, BUN 12. Troponin negative. The patient with a chest x-ray revealing no acute cardiopulmonary abnormalities. The patient's electrocardiogram revealed normal sinus rhythm, rate 95, normal axis with nonspecific ST-T abnormalities. The patient subsequently admitted to the floor and since admitted to the floor, has had improvement in chest pain and neck pain. He has had negative troponins x3. PAST MEDICAL HISTORY: As above in HPI. MEDICATIONS CURRENTLY IN HOSPITAL: 1. Protonix. 2. Flexeril. 3. Aspirin 81 daily. 4. Tylenol. 5. Motrin. 6. Zofran p.r.n. 7. Morphine p.r.n. ALLERGIES: NO KNOWN DRUG ALLERGIES. SOCIAL HISTORY: Positive tobacco, no ETOH or illicit drug use. FAMILY HISTORY: No sudden cardiac or early CAD. REVIEW OF SYSTEMS: As above in HPI. CONSTITUTIONAL: No fevers, chills. PULMONARY: No shortness of breath. CARDIOVASCULAR: Chest pain, now resolved. GASTROINTESTINAL: No vomiting. GENITOURINARY: No hematuria. MUSCULOSKELETAL: Neck pain. PSYCHIATRIC: No documented psych history. NEUROLOGIC: No documented history of CVA. ENDOCRINE: No documented history of diabetes mellitus. PHYSICAL EXAMINATION: VITAL SIGNS: Temperature 98.2, blood pressure 119/67, pulse of 79, respiratory rate 18, satting 98%. GENERAL: The patient is alert, awake, in no acute distress. NECK: JVP approximately 8 to 9 cm of water. CHEST: Fair air movement throughout. HEART: Regular rate and rhythm. Normal S1, S2, I/ systolic murmur, nondisplaced PMI. ABDOMEN: Positive bowel sounds, soft, obese. EXTREMITIES: No pitting edema, 1+ pulses bilateral posterior tibial. LABORATORY DATA: Most recently from today, troponins negative times total of 3, 4 hours apart. IMAGING STUDIES: As above in HPI. No further imaging studies for my review at this time. ECG: As above in HPI. No further electrocardiogram for my review at this time. IMPRESSION: 1. Chest pain, assess for acute coronary syndrome with somewhat atypical symptomatology for cardiac etiology. At this time, his last electrocardiogram with diffuse nonspecific ST abnormalities with negative troponins x3. 2. Hypotension, borderline and labile. 3. Obesity. 4. Neck pain. RECOMMENDATIONS: 1. At this time, would send 1 additional troponin to assure the patient's neck pain and chest pain were not due to any acute coronary ischemia or infarction. 2. Would check serial EKGs, assess for ongoing changes. 3. Repeat EKG today post rule out. EKG for any complaints of chest pain or change in rhythm. 4. Check a fasting lipid panel for general risk stratification and initiate if necessary. 5. Will give patient sublingual nitroglycerin for any recurrent episodes of chest pain. 6. Follow up the patient's 2D echo for assessment of ejection fraction, wall motion and any major abnormalities. Thank you for allowing me to take part in the care of this patient. I will continue to follow along very closely with you with further recommendations to be made as the patient progresses through his inpatient hospital clinical course. Dictated By: PETAR HAMMER/ROBERTO Conf#: [id number] DID#: [id number] CC: MALCOLM BURRELL MD; GIANFRANCO RAYMOND;*EndCC* MTDD
--- NOTE | 2018-12-12 17:08 | RADRPT ---
Echocardiogram Report Patient Name: NITA DUMONTTOPatient ID: [id number] : 1985 (33y 1m)Study Date: 12/12/2018 8:11:53 AM Gender: MAccession #: [id number] Tech: Ondina Rendon [facility] Location: [facility] Ref.Physician: GIANFRANCO RAYMOND Height(Cm): BSA: Weight(Kg): Quality: Technically Difficult StudyAccount #: Procedures: Echocardiographic Report: Transthoracic echocardiogram with complete 2D, M-Mode, and doppler examination. Indications: Chest Pain. Measurements: 2D/M Mode Doppler Measurement Value Normal Range Measurement Value Normal Range LVIDd 2D 4.0 [ 4.2 - 5.8 ] cm AV Peak Desmond 0.9 [ 100.0 - 170.0 ] cm/se c LVIDs 2D 2.7 [ 2.5 - 4.0 ] cm AV Peak PG 4.0 [ 2.0 - 9.0 ] mmHg LVPWd 2D 1.2 [ 0.6 - 1.0 ] cm LVOT Peak Desmond 0.8 [ 70.0 - 110.0 ] cm/sec IVSd 2D 1.1 [ 0.6 - 1.0 ] cm LVOT Peak PG 2.0 [ 2.0 - 6.0 ] mmHg AoR Diam 2D 2.8 [ 2.6 - 3.4 ] cm MV E Peak Desmond 0.7 [ 60.0 - 130.0 ] cm/sec EDV 2D 71.3 [ 62.0 - 150.0 ] ml MV PHT 52.0 [ 20.0 - 100.0 ] msec ESV 2D 25.8 [ 21.0 - 61.0 ] ml MV Decel Time 176 [ 104 - 258 ] msec EF 2D 63.8 [ 52.0 - 72.0 ] percent MV Decel [place] 4 LA Dimen 2D 3.6 [ 3.0 - 4.0 ] cm Med E` Desmond 0.1 cm/sec MVA PHT 4.2 [ 2.0 - 4.0 ] cm2 Findings: Left Ventricle: Normal left ventricular systolic function. Normal left ventricular cavity size. Mild concentric left ventricular hypertrophy. Ejection fraction is visually estimated at 55-60 %. Tissue Doppler/Mitral Doppler indices are within normal limits. Right Ventricle: Normal right ventricular size. Normal right ventricular systolic function. Left Atrium: The left atrium is normal in size. Right Atrium: The right atrium is normal in size. Atrial Septum: Normal atrial septum. Ventricular septum: Normal/intact ventricular septum. Mitral Valve: Normal appearance of the mitral valve. Trace mitral regurgitation. Aortic Valve: Normal appearance of the aortic valve. No aortic regurgitation. Tricuspid Valve: Normal appearance of the tricuspid valve. There is trace tricuspid regurgitation. Pulmonic Valve: Normal pulmonic valve appearance. No evidence of pulmonic regurgitation. Pericardium: Normal pericardium with no significant pericardial effusion. Aorta: Normal aortic root. IVC: The IVC is not well visualized. Conclusions: Normal left ventricular systolic function. Normal left ventricular cavity size. Mild concentric left ventricular hypertrophy. Ejection fraction is visually estimated at 55-60 %. Tissue Doppler/Mitral Doppler indices are within normal limits. Normal appearance of the mitral valve. Trace mitral regurgitation. Normal appearance of the tricuspid valve. There is trace tricuspid regurgitation. Electronically Signed By: Noman Ferrell 2018-12-12 17:08:28 PDT
[2018-12-12] MEDS ORDERED: IOHEXOL 300MG/ML 150 ML BTL ONE (17:16)
[2018-12-12] MEDS ORDERED: SOD CHLORIDE 0.9% 100 ML ONE (17:16)
[2018-12-12] MEDS: NICOTINE (21 MG/24 HR) PATCH TRANSDERM SCH (18:00)
[2018-12-13 00:34] VITALS: PULSE 86
[2018-12-13 03:32] VITALS: BP 127/73; PULSE 69; RESP 19
[2018-12-13 04:12] VITALS: PULSE 63
[2018-12-13] MEDS ORDERED: PANTOPRAZOLE (EC) 40 MG TAB PO SCH (06:00)
[2018-12-13 07:30] VITALS: BP 118/70; PULSE 63; RESP 18
[2018-12-13 08:08] VITALS: PULSE 65
[2018-12-13] MEDS: CYCLOBENZAPRINE 10 MG TAB PO SCH (08:21)
[2018-12-13] MEDS: ASPIRIN 81 MG TAB PO SCH (08:21)
[2018-12-13] MEDS: NICOTINE (21 MG/24 HR) PATCH TRANSDERM SCH (08:21)
--- NOTE | 2018-12-13 10:10 | PN ---
Date/Time of Note Date/Time of Note DATE: 12/13/18 TIME: 10:09 Assessment/Plan VTE Prophylaxis Risk score (from Ns)>0 risk: 1 SCD applied (from Ns): No SCD contraindicated: low risk/ambulating Pharmacological prophylaxis: NA/contraindicated Pharm contraindication: low risk/ambulating Lines/Catheters IV [facility]from [facility] Saline Lock Assessment/Plan Hospital Course 1. Chest pain r/out RAVI. Telemetry sows normal sinus rhythm, no ST changes. 2. Morbid obesity 3. Hx of bilateral knee arthritis, s/p left knee surgery 2010 4. fatty liver 5. Diverticulosis 6. Right shoulder surgery 2000 7. Nicotine dependence 8. On Ct neck: Enlargement of bilateral palatine tonsils results in moderate to severe narrowing of the posterior oropharynx. The apparent narrowing of the oropharyngeal airway could be exaggerated if the patient constricts the pharyngeal constrictor muscles during image acquisition and clinical correlation is required to determine if there is airway compromise. Tonsillar enlargement may be due to generalized lymphoid hyperplasia versus acute tonsillitis. However, the tonsils do not appear inflamed on CT and there is no evidence of abscess. There is also prominence of the lingual tonsil that may be seen with lymphoid hyperplasia. Pt is clinically asymptomatic 9. Mild degenerative disc disease at C5-6 with mild stenosis. 10. Moderate stenosis ( 50 - 69% ) of the left internal carotid artery. Assessment/Plan -c/w ASpirin -outpatient vascular surgeon for Moderate stenosis ( 50 - 69% ) of the left internal carotid artery -start Niacin -dc home Result Diagram: 12/13/18 0516 12/13/18 0515 Results 24hrs Laboratory Tests Test 12/12/18 10:52 12/12/18 14:00 12/13/18 05:15 12/13/18 05:16 Creatine Kinase 49 Creatine Kinase 0.7 Index Creatinine Kinase MB 0.32 (Mass) Troponin I < 0.012 < 0.012 Sodium Level 142 Potassium Level 4.5 Chloride Level 106 Carbon Dioxide Level 29 Anion Gap 7 Blood Urea Nitrogen 10 Creatinine 0.66 Est Glomerular > 60 Filtrat Rate mL/min Glucose Level 85 # Calcium Level 9.3 White Blood Count 8.4 Red Blood Count 5.09 Hemoglobin 15.8 Hematocrit 47.6 Mean Corpuscular 93.5 Volume Mean Corpuscular 31.0 Hemoglobin Mean Corpuscular 33.2 Hemoglobin Concent Red Cell 12.5 Distribution Width Platelet Count 241 Mean Platelet Volume 9.2 Immature 0.500 H Granulocytes % Neutrophils % 59.7 Lymphocytes % 29.5 Monocytes % 9.9 Eosinophils % 0.0 Basophils % 0.4 Nucleated Red Blood 0.0 Cells % Immature 0.040 H Granulocytes # Neutrophils # 5.0 Lymphocytes # 2.5 Monocytes # 0.8 Eosinophils # 0.0 Basophils # 0.0 Nucleated Red Blood 0.0 Cells # Triglycerides Level 100 Cholesterol Level 110 LDL Cholesterol, 64 Calculated HDL Cholesterol 26 L Cholesterol/HDL 4.2 Ratio Thyroid Stimulating 0.620 Hormone (TSH) Exam/Review of Systems Exam Vitals Vital Signs Date Temp Pulse Resp B/P (MAP) Pulse Ox O2 O2 Flow FiO2 Time Delivery Rate 12/13/18 65 08:08 12/13/18 98.0 18 118/70 97 07:30 (86) 12/12/18 Room Air 15:39 Intake and Output 12/12/18 12/12/18 12/13/18 1515:00 23:00 07:00 IntakeIntake Total 940 ml BalanceBalance 940 ml Results Results 24hrs Laboratory Tests Test 12/12/18 10:52 12/12/18 14:00 12/13/18 05:15 12/13/18 05:16 Creatine Kinase 49 Creatine Kinase 0.7 Index Creatinine Kinase MB 0.32 (Mass) Troponin I < 0.012 < 0.012 Sodium Level 142 Potassium Level 4.5 Chloride Level 106 Carbon Dioxide Level 29 Anion Gap 7 Blood Urea Nitrogen 10 Creatinine 0.66 Est Glomerular > 60 Filtrat Rate mL/min Glucose Level 85 # Calcium Level 9.3 White Blood Count 8.4 Red Blood Count 5.09 Hemoglobin 15.8 Hematocrit 47.6 Mean Corpuscular 93.5 Volume Mean Corpuscular 31.0 Hemoglobin Mean Corpuscular 33.2 Hemoglobin Concent Red Cell 12.5 Distribution Width Platelet Count 241 Mean Platelet Volume 9.2 Immature 0.500 H Granulocytes % Neutrophils % 59.7 Lymphocytes % 29.5 Monocytes % 9.9 Eosinophils % 0.0 Basophils % 0.4 Nucleated Red Blood 0.0 Cells % Immature 0.040 H Granulocytes # Neutrophils # 5.0 Lymphocytes # 2.5 Monocytes # 0.8 Eosinophils # 0.0 Basophils # 0.0 Nucleated Red Blood 0.0 Cells # Triglycerides Level 100 Cholesterol Level 110 LDL Cholesterol, 64 Calculated HDL Cholesterol 26 L Cholesterol/HDL 4.2 Ratio Thyroid Stimulating 0.620 Hormone (TSH) Medications Medication Current Medications Morphine Sulfate (morphine) 2 mg Q4H PRN IV SEVERE PAIN LEVEL 7-10 Last adm inistered on 12/12/18 04:54; Admin Dose 2 MG; Start 12/12/18 at 04:41 Acetaminophen (Tylenol Tab) 650 mg Q6H PRN PO MILD PAIN(1-3)OR ELEVATED TEMP; Start 12/12/18 at 05:00 Ibuprofen (Motrin) 600 mg Q6H PRN PO MILD PAIN LEVEL 1-3; Start 12/12/18 at 05:00 Acetaminophen/ Hydrocodone Bitart ([place] (10/325)) 1 tab Q6H PRN PO MODERATE PAIN LEVEL 4-6 Last administered on 12/12/18 07:58; Admin Dose 1 TAB; Start 12/12/18 at 05:00 Cyclobenzaprine HCl (Flexeril) 10 mg TID PO Last administered on 12/13/18 08:21; Admin Dose 10 MG; Start 12/12/18 at 09:00 Ondansetron HCl (Zofran Inj) 4 mg Q4H PRN IV NAUSEA AND/OR VOMITING; Start 12/12/18 at 05:00 Aspirin (Aspirin) 81 mg DAILY PO Last administered on 12/13/18 08:21; Admin Dose 81 MG; Start 12/12/18 at 09:00 Pantoprazole (Protonix Tab) 40 mg DAILY@06 PO Last administered on 12/13/18 06:54; Admin Dose 40 MG; Start 12/13/18 at 06:00 Nicotine (Nicoderm 21 Mg/ 24hr) 1 patch DAILY TRANSDERM Last administered on 12/13/18 08:21; Admin Dose 1 PATCH; Start 12/12/18 at 17:00 JIMMY RAMESH 24, 2019 10:10
--- NOTE | 2018-12-13 10:33 | PDOCDIS ---
Discharge Instructions DIAGNOSIS Discharge Diagnosis C5-C6 degenerative disk disease, neck pain CONDITION [id number] Patient Condition: [id number] Stable ACTIVITY: [id number] Activity Restrictions: [id number] Slowly Increase Activity Rest between Activity FOLLOW UP/APPOINTMENTS Follow-up Plan PCP 1 week outpatient vascular surgeon for left carotid artery moderate stenosis ( 50 - 69% ) CArdiac stress test outpatient, please f.up with PCP JIMMY RAMESH Dec 13, 2018 10:33
[2018-12-13] MEDS ORDERED: NICO-546 TRANSDERM (10:36)
[2018-12-13] MEDS ORDERED: ASPI-817 PO (10:36)
[2018-12-13] MEDS ORDERED: CYCL10TA7 PO (10:36)
--- NOTE | 2018-12-13 10:38 | DS ---
Date/Time of Note Date/Time of Note DATE: 12/13/18 TIME: 10:38 Discharge Summary Admission/Discharge Info Admit Date/Time Dec 12, 2018 at 02:06 Discharge Date/Time Discharge Diagnosis C5-C6 degenerative disk disease, neck pain Patient Condition: Stable Consults Dr Ferrell cardiology Hospital Course This 33-year-old gentleman with history of morbid obesity and recurrent neck pain. Patient presents to the emergency room with chest pain and shortness of breath for approximately 24 hours. He describes it as pressure-like, left-sided radiating up to his shoulder and jaw. He denies any pleuritic pain fevers chills or cough. Pain is mild at this time, 2 out of 10. There were previous ER visits with similar reasons. Pt was given muscle relaxant or Toradol injections and pain was relieved. Pt report history of left knee trauma with surgery 2010. right shoulder surgery 2000 Per ER notes concern about prior history of possible carotid stenosis or thr ombosis not currently anticoagulated. This part of information was not found in patient medical record Admission diagnoses: 1. Chest pain r/out RAVI. Telemetry sows normal sinus rhythm, no ST changes. 2. Morbid obesity 3. Hx of bilateral knee arthritis, s/p left knee surgery 2010 4. fatty liver 5. Diverticulosis 6. Right shoulder surgery 2000 7. Nicotine dependence 8. On Ct neck: Enlargement of bilateral palatine tonsils results in moderate to severe narrowing of the posterior oropharynx. The apparent narrowing of the oropharyngeal airway could be exaggerated if the patient constricts the pharyngeal constrictor muscles during image acquisition and clinical correlation is required to determine if there is airway compromise. Tonsillar enlargement may be due to generalized lymphoid hyperplasia versus acute tonsillitis. However, the tonsils do not appear inflamed on CT and there is no evidence of abscess. There is also prominence of the lingual tonsil that may be seen with lymphoid hyperplasia. Pt is clinically asymptomatic 9. Mild degenerative disc disease at C5-6 with mild stenosis. 10. Moderate stenosis ( 50 - 69% ) of the left internal carotid artery. during hospitalization pt was on Telemetry service. dr Ferrell was called to rule out RAVI. Echocardiogram was normal, On CT scan of neck there was found a moderate stenosis of C-5-C6, that gave patient left side neck pain with irr adiation to jaw. Also was found dyslipidemia and moderate stenosis of left carotid artery. Recommended by dr Ferrell to be continued on Aspirin, to be started on niacin, smoking cessation, and he recommended to d/c patient from cardiac standpoint with outpatient f/u and stress testing. Pt was given muscle relaxants, instructed to follow up with cardiology and vascular surgeon and lose weight. Prior to d/c pt was ambulated, the rhythm was SR, no ST changes and cardiac enzymes were negative. Pt was ambulated and report some neck more than chest pain. All questions were answered. dc diagnoses: 1. Mild degenerative disc disease at C5-6 with mild stenosis with the neck pain and muscle spasm. 2.. Moderate stenosis ( 50 - 69% ) of the left internal carotid artery. 3. morbid obesity 4. Nicotine dependence Home Meds Active Scripts Niacin (Niacin* ER) 500 Mg Tab.er.24h, 500 MG PO DAILY for 30 Days, TAB.SA Prov:JIMMY RAMESH 12/13/18 Nicotine* (Nicotine* Patch) 21 mg/day Patch, 1 PATCH TRANSDERM DAILY for 30 Days Prov:JIMMY RAMESH 12/13/18 Aspirin* (Aspirin* EC) 81 Mg Tablet., 81 MG PO DAILY for 30 Days, TAB Prov:JIMMY RAMESH 12/13/18 Cyclobenzaprine Hcl* (Cyclobenzaprine Hcl*) 10 Mg Tablet, 10 MG PO Q8 PRN for neck spasm for 7 Days, #60 TAB Prov:JIMMY RAMESH 12/13/18 Cyclobenzaprine Hcl* (Cyclobenzaprine Hcl*) 10 Mg Tablet, 10 MG PO TID, #15 TAB Prov:HERMILA BUNN 11/03/18 Ibuprofen* (Motrin*) 600 Mg Tab, 600 MG PO Q6H PRN for PAIN AND OR ELEVATED TEMP, #20 TAB Prov:HERMILA BUNN 11/03/18 Discontinued Reported Medications Hydrocodone/Acetaminophen ([place] 10-325 Tablet) 1 Each Tablet, 1 EACH PO TID PRN for NEEDED, TAB 07/09/18 Follow-up Plan PCP 1 week outpatient vascular surgeon for left carotid artery moderate stenosis ( 50 - 69% ) Primary Care Provider Not On Staff Doctor Time spent on discharge: < 30 minutes Pending Labs Laboratory Tests Test 12/12/18 10:52 12/12/18 14:00 12/13/18 05:15 12/13/18 05:16 Creatine 49 Kinase IU/L (23-200) Creatine Kinase 0.7 Index Creatinine 0.32 Kinase MB ng/ml (0.0-2.4) (Mass) Troponin I < 0.012 < 0.012 ng/ml (0.000-0. ng/ml (0.000-0 120) .120) Sodium Level 142 mmol/L (135-14 4) Potassium 4.5 Level mmol/L (3.5-5. 1) Chloride Level 106 mmol/L (97-110 ) Carbon Dioxide 29 Level mmol/L (21-31) Anion Gap 7 (5-13) Blood Urea 10 Nitrogen mg/dl (7-20) Creatinine 0.66 mg/dl (0.61-1. 24) Est Glomerular > 60 Filtrat mL/min (>60) Rate mL/min Glucose Level 85 mg/dl (70-220) Calcium Level 9.3 mg/dl (8.4-10. 2) White Blood 8.4 Count 10^3/ul (4.8-1 0.8) Red Blood 5.09 Count 10^6/ul (4.70- 6.10) Hemoglobin 15.8 g/dl (14.0-18. 0) Hematocrit 47.6 % (42.0-52.0) Mean 93.5 Corpuscular fl (82.0-101.0 Volume ) Mean 31.0 Corpuscular pg (29.0-33.0) Hemoglobin Mean 33.2 Corpuscular g/dl (32.0-37. Hemoglobin Conc 0) ent Red Cell 12.5 Distribution % (11.5-14.5) Width Platelet Count 241 10^3/UL (140-4 15) Mean Platelet 9.2 Volume fl (7.4-10.4) Immature 0.500 Granulocytes % % (0.001-0.429 ) Neutrophils % 59.7 % (39.0-77.0) Lymphocytes % 29.5 % (15.0-51.0) Monocytes % 9.9 % (0.0-11.0) Eosinophils % 0.0 % (0.0-7.0) Basophils % 0.4 % (0.0-2.0) Nucleated Red 0.0 Blood Cells % /100WBC (0.0-0 .0) Immature 0.040 Granulocytes # 10^3/ul (0.0-0 .031) Neutrophils # 5.0 10^3/ul (1.6-7 .5) Lymphocytes # 2.5 10^3/ul (0.8-2 .9) Monocytes # 0.8 10^3/ul (0.3-0 .9) Eosinophils # 0.0 10^3/ul (0.0-0 .5) Basophils # 0.0 10^3/ul (0.0-0 .1) Nucleated Red 0.0 Blood Cells # 10^3/ul (0.0-0 .0) Triglycerides 100 Level mg/dl (0-149) Cholesterol 110 Level mg/dl (100-200 ) LDL 64 mg/dl Cholesterol, Calculated HDL 26 Cholesterol mg/dl (28-63) Cholesterol/HDL 4.2 RATIO Ratio Thyroid 0.620 Stimulating MIU/L (0.465-4 Hormone (TSH) .680) JIMMY RAMESH Dec 13, 2018 10:38
[2018-12-13] MEDS ORDERED: NIAC500T92 PO (10:41)
--- NOTE | 2018-12-13 13:10 | CONS ---
Assessment/Plan Assessment/Plan Hospital Course (Demo Recall) IMPRESSION: 1. Chest pain, assess for acute coronary syndrome with somewhat atypical symptomatology for cardiac etiology. At this time, his last electrocardiogram with diffuse nonspecific ST abnormalities with negative troponins x3./NL EF by echo 2. Hypotension, borderline and labile.-improved and stable 3. Obesity. 4. Neck pain. 5. L carotid stenosis 50-69% 6. Dyslipidemia-low HDL 26, LDL 64 Recc: -Tele -Continue asa -to be started on niacin -smoking cessation -OK for d/c from cardiac stenpoint with outpatient f/u and stress testing Consultation Date/Type/Reason Admit Date/Time Dec 12, 2018 at 02:06 Initial Consult Date 12/12/18 Type of Consult Cardiology Reason for Consultation chest pain Requesting Provider: ROSANNA BURRELL MD Date/Time of Note DATE: 12/13/18 TIME: 13:05 Exam/Review of Systems Vital Signs Vitals Vital Signs Date Temp Pulse Resp B/P (MAP) Pulse Ox O2 O2 Flow FiO2 Time Delivery Rate 12/13/18 65 08:08 12/13/18 98.0 18 118/70 97 07:30 (86) 12/12/18 Room Air 15:39 Intake and Output 12/12/18 12/12/18 12/13/18 1515:00 23:00 07:00 IntakeIntake Total 940 ml BalanceBalance 940 ml Exam Exam Review of Systems: CONSTITUTIONAL: No fevers, chills. PULMONARY: No sob CARDIOVASCULAR: No chest pain/palpitations GASTROINTESTINAL: No nausea/vomiting. GENITOURINARY: No hematuria/dysuria. MUSCULOSKELETAL: No myagias/arthalgias. PSYCHIATRIC: The patient denies depression. NEUROLOGIC: No weakness Constitutional: alert, oriented Psych: no complaints Head: normocephalic ENMT: mucosa pink and moist Neck: supple, jvd (9 cm water) Respiratory: clear to auscultation Cardiovascular: regular rate and rhythm Gastrointestinal: soft, non-tender Musculoskeletal: muscle tone (normal) Extremities: edema (none) Neurological: other (No focal deficits) Labs Result Diagram: 12/13/18 0516 12/13/18 0515 Results 24hrs Laboratory Tests Test 12/12/18 14:00 12/13/18 05:15 12/13/18 05:16 Troponin I < 0.012 Sodium Level 142 Potassium Level 4.5 Chloride Level 106 Carbon Dioxide Level 29 Anion Gap 7 Blood Urea Nitrogen 10 Creatinine 0.66 Est Glomerular Filtrat Rate mL/min > 60 Glucose Level 85 # Calcium Level 9.3 White Blood Count 8.4 Red Blood Count 5.09 Hemoglobin 15.8 Hematocrit 47.6 Mean Corpuscular Volume 93.5 Mean Corpuscular Hemoglobin 31.0 Mean Corpuscular Hemoglobin Concent 33.2 Red Cell Distribution Width 12.5 Platelet Count 241 Mean Platelet Volume 9.2 Immature Granulocytes % 0.500 H Neutrophils % 59.7 Lymphocytes % 29.5 Monocytes % 9.9 Eosinophils % 0.0 Basophils % 0.4 Nucleated Red Blood Cells % 0.0 Immature Granulocytes # 0.040 H Neutrophils # 5.0 Lymphocytes # 2.5 Monocytes # 0.8 Eosinophils # 0.0 Basophils # 0.0 Nucleated Red Blood Cells # 0.0 Triglycerides Level 100 Cholesterol Level 110 LDL Cholesterol, Calculated 64 HDL Cholesterol 26 L Cholesterol/HDL Ratio 4.2 Thyroid Stimulating Hormone (TSH) 0.620 Medications Medications Current Medications Morphine Sulfate (morphine) 2 mg Q4H PRN IV SEVERE PAIN LEVEL 7-10 Last administered on 12/12/18at 04:54; Admin Dose 2 MG; Start 12/12/18 at 04:41 Acetaminophen (Tylenol Tab) 650 mg Q6H PRN PO MILD PAIN(1-3)OR ELEVATED TEMP; Start 12/12/18 at 05:00 Ibuprofen (Motrin) 600 mg Q6H PRN PO MILD PAIN LEVEL 1-3; Start 12/12/18 at 05:00 Acetaminophen/ Hydrocodone Bitart ([place] (10/325)) 1 tab Q6H PRN PO MODERATE PAIN LEVEL 4-6 Last administered on 12/12/18at 07:58; Admin Dose 1 TAB; Start 12/12/18 at 05:00 Cyclobenzaprine HCl (Flexeril) 10 mg TID PO Last administered on 12/13/18at 08:21; Admin Dose 10 MG; Start 12/12/18 at 09:00 Ondansetron HCl (Zofran Inj) 4 mg Q4H PRN IV NAUSEA AND/OR VOMITING; Start 12/12/18 at 05:00 Aspirin (Aspirin) 81 mg DAILY PO Last administered on 12/13/18at 08:21; Admin Dose 81 MG; Start 12/12/18 at 09:00 Pantoprazole (Protonix Tab) 40 mg DAILY@06 PO Last administered on 12/13/18at 06:54; Admin Dose 40 MG; Start 12/13/18 at 06:00 Nicotine (Nicoderm 21 Mg/ 24hr) 1 patch DAILY TRANSDERM Last administered on 12/13/18at 08:21; Admin Dose 1 PATCH; Start 12/12/18 at 17:00 PETAR TALBOT Dec 13, 2018 13:10
--- NOTE | 2018-12-13 16:25 | RADRPT ---
Vent Rate: 66 bpm RR Interval: 0 msec DC Interval: 184 msec QRS Duration: 104 msec QT Interval: 402 msec QTC Interval: 421 msec P-R-T [place]: 10 - 66 - 2 degrees Normal sinus rhythm ST elevation, consider early repolarization, pericarditis, or injury Abnormal ECG Electronically Signed By: Kentrell Tellez
--- NOTE | 2018-12-13 16:25 | RADRPT ---
Vent Rate: 60 bpm RR Interval: 0 msec MD Interval: 190 msec QRS Duration: 104 msec QT Interval: 400 msec QTC Interval: 400 msec P-R-T [place]: 12 - 71 - 44 degrees Normal sinus rhythm Normal ECG Electronically Signed By: Kentrell Tellez
== END 2018-12-13 11:30 | disposition home or self-care (01) ==
LOC: E/R 22:59 → 6WM 12-12 02:06
PROVIDERS: ADMIT Internal Medicine; ATTEND Internal Medicine
DX: M50.322 Other cervical disc degeneration at C5-C6 level (principal); R07.9 Chest pain, unspecified; E66.01 Morbid (severe) obesity due to excess calories; Z68.43 Body mass index [BMI] 50.0-59.9, adult; K76.0 Fatty (change of) liver, not elsewhere classified; K57.30 Diverticulosis of large intestine without perforation or abscess without bleeding; F17.200 Nicotine dependence, unspecified, uncomplicated; I65.22 Occlusion and stenosis of left carotid artery; E78.5 Hyperlipidemia, unspecified
CPT/HCPCS: 36415; 70492; 71045; 80048; 80061; 82550; 82553; 84443; 84484; 85025; 93005; 93306; 93880; 96374; 96375; J2270; J2405; Q9967; Z7500; Z7502; Z7610; G0378

== ENCOUNTER 2019-01-01 00:07 | Emergency (ER) | payer OTHER ==
[~2019-01-01] VITALS: Wt 148.4 kg
[~2019-01-01 00:07] MED LIST changes: +ASPI-817 PO; -HYDR-3980 PO; +NIAC500T92 PO; +NICO-546 TRANSDERM
--- NOTE | 2019-01-01 05:13 | ERD ---
ER Documentation Chief Complaint Chief Complaint ABSCESS ON RIGHT GLUTE. BLEEDING HPI 33 yo M with no reported pmhx who presents with complaint of R buttock abscess. Has had previous history of gluteal abscess that required drainage. He denies history of diabetes. Has noticed area draining pus like discharge. With worsening pain. No reported fevers, chills, N/V, abdominal pain, urinary symptoms. ROS All systems reviewed and are negative except as per history of present illness. Medications Home Meds Active Scripts Cephalexin* (Keflex*) 500 Mg Capsule, 500 MG PO QID for 7 Days, CAP Prov:KEVINUDINEFILEMON PA-C 01/01/19 Sulfamethoxazole/Trimethoprim* (Bactrim Ds* Tablet) 1 Each Tablet, 1 TAB PO BID, #7 TAB Prov:FILEMON HERNADEZ PA-C 01/01/19 Tramadol HCl (Tramadol HCl) 50 Mg Tablet, 50 MG PO Q6 PRN for PAIN, #20 TAB Prov:FILEMON HERNADEZ PA-C 01/01/19 Niacin (Niacin* ER) 500 Mg Tab.er.24h, 500 MG PO DAILY for 30 Days, TAB.SA Prov:JIMMY RAMESH 12/13/18 Nicotine* (Nicotine* Patch) 21 mg/day Patch, 1 PATCH TRANSDERM DAILY for 30 Days Prov:JIMMY RAMESH 12/13/18 Aspirin* (Aspirin* EC) 81 Mg Tablet.dr, 81 MG PO DAILY for 30 Days, TAB Prov:JIMMY RAMESH 12/13/18 Cyclobenzaprine Hcl* (Cyclobenzaprine Hcl*) 10 Mg Tablet, 10 MG PO Q8 PRN for neck spasm for 7 Days, #60 TAB Prov:JIMMY RAMESH 12/13/18 Cyclobenzaprine Hcl* (Cyclobenzaprine Hcl*) 10 Mg Tablet, 10 MG PO TID, #15 TAB Prov:HERMILA BUNN 11/03/18 Ibuprofen* (Motrin*) 600 Mg Tab, 600 MG PO Q6H PRN for PAIN AND OR ELEVATED TEMP, #20 TAB Prov:HERMILA BUNN 11/03/18 Allergies Allergies: Coded Allergies: No Known Allergy (Unverified , 12/12/18) NKA PER SDS PRE-OP ORDER SHEET 06/11/11 PMhx/Soc History of Surgery: Yes (LEFT KNEE , R SHOULDER, AND UMBILICAL HERNIA REPAIR) Anesthesia Reaction: No Hx Neurological Disorder: No Hx Respiratory Disorders: No Hx Cardiac Disorders: Yes (hypercholesteremia,chest pain) Hx Psychiatric Problems: No Hx Miscellaneous Medical Probl: No Hx Alcohol Use: Yes (occasionally) Hx Substance Use: No Hx Tobacco Use: Yes Smoking Status: Current every day smoker FmHx Family History: No diabetes, No coronary disease, No other Physical Exam Vitals Vital Signs Date Temp Pulse Resp B/P (MAP) Pulse Ox O2 O2 Flow FiO2 Time Delivery Rate 01/01/19 98.1 89 18 120/82 99 Room Air 06:52 (95) 01/01/19 97.6 98 18 175/85 97 00:15 (115) Physical Exam Const: No acute distress, obese, poor hygiene Head: Atraumatic Eyes: Normal Conjunctiva ENT: Normal External Ears, Nose and Mouth. Neck: Full range of motion. No meningismus. Resp: Clear to auscultation bilaterally Cardio: Regular rate and rhythm, no murmurs Abd: Soft, non tender, non distended. Normal bowel sounds Skin: R buttock 2 sites, lateral and proximal lesion larger then smaller lesion, areas of fluctuance, tenderness, erythema, induration Back: No midline or flank tenderness Ext: No cyanosis, or edema Neur: Awake and alert Psych: Normal Mood and Affect Results 24 hrs Current Medications Medications Dose Sig/Yuki Start Time Status Last (Trade) Ordered Route PRN Stop Time Admin Dose Reason Admin Ketorolac 30 mg ONCE STAT 01/01/19 DC 01/01/19 Tromethamine IM 05:34 05:41 (Toradol) 01/01/19 05:36 Lidocaine 20 ml ONCE STAT 01/01/19 DC (Xylocaine INJ 05:35 2% (Mdv) 20 01/01/19 05:37 ml) Procedures/MDM Nonseptic in appearance. Low c/f osteomyelitis or DVT. No immune compromise, bullae, pain out of proportion, or rapid progression c/f necrotizing fasciitis. ED Intervention: Patients abscess has been incised with acceptable resolution Rx: Bactrim DS BID Keflex QID Disposition: At this point, patient is stable for discharge, advised to follow up and return for wound check in 48 hours. Blood Pressure Assessment: Patient's blood pressure was elevated (>120/80) but appears stable without evidence of hypertension emergency or urgency. The patient was counseled about the risks of hypertension and urged to pursue outpatient monitoring and therapy within a week with their primary care physician. Procedure: I and D Attention at this point was placed on the patients R buttock where the abscesses is located. A time out was undertaken to determine that this was the correct patient and the correct procedure for this patient. The skin was prepped and cleansed in the usual sterile fashion. Lidocaine 1% was injected into the dome of both of the abscess areas. Once analgesia was obtained, an 11 blade scalpel was used to incise the entire length of the abscess. The total length of this incision was approx. 2cm. At this point a moderate amount of bloody, purulent fluid was expressed. All loculations were broken up, the wound was irrigated. DISPOSITION PLAN: We discussed follow up with the patient's primary care doctor within 24 to 48 hours. Patient counseled regarding my diagnostic impression and care plan. Prior to discharge all questions answered. Pt agrees with treatment plan and understands strict return precautions. Precautionary instructions provided including instructions to return to the ER if not improving or for any worsening or changing symptoms or concerns. Departure Condition: Stable FILEMON HERNADEZ PA-C Jan 01, 2019 05:13
[2019-01-01] MEDS ORDERED: KETOROLAC 30 MG INJ IM STA (05:34)
[2019-01-01] MEDS ORDERED: LIDOCAINE 2% (MDV) 20 ML INJ INJ STA (05:35)
[2019-01-01] MEDS ORDERED: SULF1TAB31 PO (06:25)
[2019-01-01] MEDS ORDERED: CEPH-443 PO (06:25)
[2019-01-01] MEDS ORDERED: TRAM50TA2 PO (06:25)
[2019-01-01 06:52] VITALS: BP 120/82; PULSE 89; RESP 18
== END 2019-01-01 07:15 | disposition home or self-care (01) ==
LOC: FTE 00:07
DX: L02.31 Cutaneous abscess of buttock (principal); F17.210 Nicotine dependence, cigarettes, uncomplicated; Z79.82 Long term (current) use of aspirin
CPT/HCPCS: 10060; 96372; J1885; Z7502; Z7610

== ENCOUNTER 2019-01-03 13:00 | Emergency (ER) | payer OTHER ==
[~2019-01-03] VITALS: Ht 177.8 cm; Wt 141.6 kg
[~2019-01-03 13:00] MED LIST changes: +CEPH-443 PO; +SULF1TAB31 PO; +TRAM50TA2 PO
[2019-01-03 13:21] VITALS: BP 157/90; PULSE 112; RESP 20; Ht 177.8 cm; Wt 141.6 kg
--- NOTE | 2019-01-03 14:34 | ERD ---
ER Documentation Chief Complaint Chief Complaint WOUND CHECK HPI 33-year-old male presents for recheck on her right buttock abscess drained 2 days ago. He has no fevers, vomiting, shortness of breath. His pain is much improved. He is taking antibiotics. ROS All systems reviewed and are negative except as per history of present illness. Medications Home Meds Active Scripts Cephalexin* (Keflex*) 500 Mg Capsule, 500 MG PO QID for 7 Days, CAP Prov:FILEMON HERNADEZ PA-C 01/01/19 Sulfamethoxazole/Trimethoprim* (Bactrim Ds* Tablet) 1 Each Tablet, 1 TAB PO BID, #7 TAB Prov:FILEMON HERNADEZ-Carolann 01/01/19 Tramadol HCl (Tramadol HCl) 50 Mg Tablet, 50 MG PO Q6 PRN for PAIN, #20 TAB Prov:FILEMON HERNADEZ PA-C 01/01/19 Niacin (Niacin* ER) 500 Mg Tab.er.24h, 500 MG PO DAILY for 30 Days, TAB.SA Prov:JIMMY RAMESH 12/13/18 Nicotine* (Nicotine* Patch) 21 mg/day Patch, 1 PATCH TRANSDERM DAILY for 30 Days Prov:JIMMY RAMESH 12/13/18 Aspirin* (Aspirin* EC) 81 Mg Tablet.dr, 81 MG PO DAILY for 30 Days, TAB Prov:JIMMY RAMESH 12/13/18 Cyclobenzaprine Hcl* (Cyclobenzaprine Hcl*) 10 Mg Tablet, 10 MG PO Q8 PRN for neck spasm for 7 Days, #60 TAB Prov:JIMMY RAMESH 12/13/18 Cyclobenzaprine Hcl* (Cyclobenzaprine Hcl*) 10 Mg Tablet, 10 MG PO TID, #15 TAB Prov:HERMILA BUNN 11/03/18 Ibuprofen* (Motrin*) 600 Mg Tab, 600 MG PO Q6H PRN for PAIN AND OR ELEVATED TEM P, #20 TAB Prov:HERMILA BUNN 11/03/18 Allergies Allergies: Coded Allergies: No Known Allergy (Unverified , 12/12/18) NKA PER SDS PRE-OP ORDER SHEET 06/11/11 PMhx/Soc History of Surgery: Yes (LEFT KNEE , R SHOULDER, AND UMBILICAL HERNIA REPAIR) Anesthesia Reaction: No Hx Neurological Disorder: No Hx Respiratory Disorders: No Hx Cardiac Disorders: Yes (hypercholesteremia,chest pain) Hx Psychiatric Problems: No Hx Miscellaneous Medical Probl: No Hx Alcohol Use: Yes (occasionally) Hx Substance Use: No Hx Tobacco Use: Yes Physical Exam Vitals Vital Signs Date Temp Pulse Resp B/P (MAP) Pulse Ox O2 O2 Flow FiO2 Time Delivery Rate 01/03/19 98.2 112 20 157/90 97 13:21 (112) Physical Exam Const: No acute distress Head: Atraumatic Eyes: Normal Conjunctiva ENT: Normal External Ears, Nose and Mouth. Neck: Full range of motion. No meningismus. Resp: Clear to auscultation bilaterally Cardio: Regular rate and rhythm, no murmurs Abd: Soft, non tender, non distended. Normal bowel sounds Skin: No petechiae or rashes.. Healing right buttock abscess with gauze in place. No significant erythema or induration. No active discharge or residual fluctuance appreciated. Back: No midline or flank tenderness Ext: No cyanosis, or edema Neur: Awake and alert Psych: Normal Mood and Affect Procedures/MDM Gauze was removed and the wound was redressed. Patient presents with satisfactory healing buttock abscesses without signs of residual fluctuance, necrotizing fasciitis, sepsis, additional complications. We discharged home with continuation of antibiotics and return precautions for fevers, worsening redness, new or worsening symptoms. Departure Diagnosis: Primary Impression: Encounter for wound re-check Condition: Stable Patient Instructions: Wound Care Referrals: DOCTOR,NOT ON STAFF (PCP) Additional Instructions: Recheck for worsening redness, fevers, new or worsening symptoms. Wound should continue to heal. Finish antibiotics. MIGUEL KWAN MD Jan 03, 2019 14:34
== END 2019-01-03 14:50 | disposition home or self-care (01) ==
LOC: FTE 13:00
DX: Z48.01 Encounter for change or removal of surgical wound dressing (principal); Z87.891 Personal history of nicotine dependence
CPT/HCPCS: 99281

== ENCOUNTER 2019-02-26 21:29 | Emergency (ER) | payer OTHER ==
[~2019-02-26] VITALS: Ht 177.8 cm; Wt 141.0 kg
[2019-02-26 21:33] VITALS: BP 158/94; PULSE 100; RESP 18; Ht 177.8 cm; Wt 141.0 kg
[2019-02-26] MEDS ORDERED: KETOROLAC 60 MG INJ IM STA (21:51)
[2019-02-26] MEDS ORDERED: DEXAMETHASONE 10 MG/ML 1 ML INJ IM ONE (22:00)
[2019-02-26] MEDS ORDERED: DIAZEPAM 5 MG TAB PO ONE (22:00)
[2019-02-26] MEDS ORDERED: CYCL10TA7 PO (23:51)
[2019-02-26] MEDS ORDERED: CEPH-443 PO (23:51)
[2019-02-26] MEDS ORDERED: NAPR-985 PO (23:51)
[2019-02-26] MEDS ORDERED: MED4DP PO (23:51)
[2019-02-26] MEDS ORDERED: SULF1TAB31 PO (23:51)
[2019-02-26] MEDS ORDERED: HYDR-4011 PO (23:51)
--- NOTE | 2019-02-27 00:42 | ERD ---
ER Documentation Chief Complaint Chief Complaint BACK PAIN, L KNEE PAIN X'S 2 DAYS HPI 33-year-old male presenting with back pain and knee pain. Patient states he has chronic back pain he also has abscesses to his buttocks is been going on for the last 3 days. 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 He fell earlier in the week on his left knee and has sustained pain. He has a history of surgery to the left knee. He has pain with movement and denies any fevers. He denies any abdominal pain. Has not taken medications today. Denies medical problems. NKDA. Surgical history knee surgery. Social history smokes a pack a day. ROS All systems reviewed and are negative except as per history of present illness. Medications Home Meds Active Scripts Cephalexin* (Keflex*) 500 Mg Capsule, 500 MG PO QID for 7 Days, CAP Prov:MICHELLE LANDRUM-C 02/26/19 Sulfamethoxazole/Trimethoprim* (Bactrim Ds* Tablet) 1 Each Tablet, 1 TAB PO BID, #14 TAB Prov:MICHELLE LANDRUM PA-C 02/26/19 Methylprednisolone* (Medrol* DOSE PACK) 4 Mg/Dose-Pack Tab.ds.pk, 4 MG PO . DIRECTED, #1 PACKET Prov:MICHELLE LANDRUM PA-C 02/26/19 Cyclobenzaprine Hcl* (Cyclobenzaprine Hcl*) 10 Mg Tablet, 10 MG PO TID, #15 TAB Prov:MICHELLE LANDRUMC 02/26/19 Naproxen* (Naprosyn*) 500 Mg Tablet, 500 MG PO BID PRN for PAIN AND/OR INFLAMMATION, #30 TAB Prov:MICHELLE LANDRUM-C 02/26/19 Hydrocodone/Acetaminophen ([place] 5-325 Tablet) 1 Each Tablet, 1 TAB PO Q6H PRN for PAIN, #7 TAB Prov:MICHELLE LANDRUMC 02/26/19 Cephalexin* (Keflex*) 500 Mg Capsule, 500 MG PO QID for 7 Days, CAP Prov:FILEMON HERNADEZ PA-C 01/01/19 Sulfamethoxazole/Trimethoprim* (Bactrim Ds* Tablet) 1 Each Tablet, 1 TAB PO BID, #7 TAB Prov:FILEMON HERNADEZ PA-C 01/01/19 Tramadol HCl (Tramadol HCl) 50 Mg Tablet, 50 MG PO Q6 PRN for PAIN, #20 TAB Prov:FILEMON HERNADEZ PA-C 01/01/19 Niacin (Niacin* ER) 500 Mg Tab.er.24h, 500 MG PO DAILY for 30 Days, TAB.SA Prov:JIMMY RAMESH 12/13/18 Nicotine* (Nicotine* Patch) 21 mg/day Patch, 1 PATCH TRANSDERM DAILY for 30 Days Prov:JIMMY RAMESH 12/13/18 Aspirin* (Aspirin* EC) 81 Mg Tablet.dr, 81 MG PO DAILY for 30 Days, TAB Prov:JIMMY RAMESH 12/13/18 Cyclobenzaprine Hcl* (Cyclobenzaprine Hcl*) 10 Mg Tablet, 10 MG PO Q8 PRN for neck spasm for 7 Days, #60 TAB Prov:JIMMY RAMESH 12/13/18 Cyclobenzaprine Hcl* (Cyclobenzaprine Hcl*) 10 Mg Tablet, 10 MG PO TID, #15 TAB Prov:HERMILA BUNN 11/03/18 Ibuprofen* (Motrin*) 600 Mg Tab, 600 MG PO Q6H PRN for PAIN AND OR ELEVATED TEMP, #20 TAB Prov:HERMILA BUNN 11/03/18 Allergies Allergies: Coded Allergies: No Known Allergy (Unverified , 12/12/18) NKA PER [facility] PRE-OP ORDER SHEET 06/11/11 PMhx/Soc History of Surgery: Yes (LEFT KNEE , R SHOULDER, AND UMBILICAL HERNIA REPAIR) Anesthesia Reaction: No Hx Neurological Disorder: No Hx Respiratory Disorders: No Hx Cardiac Disorders: Yes (hypercholesteremia,chest pain) Hx Psychiatric Problems: No Hx Miscellaneous Medical Probl: No Hx Alcohol Use: Yes (occasionally) Hx Substance Use: No Hx Tobacco Use: Yes Smoking Status: Current every day smoker FmHx Family History: No diabetes, No coronary disease, No other Physical Exam Vitals Vital Signs Date Temp Pulse Resp B/P (MAP) Pulse Ox O2 O2 Flow FiO2 Time Delivery Rate 02/26/19 98.9 100 18 158/94 98 21:33 (115) Physical Exam GENERAL: The patient is well-appearing, well-nourished, in no acute distress CHEST: Clear to auscultation bilaterally. There are no rales, wheezes or rhonchi. HEART: Regular rate and rhythm. No murmurs, clicks, rubs or gallops. ABDOMEN:Soft, nontender and nondistended. Good bowel sounds. No rebound or guarding. No gross peritonitis. No gross organomegaly or masses. BACK: No midline or flank tenderness. To palpation along paraspinous muscles extending down the sciatic distribution of the left side. EXTREMITIES: Equal pulses bilaterally. There is no peripheral clubbing, cyanosis or edema. No focal swelling or erythema. Full range of motion. Grossly neurovascularly intact. NEUROLOGIC: Alert and oriented. Cranial nerves II through XII intact. Motor strength in all 4 extremities with 5 out of 5 strength. Sensation grossly intact. Normal speech and gait. SKIN: Erythematous nodules noted buttocks that are indurated but no fluctuance. Postsurgical scars noted from previous I&D sites. Results 24 hrs Current Medications Medications Dose Sig/Yuki Start Time Status Last (Trade) Ordered Route PRN Stop Time Admin Dose Reason Admin Ketorolac 60 mg ONCE STAT 02/26/19 DC 02/26/19 Tromethamine IM 21:51 02/26/19 22:08 (Toradol) 21:53 Diazepam 5 mg ONCE ONCE 02/26/19 DC 02/26/19 (Valium) PO 22:00 02/26/19 22:07 22:01 10 mg ONCE ONCE 02/26/19 DC 02/26/19 Dexamethasone IM 22:00 02/26/19 22:07 (Decadron) 22:01 Procedures/MDM DIAGNOSTIC IMAGING REPORT Patient: TIMBO DUMONT : 1985 Age: 33 Sex: M MR #: [id number] DOS: 02/26/19 2151 Ordering MD: ROSENDA LANDRUM PA-C Location: [facility] Room/Bed: PROCEDURE: XR Knee. CLINICAL INDICATION: Left knee pain. TECHNIQUE: AP, tunneled, lateral and oblique views of the left knee were obtained. The images reviewed on a PACS workstation. COMPARISON: None. FINDINGS: There are surgical anchors in the patella from prior surgery. The distal femur and proximal tibia/fibula are normal in appearance. There is no fracture. The medial and lateral compartment joint spaces are preserved. There is no abnormal calcification. There is no joint effusion. Hoffa's fat pad is normal in appearance. There is normal appearance of the patellofemoral joint. The soft tissues are unremarkable. IMPRESSION: 1. Normal radiographs of the left knee. No evidence of fracture. DIAGNOSTIC IMAGING REPORT Patient: TIMBO DUMONT : 1985 Age: 33 Sex: M MR #: [id number] DOS: 02/26/19 2151 Ordering MD: ROSENDA LANDRUM PA-C Location: [facility] Room/Bed: PROCEDURE: CT Lumbar Spine without contrast. CLINICAL INDICATION: Lumbar spine pain. TECHNIQUE: The study was performed on a multislice multidetector CT scanner. Spiral axial 1 mm images were obtained through the lumbar spine without intravenous contrast. 1 or more of the following dose reduction techniques were utilized: Automated exposure control, adjustment of the mA and/or kV according to patient's size, iterative reconstruction technique. Coronal and sagittal reformations were obtained. The images were reviewed on a PACS workstation. DICOM images are available. RADIATION DOSE: CTDIvol: 46.66 mGy mGy DLP: 1526.16 mGy.cm mGy-cm COMPARISON: No prior studies are available for comparison. FINDINGS: There are multilevel Schmorl's nodes in the inferior thoracic/upper lumbar spine seen at the T11-12, T12-L1 and L1-2 levels, suggestive of Scheuermann's disease. The vertebral body heights are maintained. The marrow density is within normal limits. There is no evidence of fracture or dislocation. There is preservation of the intervertebral discs. The paraspinal soft tissues unremarkable. No significant paraspinal soft tissue swelling. L1-L2: There is a 2 mm annular disc bulge. The thecal sac measures 8.1 mm midline AP diameter. The lateral recesses are patent. There is mild bilateral facet spondylosis. The neural foramina are patent. L2-L3: There is a 2-3 mm annular disc bulge. The thecal sac measures 8.5 mm midline AP diameter. lateral recesses are patent. There is mild bilateral facet spondylosis. The neural foramina are patent. L3-L4: There is a 1 mm annular disc bulge without significant indentation on the ventral thecal sac. The thecal sac and lateral recesses are patent. There is mild bilateral facet spondylosis. The neural foramina are patent. L4-L5: There is a 1 mm annular disc bulge without significant indentation on the ventral thecal sac. The thecal sac and lateral recesses are patent. There is mild bilateral facet spondylosis. The neural foramina are patent. L5-S1: The posterior margin of the disc is normal in appearance. No significant disc bulge or protrusion is evident. The central canal and neural foramina are adequately patent. IMPRESSION: 1. No acute abnormality of the lumbar spine. No evidence of fracture. 2. Multilevel Schmorl's nodes in the lower thoracic and lumbar spine from T11-12 to L1-2 consistent with Scheuermann's disease. 3. Mild spondylosis/degenerative enthesopathy that L1-2 and L2-3 with mild narrowing of the lumbar thecal sac. The lateral recesses or neural foramina are patent at these levels. ER course: Valium, Toradol and Decadron given in ED. MDM: 33-year-old male presenting with back pain. I have low suspicion for acute fracture dislocation. I have low suspicion for nerve impingement or deficit. I have low suspicion for deep tracking abscess. I have low suspicion for cauda equina, discitis or epidural abscess. Patient is discharged with strict ER precautions and supportive medications. Patient is given both pain medication and antibiotics for his symptoms. Patient is told symptoms change or worsen to return immediately to the ER. All questions answered at discharge Departure Diagnosis: Primary Impression: Back pain Additional Impression: Abscess Condition: Stable Patient Instructions: Abscess, Antiobiotic Treatment Only, Back Pain W/ Sciatica Referrals: [facility] YOU HAVE RECEIVED A MEDICAL SCREENING EXAM AND THE RESULTS INDICATE THAT YOU DO NOT HAVE A CONDITION THAT REQUIRES URGENT TREATMENT IN THE EMERGENCY DEPARTMENT. FURTHER EVALUATION AND TREATMENT OF YOUR CONDITION CAN WAIT UNTIL YOU ARE SEEN IN YOUR DOCTORS OFFICE WITHIN THE NEXT 1-2 DAYS. IT IS YOUR RESPONSIBILITY TO MAKE AN APPOINTMENT FOR FOLOW-UP CARE. IF YOU HAVE A PRIMARY DOCTOR --you should call your primary doctor and schedule an appointment IF YOU DO NOT HAVE A PRIMARY DOCTOR YOU CAN CALL OUR PHYSICIAN REFERRAL HOTLINE AT IF YOU CAN NOT AFFORD TO SEE A PHYSICIAN YOU CAN CHOSE FROM THE FOLLOWING [facility] [address] [facility] [address] [facility] [facility] [address] [facility] [address] [facility]. [facility] [address] [facility] [facility] [address] Additional Instructions: FOLLOW UP WITH YOUR PRIMARY CARE PHYSICIAN TOMORROW.Return to this facility if you are not improving as expected. MICHELLE LANDRUM PA-C Feb 27, 2019 00:41
== END 2019-02-27 00:12 | disposition home or self-care (01) ==
LOC: FTE 21:29
DX: L02.31 Cutaneous abscess of buttock (principal); F17.210 Nicotine dependence, cigarettes, uncomplicated
CPT/HCPCS: 72131; 73562; 96372; J1100; J1885; Z7502; Z7610

== ENCOUNTER 2019-03-11 23:44 | Observation (INO) | payer OTHER ==
[~2019-03-11] VITALS: Ht 177.8 cm; Wt 141.0 kg
[~2019-03-11 23:44] MED LIST changes: +HYDR-4011 PO; +MED4DP PO; +NAPR-985 PO
[2019-03-12] VITALS (7 sets, daily range): BP systolic 116–126; BP diastolic 65–68; PULSE 66–82; RESP 18–19; Ht 177.8 cm; Wt 141.0 kg
[2019-03-12] MEDS ORDERED: NITROGLYCERIN 2% 1 GM OINT PKT TD STA (00:14)
[2019-03-12] MEDS ORDERED: ONDANSETRON 4 MG INJ IV STA (00:14)
[2019-03-12] MEDS ORDERED: ASPIRIN 325 MG TAB PO STA (00:14)
[2019-03-12] MEDS ORDERED: morphine 4 MG/ML VIAL IV STA (00:14)
--- NOTE | 2019-03-12 02:03 | ERD ---
ER Documentation Chief Complaint Chief Complaint cp x's 2 hrs HPI 33-year-old gentleman who presents to the emergency room complaining of chest pain he describes it is left-sided, pressure-like rating to the left upper extremity for the last several hours. The patient has a known history of morbid obesity, he has a carotid artery stenosis. He denies any headache or slurred speech, no motor weakness, no mid back pain. Symptoms are moderate currently. Patient had an admission in November for similar symptoms but has not had a stress test and has not been able to follow-up with r&d engineer. ROS All systems reviewed and are negative except as per history of present illness. Medications Home Meds Active Scripts Cephalexin* (Keflex*) 500 Mg Capsule, 500 MG PO QID for 7 Days, CAP Prov:MICHELLE LANDRUM PA-C 02/26/19 Methylprednisolone* (Medrol* DOSE PACK) 4 Mg/Dose-Pack Tab.ds.pk, 4 MG PO . DIRECTED, #1 PACKET Prov:MICHELLE LANDRUM PA-C 02/26/19 Cyclobenzaprine Hcl* (Cyclobenzaprine Hcl*) 10 Mg Tablet, 10 MG PO TID, #15 TAB Prov:MICHELLE LANDRUM PA-C 02/26/19 Naproxen* (Naprosyn*) 500 Mg Tablet, 500 MG PO BID PRN for PAIN AND/OR INFLAMMATION, #30 TAB Prov:MICHELLE LANDRUM PA-C 02/26/19 Hydrocodone/Acetaminophen ([place]an 5-325 Tablet) 1 Each Tablet, 1 TAB PO Q6H PRN for PAIN, #7 TAB Prov:MICHELLE LANDRUM PA-C 02/26/19 Cephalexin* (Keflex*) 500 Mg Capsule, 500 MG PO QID for 7 Days, CAP Prov:FILEMON HERNADEZ PA-C 01/01/19 Niacin (Niacin* ER) 500 Mg Tab.er.24h, 500 MG PO DAILY for 30 Days, TAB.SA Prov:JIMMY RAMESH 12/13/18 Nicotine* (Nicotine* Patch) 21 mg/day Patch, 1 PATCH TRANSDERM DAILY for 30 Days Prov:JIMMY RAMESH 12/13/18 Aspirin* (Aspirin* EC) 81 Mg Tablet.dr, 81 MG PO DAILY for 30 Days, TAB Prov:JIMMY RAMESH 12/13/18 Cyclobenzaprine Hcl* (Cyclobenzaprine Hcl*) 10 Mg Tablet, 10 MG PO Q8 PRN for neck spasm for 7 Days, #60 TAB Prov:JIMMY RAMESH 12/13/18 Cyclobenzaprine Hcl* (Cyclobenzaprine Hcl*) 10 Mg Tablet, 10 MG PO TID, #15 TAB Prov:HERMILA BUNN S. 11/03/18 Ibuprofen* (Motrin*) 600 Mg Tab, 600 MG PO Q6H PRN for PAIN AND OR ELEVATED TEMP, #20 TAB Prov:HERMILA BUNN S. 11/03/18 Discontinued Scripts Sulfamethoxazole/Trimethoprim* (Bactrim Ds* Tablet) 1 Each Tablet, 1 TAB PO BID, #14 TAB Prov:MICHELLE LANDRUM PA-C 02/26/19 Sulfamethoxazole/Trimethoprim* (Bactrim Ds* Tablet) 1 Each Tablet, 1 TAB PO BID, #7 TAB Prov:FILEMON HERNADEZ PA-C 01/01/19 Tramadol HCl (Tramadol HCl) 50 Mg Tablet, 50 MG PO Q6 PRN for PAIN, #20 TAB Prov:FILEMON HERNADEZ PA-C 01/01/19 Allergies Allergies: Coded Allergies: No Known Allergy (Unverified , 03/12/19) NKA PER [facility] PRE-OP ORDER SHEET 06/11/11 PMhx/Soc History of Surgery: Yes (LEFT KNEE , R SHOULDER, AND UMBILICAL HERNIA REPAIR) Anesthesia Reaction: No Hx Neurological Disorder: No Hx Respiratory Disorders: No Hx Cardiac Disorders: Yes (hypercholesteremia,chest pain) Hx Psychiatric Problems: No Hx Miscellaneous Medical Probl: No Hx Alcohol Use: Yes (occasionally) Hx Substance Use: No Hx Tobacco Use: Yes Smoking Status: Current every day smoker FmHx Family History: diabetes Physical Exam Vitals Vital Signs Date Temp Pulse Resp B/P (MAP) Pulse Ox O2 O2 Flow FiO2 Time Delivery Rate 03/12/19 88 19 129/63 99 Room Air 03:38 (85) 03/12/19 86 14 113/63 98 Room Air 02:08 (80) 03/12/19 Nasal 00:22 Cannula 03/12/19 99.5 110 20 152/98 98 Room Air 00:22 (116) 03/11/19 100.1 116 20 162/106 98 23:54 (124) Physical Exam General: Well developed, well nourished, no acute distress Head: Normocephalic, atraumatic. Eyes: Pupils equally reactive, EOM intact ENT: Moist mucous membranes Neck: Supple, no lymphadenopathy Respiratory: Lungs clear bilaterally, no distress Cardiovascular: RRR, no murmurs, rubs, or gallops Abdominal: Soft, non-tender, non-distended, no peritoneal signs : Deferred MSK: No edema, no unilateral swelling, 5/5 strength Neurologic: Alert and oriented, moving all extremities, normal speech, no focal weakness, no cerebellar signs Skin: No rash Psych: Normal mood Result Diagram: 03/12/197 03/12/19 0027 Results 24 hrs Laboratory Tests Test 03/12/19 00:27 White Blood Count 11.1 10^3/ul Red Blood Count 5.11 10^6/ul Hemoglobin 16.0 g/dl Hematocrit 47.4 % Mean Corpuscular Volume 92.8 fl Mean Corpuscular Hemoglobin 31.3 pg Mean Corpuscular Hemoglobin Concent 33.8 g/dl Red Cell Distribution Width 13.1 % Platelet Count 250 10^3/UL Mean Platelet Volume 9.0 fl Immature Granulocytes % 0.500 % Neutrophils % 65.6 % Lymphocytes % 25.0 % Monocytes % 8.5 % Eosinophils % 0.0 % Basophils % 0.4 % Nucleated Red Blood Cells % 0.0 /100WBC Immature Granulocytes # 0.050 10^3/ul Neutrophils # 7.3 10^3/ul Lymphocytes # 2.8 10^3/ul Monocytes # 0.9 10^3/ul Eosinophils # 0.0 10^3/ul Basophils # 0.0 10^3/ul Nucleated Red Blood Cells # 0.0 10^3/ul Sodium Level 141 mmol/L Potassium Level 4.0 mmol/L Chloride Level 104 mmol/L Carbon Dioxide Level 26 mmol/L Anion Gap 11 Blood Urea Nitrogen 12 mg/dl Creatinine 0.68 mg/dl Est Glomerular Filtrat Rate mL/min > 60 mL/min Glucose Level 169 mg/dl Calcium Level 9.1 mg/dl Troponin I < 0.012 ng/ml Current Medications Medications Dose Sig/Yuki Start Time Status Last (Trade) Ordered Route PRN Stop Time Admin Dose Reason Admin Aspirin 325 mg ONCE STAT 03/12/19 DC 03/12/19 (Aspirin) PO 00:14 01:31 03/12/19 00:15 1 inch ONCE STAT 03/12/19 DC 03/12/19 Nitroglycerin TD 00:14 01:32 03/12/19 00:15 (Nitroglyceri n 2% Oint) Morphine 4 mg ONCE STAT 03/12/19 DC 03/12/19 Sulfate IV 00:14 01:32 (morphine) 03/12/19 00:15 Ondansetron 4 mg ONCE STAT 03/12/19 DC 03/12/19 HCl (Zofran IV 00:14 01:31 Inj) 03/12/19 00:15 Ondansetron 4 mg ER BRIDGE 03/12/19 HCl (Zofran PRN IV 03:30 Inj) NAUSEA/VOMITI 03/13/19 03:29 NG 650 mg ER BRIDGE 03/12/19 Acetaminophen PRN PO 03:30 (Tylenol .MILD PAIN 03/13/19 03:29 Tab) 1-3 OR TEMP Procedures/MDM EKG, MONITORS, & DIAGNOSTIC IMAGING: EKG: I reviewed and interpreted a 12-lead EKG. Rhythm: Normal sinus rhythm ST Changes: No contiguous ST segment elevations T waves: Deep T wave inversions in the inferior leads Impression: Possible ischemia Repeat EKG: EKG: I reviewed and interpreted a 12-lead EKG. Rhythm: Normal sinus rhythm ST Changes: No contiguous ST segment elevations T waves: No contiguous T wave inversions Impression: [No evidence of acute cardiac ischemia] Chest x-ray: I reviewed and interpreted a 1 view of the chest Mediastinum: No enlargement Cardiac silhouette: No cardiomegaly Airspace: Clear lung white bilaterally without evidence of pneumothorax Bones: No evidence of fracture PROCEDURES: [None] LAB INTERPRETATION: * Negative troponin MEDICAL DECISION MAKING: The patient's history, physical exam and clinical presentation is concerning for possible cardiogenic etiology and acute coronary syndrome. Based on the patient's clinical exam and history and risk factors, I have a much lower clinical concern for pulmonary embolism, acute aortic dissection, pneumothorax, pneumonia, cardiac tamponade HEART Score: Greater than 4 MACE Rate: 16.6% Shared Decision Making: We had a conversation regarding risk stratification, MACE rate, and the risks, benefits, alternatives of disposition planning options. Disposition planning: Admission ER COURSE: * Aspirin given * Chest pain-free after nitro and morphine * The patient has an abnormal EKG that is change from his visit in November. Unfortunate the patient has not had stress testing or provocative testing. The patient's age is reassuring with the patient has multiple risk factors and warrants hospitalization for ACS rule out and likely provocative testing given failure of outpatient successful provocative testing CONSULTATION: [None] DISPOSITION PLAN: Telemetry admission for management of chest pain to rule out acute coronary syndrome, serial enzymes, risk stratification and consideration of provocative testing CONSULTATION: Accepting care team and consultations: I discussed the current laboratory data, diagnostic imaging and emergency care provided. Admitting team: Dr. Malcolm Lund Admitting team indication: Insurance directed, [facility] Departure Diagnosis: Primary Impression: Chest pain Chest pain type: unspecified Qualified Codes: R07.9 - Chest pain, unspecified Condition: Stable SILVIA FRENCH MD Mar 12, 2019 02:03
[2019-03-12] MEDS ORDERED: ONDANSETRON 4 MG INJ IV PRN (03:30)
[2019-03-12] MEDS ORDERED: ACETAMINOPHEN 325 MG TAB PO PRN (03:30)
[2019-03-12] MEDS ORDERED: HYDROCODONE/APAP (5/325) TAB PO PRN (08:00)
[2019-03-12] MEDS: CYCLOBENZAPRINE 10 MG TAB PO SCH ×3 (08:24→20:29)
[2019-03-12] MEDS: ASPIRIN 81 MG TAB PO SCH (08:24)
--- NOTE | 2019-03-12 11:25 | HP ---
JIMMY RAMESH 03/12/19 1125: Date/Time of Note Date/Time of Note DATE: 03/12/19 TIME: 11:24 Assessment/Plan VTE Prophylaxis SCD applied (from Nsg): No SCD contraindicated: low risk/ambulating Pharmacological prophylaxis: NA/contraindicated Pharm contraindication: low risk/ambulating Lines/Catheters IV Catheter Type (from Nrsg): Peripheral IV Assessment/Plan Hospital Course 1. SIRS unknown etiology. Pt has foreskin/penile fissures. 2. Chest pain r/out RAVI. Telemetry shows normal sinus rhythm, no ST changes. 3. Hx of bilateral knee arthritis, s/p left knee surgery 2010 4. Fatty liver 5. hx of diverticulosis 6. s/p right shoulder surgery 2000 7. Nicotine dependence 8. Moderate stenosis ( 50 - 69% ) of the left internal carotid artery. 9. Morbid obesity 10. Hypertension Assessment/Plan -penile swab -MARK -UA -US neck carotid 11/2018. shows: No evidence of a significant stenosis of the right internal carotid artery. Moderate stenosis ( 50 - 69% ) of the left internal carotid artery. Normal antegrade flow in the vertebral arteries bilaterally. -tele -Dr Ferrell for cardiology consult -trop neg -DVT prophylaxis amb. -GI prophylaxis Protonix -chest Xray : No acute pulmonary disease. Result Diagram: 03/12/19 0027 03/12/19 0027 Results 24hrs Laboratory Tests Test 03/12/19 00:27 03/12/19 05:36 White Blood Count 11.1 #H Red Blood Count 5.11 Hemoglobin 16.0 Hematocrit 47.4 Mean Corpuscular Volume 92.8 Mean Corpuscular Hemoglobin 31.3 Mean Corpuscular Hemoglobin Concent 33.8 Red Cell Distribution Width 13.1 Platelet Count 250 Mean Platelet Volume 9.0 Immature Granulocytes % 0.500 H Neutrophils % 65.6 Lymphocytes % 25.0 Monocytes % 8.5 Eosinophils % 0.0 Basophils % 0.4 Nucleated Red Blood Cells % 0.0 Immature Granulocytes # 0.050 H Neutrophils # 7.3 Lymphocytes # 2.8 Monocytes # 0.9 Eosinophils # 0.0 Basophils # 0.0 Nucleated Red Blood Cells # 0.0 Sodium Level 141 Potassium Level 4.0 Chloride Level 104 Carbon Dioxide Level 26 Anion Gap 11 Blood Urea Nitrogen 12 Creatinine 0.68 Est Glomerular Filtrat Rate mL/min > 60 Glucose Level 169 Calcium Level 9.1 Troponin I < 0.012 < 0.012 Creatine Kinase 36 Creatine Kinase Index 0.6 Creatinine Kinase MB (Mass) 0.23 HPI/ROS Admit Date/Time Admit Date/Time Mar 12, 2019 at 03:11 Hx of Present Illness 33-year-old gentleman who presents to the emergency room complaining of chest pain, left-sided, pressure-like rating to the left upper extremity for the last several hours. The patient has a known history of morbid obesity, he has a left carotid artery stenosis. Patient had an admission in November for similar symptoms but has not had a stress test and has not been able to follow-up with senior business manager. ROS Cardiovascular: chest pain; No no complaints, No edema, No lightheadedness, No orthopenea, No palpitations, No paroxysmal nocturnal dyspnea, No other Genitourinary: no complaints Musculoskeletal: no complaints Skin: laceration (penile) PMH/Family/Social Past Medical History Medications Current Medications Ondansetron HCl (Zofran Inj) 4 mg ER BRIDGE PRN IV NAUSEA/VOMITING; Start 03/12/19 at 03:30; Stop 03/13/19 at 03:29 Acetaminophen (Tylenol Tab) 650 mg ER BRIDGE PRN PO .MILD PAIN 1-3 OR TEMP; Start 03/12/19 at 03:30; Stop 03/13/19 at 03:29 Cyclobenzaprine HCl (Flexeril) 10 mg TID PO Last administered on 03/12/19at 08:24; Admin Dose 10 MG; Start 03/12/19 at 09:00 Acetaminophen/ Hydrocodone Bitart ([place]sey (5/325)) 1 tab Q6H PRN PO MODERATE PAIN LEVEL 4-6 Last administered on 03/12/19at 08:24; Admin Dose 1 TAB; Start 03/12/19 at 08:00 Aspirin (Aspirin) 81 mg DAILY PO Last administered on 03/12/19at 08:24; Admin Dose 81 MG; Start 03/12/19 at 09:00 Pantoprazole (Protonix Tab) 40 mg DAILY@06 PO ; Start 03/13/19 at 06:00 Coded Allergies: No Known Allergy (Unverified , 03/12/19) NKA PER SDS PRE-OP ORDER SHEET 06/11/11 Past Surgical History Past Surgical Hx: other (left knee surgery 2010, right shoulder 2000) Family History Significant Family History: no pertinent family hx Social History Alcohol Use: none Smoking Status: Current every day smoker Drug Use: none Exam/Review of Systems Vital Signs Vitals Vital Signs Date Temp Pulse Resp B/P (MAP) Pulse Ox O2 O2 Flow FiO2 Time Delivery Rate 03/12/19 68 09:17 03/12/19 97.6 18 116/68 96 07:24 (84) 03/12/19 Room Air 05:43 Exam Constitutional: alert, oriented Head: normocephalic Eyes: nl conjunctiva ENMT: nl external ears & nose Neck: supple Respiratory: clear to auscultation Cardiovascular: regular rate and rhythm Genitourinary - Male: other (penile fissures, 0.2 on 0.5 mm total 3) Musculoskeletal: nl extremities to inspection GIANFRANCO RAYMOND MD 03/15/19 1041: Assessment/Plan Assessment/Plan Assessment/Plan seen and 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 Cards penile lesion> send for cx, low grade fevers Result Diagram: 03/12/19 0027 03/12/19 0027 PMH/Family/Social Past Medical History Coded Allergies: No Known Allergy (Unverified , 03/12/19) NKA PER SDS PRE-OP ORDER SHEET 06/11/11 JIMMY RAMESH Mar 12, 2019 11:25 GIANFRANCO RAYMOND MD Mar 15, 2019 10:41
[2019-03-12] MEDS: LOSARTAN 25 MG TAB PO SCH (11:53)
[2019-03-12] MEDS: NICOTINE (21 MG/24 HR) PATCH TRANSDERM SCH (12:55)
--- NOTE | 2019-03-12 17:27 | CONS ---
DATE OF ADMISSION: 03/12/2019 DATE OF CONSULTATION: 03/12/2019 REASON FOR CONSULTATION: Chest pain, assess for acute coronary syndrome. REQUESTING PHYSICIAN: Malcolm Burrell MD HISTORY OF PRESENT ILLNESS: Mr. Carmichael is a 33-year-old male with a history of borderline h ypertension, fatty liver, degenerative joint disease, nicotine dependence, prior shoulder surgery, di verticulitis, recent admit in November for neck pain radiating down to his chest, ruled out at that time with a normal ejection fraction by 2D echo now represents with complaints of left shoulder and chest pain described as a burning sensation occurring after he states he had been playing games on his chava ne holding it for a long time and additionally complains of possible foreskin infection. Upon arriva l, temperature of 100.1, blood pressure 126/106, pulse 116, respiratory rate 20 and satting 98%. The patient's labs were notable for white count of 11.1, hemoglobin of 16 and platelet count of 250. So dium 141, potassium 4.0, creatinine 0.68 and BUN 12. Troponin negative. The patient's electrocardio gram had revealed sinus tachycardia, rate of 111 with incomplete right bundle branch block and second mark repolarization abnormalities, more exaggerated in the initial EKG and then had a repeat EKG and s omewhat different with a rate of 84 with ongoing borderline incomplete right bundle branch block and now is exaggerated to repolarization abnormalities. The patient had a set of negative troponins sinc e admit to the floor for 2 negative troponins. The patient denies ongoing shoulder or chest pain. PAST MEDICAL HISTORY: As above in HPI. MEDICATIONS CURRENTLY IN HOSPITAL: 1. Protonix 40 mg daily. 2. Cozaar 25 mg daily. 3. Flexeril 10 mg p.o. t.i.d. 4. Aspirin 81 mg daily. 5. Zofran p.r.n. 6. Tylenol p.r.n. 7. Theriot p.r.n. ALLERGIES: NO KNOWN DRUG ALLERGIES. SOCIAL HISTORY: Positive tobacco, tried to quit and states he was able to quit for 2 weeks and retur cruz to it. FAMILY HISTORY: No history of sudden cardiac or early CAD. REVIEW OF SYSTEMS: As above in HPI. CONSTITUTIONAL: No fevers or chills. PULMONARY: No current shortness of breath. CARDIOVASCULAR: Prior shoulder and chest pain, now resolved. GASTROINTESTINAL: No vomiting. GENITOURINARY: No hematuria, possible foreskin infection MUSCULOSKELETAL: Shoulder pain. PHYSICAL EXAMINATION: VITAL SIGNS: Temperature of 100.1 T-max, T-current 99.5, blood pressure 129/60, pulse 88, respirator y rate 19 and satting 99%. GENERAL: The patient is alert, awake, no acute distress. NECK: JVP approximately 8 to 9 cm of water. CHEST: Fair air movement throughout. HEART: Regular rate and rhythm. Normal S1, S2, I/ systolic murmur. Nondisplaced PMI. ABDOMEN: Positive bowel sounds, soft. EXTREMITIES: No significant pitting edema, 1+ pulses bilateral posterior tibial. LABORATORY DATA: Most recently as above in HPI. No further labs for my review at this time. IMAGING STUDIES: As above in HPI. No further imaging studies for my review at this time. IMPRESSION: 1. Chest pain really radiating from his shoulder, described as a burning sensation, somewhat atypica l for cardiac etiology at this time occurring at rest after holding a game. 2. Abnormal electrocardiogram with initial more exaggerated repolarization abnormalities in the sett ing of incomplete right bundle branch block, possibly related from a rate of 111 on initial EKG to 84 on the second EKG. 3. Hypertension, borderline, on losartan with improved blood pressures. 4. History of carotid stenosis by prior carotid ultrasound. 5. Ongoing tobacco dependence. 6. Possible penile foreskin infection. 7. Fever with leukocytosis. RECOMMENDATIONS: 1. At this time, would complete the patient's rule out for myocardial infarction to ensure the patie nt's chest pain was not due to acute coronary syndrome such as an acute myocardial infarction. I kaci l continue to check serial EKGs to assess for significant ongoing changes. 2. We will follow the patient's 2D echo that has been done for reassessment of ejection fraction, wa ll motion or rule out any major valvular abnormalities. 3. Continue patient's current aspirin for prophylaxis against cardiovascular events and the patient' s losartan for blood pressure control. 4. We will give patient pain control for shoulder pain and consider further shoulder imaging. 5. We would consider antibiotics given the fever and leukocytosis. 5. Follow for recurrent episodes of chest pain. Thank you for allowing me to take part in the care of this patient. I will continue to follow him ve ry closely with you with further recommendations will be made as the patient progresses through his [facility] clinical course. Dictated By: PETAR HAMMER/ROBERTO Conf#: [id number] DID#: [id number] CC: MALCOLM BURRELL MD;*EndCC*
[2019-03-13] VITALS: BP 90/61; PULSE 70; PULSE 71; RESP 18
[2019-03-13 04:00] VITALS: BP 101/64; PULSE 74; PULSE 89; RESP 18
[2019-03-13] MEDS ORDERED: PANTOPRAZOLE (EC) 40 MG TAB PO SCH (06:00)
[2019-03-13 07:21] VITALS: BP 130/74; PULSE 75; RESP 18
[2019-03-13 08:00] VITALS: PULSE 74
[2019-03-13] MEDS: LOSARTAN 25 MG TAB PO SCH (08:20)
[2019-03-13] MEDS: NICOTINE (21 MG/24 HR) PATCH TRANSDERM SCH (08:20)
[2019-03-13] MEDS: ASPIRIN 81 MG TAB PO SCH (08:20)
[2019-03-13] MEDS: CYCLOBENZAPRINE 10 MG TAB PO SCH ×2 (08:20→11:53)
[2019-03-13 11:08] VITALS: BP 122/61; PULSE 73; RESP 18
[2019-03-13] MEDS ORDERED: CLOTRIMAZOLE 1% 30 GM CR TOP ONE (12:00)
--- NOTE | 2019-03-13 12:04 | PDOCDIS ---
Discharge Instructions CONDITION [id number] Patient Condition: [id number] Stable HOME CARE INSTRUCTIONS: [id number] Diet Instructions: [id number] Regular ACTIVITY: [id number] Activity Restrictions: [id number] Slowly Increase Activity Rest between Activity Avoid heavy lifting FOLLOW UP/APPOINTMENTS Follow-up Plan PCP 1 week JIMMY RAMESH Mar 13, 2019 12:04
[2019-03-13] MEDS ORDERED: LOSA25TA2 PO (12:06)
[2019-03-13] MEDS ORDERED: CLOT30CR24 TOP (12:06)
--- NOTE | 2019-03-13 12:07 | DS ---
Date/Time of Note Date/Time of Note DATE: 03/13/19 TIME: 12:06 Discharge Summary Admission/Discharge Info Admit Date/Time Mar 12, 2019 at 03:11 Discharge Date/Time Discharge Diagnosis left shoulder pain Patient Condition: Stable Consults Dr Ferrell, cardiology Hx of Present Illness 33-year-old gentleman who presents to the emergency room complaining of chest pain, left-sided, pressure-like rating to the left upper extremity for the last several hours. The patient has a known history of morbid obesity, he has a left carotid artery stenosis. Patient had an admission in November for similar symptoms but has not had a stress test and has not been able to follow-up with suction plate roller hand. Hospital Course 33-year-old gentleman who presents to the emergency room complaining of chest pain, left-sided, pressure-like rating to the left upper extremity for the last several hours. The patient has a known history of morbid obesity, he has a left carotid artery stenosis. Patient had an admission in November for similar symptoms but has not had a stress test and has not been able to follow-up with suction plate roller hand. 1. SIRS unknown etiology. Pt has foreskin/penile fissures. 2. Chest pain r/out RAVI. Telemetry shows normal sinus rhythm, no ST changes. 3. Hx of bilateral knee arthritis, s/p left knee surgery 2010 4. Fatty liver 5. hx of diverticulosis 6. s/p right shoulder surgery 2000 7. Nicotine dependence 8. Moderate stenosis ( 50 - 69% ) of the left internal carotid artery. 9. Morbid obesity 10. Hypertension Assessment/Plan During hospitalization pt was on telemetry service. He complained on foresckin/penile lesions and there were a swab taken, that showed catherine and Stah infection. Pt was started on clotrimasole cream BID. Also pt has MARK that was positive on opiates. This is might be related morphine injection in ER. UA was collected to find a source of elevated WBC, UA was negative. Pt had done US of the neck carotid on 11/2018 that shows: No evidence of a significant stenosis of the right internal carotid artery. Moderate stenosis ( 50 - 69% ) of the left internal carotid artery. Normal antegrade flow in the vertebral arteries bilaterally. Pt had chest Xray done that showed : No acute pulmonary disease.Dr Dr Ferrell was called for cardiology consult. He doubt in any cardiac origin of chest pain, and troponin are negative two times. Pt was d/c home in stable condition, cleared by dr Ferrell, with recommendations to d/c NAproxen 500 mg po daily as needed for left shoulder pain. Home Meds Active Scripts Clotrimazole* (Clotrimazole* AF) 1% - 30 Gm Cream.gm., 1 APPLIC TOP BID for 7 Days, TUB Prov:JIMMY RAMESH 03/13/19 Losartan Potassium* (Cozaar*) 25 Mg Tablet, 25 MG PO DAILY for 30 Days, TAB Prov:ZENJIMMY ORNELAS 03/13/19 Niacin (Niacin* ER) 500 Mg Tab.er.24h, 500 MG PO DAILY for 30 Days, TAB.SA Prov:JIMMY RAMESH 12/13/18 Nicotine* (Nicotine* Patch) 21 mg/day Patch, 1 PATCH TRANSDERM DAILY for 30 Days Prov:JIMMY RAMESH 12/13/18 Aspirin* (Aspirin* EC) 81 Mg Tablet.dr, 81 MG PO DAILY for 30 Days, TAB Prov:JIMMY RAMESH 12/13/18 Discontinued Scripts Cephalexin* (Keflex*) 500 Mg Capsule, 500 MG PO QID for 7 Days, CAP Prov:MICHELLE LANDRUM PA-C 02/26/19 Methylprednisolone* (Medrol* DOSE PACK) 4 Mg/Dose-Pack Tab.ds.pk, 4 MG PO . DIRECTED, #1 PACKET Prov:MICHELLE LANDRUM PA-C 02/26/19 Cyclobenzaprine Hcl* (Cyclobenzaprine Hcl*) 10 Mg Tablet, 10 MG PO TID, #15 TAB Prov:MICHELLE LANDRUM PA-C 02/26/19 Naproxen* (Naprosyn*) 500 Mg Tablet, 500 MG PO BID PRN for PAIN AND/OR INFLAMMATION, #30 TAB Prov:MICHELLE LANDRUM PA-C 02/26/19 Hydrocodone/Acetaminophen ([place] 5-325 Tablet) 1 Each Tablet, 1 TAB PO Q6H PRN for PAIN, #7 TAB Prov:MICHELLE LANDRUM PA-C 02/26/19 Cephalexin* (Keflex*) 500 Mg Capsule, 500 MG PO QID for 7 Days, CAP Prov:FILEMON HERNADEZ PA-C 01/01/19 Cyclobenzaprine Hcl* (Cyclobenzaprine Hcl*) 10 Mg Tablet, 10 MG PO Q8 PRN for neck spasm for 7 Days, #60 TAB Prov:JIMMY RAMESH 12/13/18 Cyclobenzaprine Hcl* (Cyclobenzaprine Hcl*) 10 Mg Tablet, 10 MG PO TID, #15 TAB Prov:HERMILA BUNN S. 11/03/18 Ibuprofen* (Motrin*) 600 Mg Tab, 600 MG PO Q6H PRN for PAIN AND OR ELEVATED TEMP, #20 TAB Prov:HERMILA BUNN S. 11/03/18 Sulfamethoxazole/Trimethoprim* (Bactrim Ds* Tablet) 1 Each Tablet, 1 TAB PO BID, #14 TAB Prov:MICHELLE LANDRUM PA-C 02/26/19 Sulfamethoxazole/Trimethoprim* (Bactrim Ds* Tablet) 1 Each Tablet, 1 TAB PO BID, #7 TAB Prov:FILEMON HERNADEZ PA-C 01/01/19 Tramadol HCl (Tramadol HCl) 50 Mg Tablet, 50 MG PO Q6 PRN for PAIN, #20 TAB Prov:FILEMON HERNADEZ PA-C 01/01/19 Follow-up Plan PCP 1 week Primary Care Provider Not On Staff Doctor Time spent on discharge: < 30 minutes Pending Labs Laboratory Tests Test 03/12/19 12:25 03/13/19 04:25 Urine Color JOSEPH (YELLOW) Urine Clarity CLEAR (CLEAR) Urine pH 5.0 (5.0-9.0) Urine Specific [place] 1.032 (1.003-1.030) Urine Ketones NEGATIVE mg/dL (NEGATIVE) Urine Nitrite NEGATIVE mg/dL (NEGATIVE) Urine Bilirubin NEGATIVE mg/dL (NEGATIVE) Urine Urobilinogen 2+ mg/dL (NEGATIVE) Urine Leukocyte Esterase NEGATIVE Mayra/ul Urine Hemoglobin NEGATIVE mg/dL (NEGATIVE) Urine Glucose NEGATIVE mg/dL (NEGATIVE) Urine Total Protein NEGATIVE mg/dl (NEGATIVE) Urine Opiates Screen Positive (NEGATIVE) Urine Barbiturates Negative (NEGATIVE) Urine Amphetamines Screen Negative (NEGATIVE) Urine Benzodiazepines Negative (NEGATIVE) Screen Urine Cocaine Screen Negative (NEGATIVE) Urine Cannabinoids Negative (NEGATIVE) White Blood Count 10.1 10^3/ul (4.8-10.8) Red Blood Count 5.15 10^6/ul (4.70-6.10) Hemoglobin 16.3 g/dl (14.0-18.0) Hematocrit 48.8 % (42.0-52.0) Mean Corpuscular Volume 94.8 fl (82.0-101.0) Mean Corpuscular 31.7 pg (29.0-33.0) Hemoglobin Mean Corpuscular 33.4 g/dl (32.0-37.0) Hemoglobin Concent Red Cell Distribution 13.1 % (11.5-14.5) Width Platelet Count 247 10^3/UL (140-415) Mean Platelet Volume 9.4 fl (7.4-10.4) Immature Granulocytes % 0.400 % (0.001-0.429) Neutrophils % 64.5 % (39.0-77.0) Lymphocytes % 26.1 % (15.0-51.0) Monocytes % 8.5 % (0.0-11.0) Eosinophils % 0.1 % (0.0-7.0) Basophils % 0.4 % (0.0-2.0) Nucleated Red Blood Cells 0.0 /100WBC (0.0-0.0) % Immature Granulocytes # 0.040 10^3/ul (0.0-0.031) Neutrophils # 6.5 10^3/ul (1.6-7.5) Lymphocytes # 2.6 10^3/ul (0.8-2.9) Monocytes # 0.9 10^3/ul (0.3-0.9) Eosinophils # 0.0 10^3/ul (0.0-0.5) Basophils # 0.0 10^3/ul (0.0-0.1) Nucleated Red Blood Cells 0.0 10^3/ul (0.0-0.0) # Sodium Level 144 mmol/L (135-144) Potassium Level 4.3 mmol/L (3.5-5.1) Chloride Level 103 mmol/L (97-110) Carbon Dioxide Level 31 mmol/L (21-31) Anion Gap 10 (5-13) Blood Urea Nitrogen 13 mg/dl (7-20) Creatinine 0.68 mg/dl (0.61-1.24) Est Glomerular Filtrat > 60 mL/min (>60) Rate mL/min Glucose Level 106 mg/dl (70-220) Calcium Level 9.0 mg/dl (8.4-10.2) Troponin I < 0.012 ng/ml (0.000-0.120) Triglycerides Level 162 mg/dl (0-149) Cholesterol Level 139 mg/dl (100-200) LDL Cholesterol, 75 mg/dl Calculated HDL Cholesterol 32 mg/dl (28-63) Cholesterol/HDL Ratio 4.3 RATIO Microbiology Date/Time Source Procedure Growth Status 03/12/19 13:00 Ulcer Gram Stain Pending Resulted 03/12/19 13:00 Wound Culture - Preliminary Catherine Albicans Resulted JIMMY RAMESH Mar 13, 2019 12:07
--- NOTE | 2019-03-14 11:09 | RADRPT ---
Vent Rate: 79 bpm RR Interval: 764 msec IA Interval: 181 msec QRS Duration: 104 msec QT Interval: 378 msec QTC Interval: 432 msec P-R-T [place]: 23 - 65 - 27 degrees Sinus rhythm...normal P axis, V-rate 50- 99 ST elev, probable normal early repol pattern...ST elevation, age<55 Electronically Signed By: Braden Gibson
== END 2019-03-13 12:29 | disposition home or self-care (01) ==
LOC: E/R 23:44 → 6WM 03-12 03:11
PROVIDERS: ADMIT Internal Medicine Nephrology; ATTEND Internal Medicine Nephrology
DX: R07.9 Chest pain, unspecified (principal); I65.22 Occlusion and stenosis of left carotid artery; I10 Essential (primary) hypertension; E66.01 Morbid (severe) obesity due to excess calories; B37.49 Other urogenital candidiasis; Z68.41 Body mass index [BMI] 40.0-44.9, adult; M17.0 Bilateral primary osteoarthritis of knee; K76.0 Fatty (change of) liver, not elsewhere classified; F17.210 Nicotine dependence, cigarettes, uncomplicated; Z79.82 Long term (current) use of aspirin
CPT/HCPCS: 36415; 71045; 80048; 80061; 80307; 81003; 82550; 82553; 84484; 85025; 87070; 93005; 96374; 96375; J2270; J2405; Z7500; Z7502; Z7610; G0378